=== PATIENT | male | born 1960 | race Caucasian/White ===

== ENCOUNTER 2019-01-19 10:06 | Observation (INO) ==
--- NOTE | 2019-01-19 10:46 | Emergency Department Note ---
Disposition Clinical Impression: Lactic acidosis Nausea and vomiting Qualifiers: Vomiting type: unspecified Vomiting Intractability: intractable Qualified Code(s): R11.2 - Nausea with vomiting, unspecified Follicular lymphoma Qualifiers: Follicular lymphoma grade: unspecified grade Lymphoma site: axillary Qualified Code(s): C82.94 - Follicular lymphoma, unspecified, lymph nodes of axilla and upper limb Disposition: Admitted As Inpatient Condition: Fair Referrals: Brianna Bojorquez MD [Primary Care Provider] - Forms: ED Satisfaction Letter, Work/School Release Abdominal Pain HPI - General Chief Complaint: ED Abdominal Pain Stated Complaint: abd pain,vomiting Time Seen by Provider: 01/19/19 10:13 Nursing Notes Reviewed: Yes Vital Signs Reviewed: Yes - History of Present Illness HPI Narrative: 58 year old male with history of follicular lymphoma stage III who presents the emergency department with complaint of nausea, vomiting, diarrhea and abdominal pain for the last 2 weeks, worse over the last three days. He started taking Idelalisisb in September 2018 and believes his medication is causing his symptoms. He is followed with Dr. Sosa on 01/16/19 but at that point was not having any significant nausea, vomiting. He states he has been unable to keep down any of his medications and feels very tired and rundown since that time. He states the abdominal pain is the worst it has ever been. He did have fever a few days ago. He otherwise states he has baseline shortness of breath due to COPD, not significantly changed, but denies any chest pain, dysuria, hematuria. Pain Scale: 9 - Related Data Home Medications Medication Instructions Recorded Confirmed Albuterol Sulfate [Proair HFA] 2 puff IH BID 04/16/15 01/16/19 Docusate Sodium [Col-Rite] 100 mg PO PRN PRN 04/16/15 01/16/19 Oxycodone HCl/Acetaminophen 1 tab PO TID PRN 04/16/15 01/16/19 [Percocet 10-325 mg Tablet] Sennosides [Natural Vegetable 8.6 mg PO PRN PRN 04/16/15 01/16/19 Laxative] clonazePAM [Klonopin] 1 mg PO HS 04/16/15 01/16/19 Acetaminophen [Tylenol] 325 mg PO Q6HR PRN 10/18/16 01/16/19 Sildenafil Citrate [Viagra] 100 mg PO DAILY PRN 10/18/16 01/16/19 Tiotropium [Spiriva] 1 cap IH DAILY 10/18/16 01/16/19 Ondansetron HCl 4 mg PO Q6H PRN 12/27/16 01/16/19 Morphine Sulfate [Morphine Sulfate 30 mg PO BID 01/16/19 01/16/19 ER] Previous Rx's Medication Instructions Recorded Prochlorperazine Maleate 10 mg PO Q6HR PRN #30 tablet 10/06/17 [Compazine] Cyanocobalamin (Vitamin B-12) 1,000 mcg PO DAILY #30 tab 08/17/18 [Vitamin B12] Folic Acid 1 mg PO DAILY #30 tablet 08/17/18 Lactulose 15 ml PO BID #900 mls 11/07/18 Sulfamethoxazole/Trimeth DS 1 each PO DAILY #30 tablet 12/11/18 [Bactrim DS] Idelalisib [Zydelig] 150 mg PO BID #60 tablet 01/16/19 Allergies Allergy/AdvReac Type Severity Reaction Status Date / Time Penicillins Allergy Severe Swelling Verified 01/19/19 13:25 of Lip/Tongue/Throat Review of Systems: ROS per history of present illness, all other systems reviewed and negative or normal. All systems ED: reviewed and negative except as stated. Review of Systems: As Per HPI Abdominal Pain PMH - Past Medical History Medical history: Reports: cancer, hyperlipidemia, other Male Surgical History: Reports: breast surgery, Tonsillectomy Psychiatric history: Reports: depression - Social History Smoking status: Current every day smoker Alcohol use: Reports: none Drug use: Reports: none Physical Exam General: Conversant. No apparent distress. Follow commands. Appears significantly older than stated age. Thin and cachectic. Neck: No JVD. Trachea midline. Neck supple. Eyes: PERRL. No scleral icterus. HENT: Normocephalic and atraumatic. Dry mucus membranes. Cardiovascular: Regular rate and rhythm. Normal S1 and S2. No murmurs appreciated. Normal capillary refill. Extremities well perfused with 2+ distal pulses bilaterally. No edema. Pulmonary: Normal and equal breath sounds bilaterally, anteriorly and posteriorly. No wheezes, rales, or rhonchi. Not in respiratory distress. Speaks in full sentences. Abdomen: Soft, nondistended. Guarding and tenderness throughout. Neuro: Alert and oriented x3. No slurred speech. No focal deficits noted. Skin: No rashes noted on visualized skin. He will Musculoskeletal: No bony abnormalities visualized. Moves all extremities. Psych: Normal mood. Pleasant. Makes appropriate eye contact. - General General appearance: alert Course Vital Signs Temperature 98.5 F 01/19/19 10:16 Pulse Rate 98 01/19/19 10:16 Respiratory Rate 20 01/19/19 10:16 Blood Pressure 134/82 01/19/19 10:16 O2 Sat by Pulse Oximetry 98 01/19/19 10:16 Temperature 98.5 F 01/19/19 10:16 Pulse Rate 98 01/19/19 10:16 Respiratory Rate 20 01/19/19 10:16 Blood Pressure 134/82 01/19/19 10:16 O2 Sat by Pulse Oximetry 98 01/19/19 10:16 Oxygen Delivery Oxygen Delivery Room Air Abdominal Pain - MDM Narrative Medical decision making narrative: 58 year old male who presents the emergency department due to in lead to tolerate oral medications or fluid. He has had significant weight loss over the last couple of months. He continues to have significant abdominal pain. He was seen by his oncologist approximately 4 days ago but at that point was not having significant nausea and vomiting. On arrival the patient is borderline tachycardic but has no fever but appears overall unwell. He appears dehydrated. He has diffuse abdominal tenderness and given his history of follicular lymphoma we did obtain CBC, BMP, lipase, lactate, urinalysis as well as CT ab domen and pelvis. The patient has no evidence of anemia, only mild hyponatremia of 135 without other significant electrolyte abnormalities. Blood cultures were drawn given recent fever and immunocompromised status. Urinalysis shows no evidence of urinary tract infection. Lactate elevated at 2.3. The patient was given 2 L fluid bolus as well as IV Zofran and Dilaudid. EKG shows normal sinus rhythm rate of [address] abdomen shows diffuse colitis, chest x-ray shows New left upper lobe scarring likely secondary to treatment. Given the patient's inability to tolerate anything oral at home and dehydrated appearance to believe warrants admission for continued management. He states he has been unable to care for himself due to significant weakness and vomiting. Discussed case with on-call hospitalist Dr. Smiley who agrees with plan for admission and accepts the patient to the inpatient service. Patient agrees with and understands course of treatment plan including plan for admission. All questions answered. - Medical Records Medical records reviewed: Yes I reviewed the patient's medical records. - Lab Data Lab results reviewed: Yes I reviewed the patient's lab results. Result diagrams: 01/19/19 11:04 01/19/19 11:04 Lab Results 01/19/19 01/19/19 01/19/19 Range/Units 11:04 11:04 11:04 WBC 7.7 (4.3-11.1) K/mcL RBC 4.27 (4.19-5.50) M/mcL Hgb 14.1 (12.9-16.9) g/dL Hct 41.8 (37.5-50.1) % MCV 97.9 (83.0-100.0) fL MCH 33.0 (28.0-33.3) pg MCHC 33.7 (31.6-35.5) g/dL RDW 12.9 (11.5-14.5) % Plt Count 326 (140-400) K/mcL MPV 8.8 L (9.4-12.4) fL Immature Gran % 0.4 (0-4) % Seg Neutrophils % 67.1 % Lymphocytes % 17.4 % Monocytes % 13.1 % Eosinophils % 1.7 % Basophils % 0.3 % Neutrophils # 5.2 (1.6-8.9) K/mcL Lymphocytes # 1.3 (0.6-4.6) K/mcL Monocytes # 1.0 (0.0-1.3) K/mcL Eosinophils # 0.1 (0.0-0.6) K/mcL Basophils # 0.0 (0.0-0.2) K/mcL Sodium 135 L (136-145) mEq/L Potassium 3.8 (3.5-5.1) mEq/L Chloride 98 (98-107) mEq/L Carbon Dioxide 28 (23-29) mEq/L BUN 8 (6-20) mg/dL Creatinine 0.70 (0.70-1.30) mg/dL Est GFR ( Amer) > 60 (> 60) Est GFR (Non-Af Amer) > 60 (> 60) BUN/Creatinine Ratio 11 (6-26) Glucose 124 H (70-105) mg/dL Calculated Osmolality 280 (280-300) Lactic Acid (0.5-2.2) mmol/L Calcium 9.1 (8.6-10.3) mg/dL Magnesium 1.8 (1.6-2.6) mg/dL Total Bilirubin 0.5 (0.3-1.0) mg/dL Direct Bilirubin 0.1 (0.0-0.2) mg/dL Indirect Bilirubin 0.4 (0.0-1.2) mg/dL AST 16 (13-39) Units/L ALT 18 (7-52) Units/L Alkaline Phosphatase 92 (34-104) Units/L Serum Total Protein 6.3 L (6.4-8.9) g/dL Albumin 3.7 (3.5-5.7) g/dL Globulin 2.6 (2.4-3.5) g/dL Albumin/Globulin Ratio 1.4 (1.1-2.2) Lipase 18 (11-82) Units/L Urine Color Dark Yellow (Yellow) Urine Clarity Clear (Clear) Urine pH 6.0 (5.0-8.0) pH Units Ur Specific [place] 1.016 (1.010-1.025) Urine Protein Trace (Neg-Trace) mg/dL Urine Glucose (UA) Normal (Normal) mg/dL Urine Ketones Negative (Negative) mg/dL Urine Blood Negative (Negative) Urine Nitrite Negative (Negative) Urine Bilirubin Negative (Negative) Urine Urobilinogen Normal (Normal) mg/dL Ur Leukocyte Esterase Negative (Negative) Ur Culture Indicated? NO (NO) 01/19/19 Range/Units 11:21 WBC (4.3-11.1) K/mcL RBC (4.19-5.50) M/mcL Hgb (12.9-16.9) g/dL Hct (37.5-50.1) % MCV (83.0-100.0) fL MCH (28.0-33.3) pg MCHC (31.6-35.5) g/dL RDW (11.5-14.5) % Plt Count (140-400) K/mcL MPV (9.4-12.4) fL Immature Gran % (0-4) % Seg Neutrophils % % Lymphocytes % % Monocytes % % Eosinophils % % Basophils % % Neutrophils # (1.6-8.9) K/mcL Lymphocytes # (0.6-4.6) K/mcL Monocytes # (0.0-1.3) K/mcL Eosinophils # (0.0-0.6) K/mcL Basophils # (0.0-0.2) K/mcL Sodium (136-145) mEq/L Potassium (3.5-5.1) mEq/L Chloride (98-107) mEq/L Carbon Dioxide (23-29) mEq/L BUN (6-20) mg/dL Creatinine (0.70-1.30) mg/dL Est GFR ( Amer) (> 60) Est GFR (Non-Af Amer) (> 60) BUN/Creatinine Ratio (6-26) Glucose (70-105) mg/dL Calculated Osmolality (280-300) Lactic Acid 2.3 H (0.5-2.2) mmol/L Calcium (8.6-10.3) mg/dL Magnesium (1.6-2.6) mg/dL Total Bilirubin (0.3-1.0) mg/dL Direct Bilirubin (0.0-0.2) mg/dL Indirect Bilirubin (0.0-1.2) mg/dL AST (13-39) Units/L ALT (7-52) Units/L Alkaline Phosphatase (34-104) Units/L Serum Total Protein (6.4-8.9) g/dL Albumin (3.5-5.7) g/dL Globulin (2.4-3.5) g/dL Albumin/Globulin Ratio (1.1-2.2) Lipase (11-82) Units/L Urine Color (Yellow) Urine Clarity (Clear) Urine pH (5.0-8.0) pH Units Ur Specific [place] (1.010-1.025) Urine Protein (Neg-Trace) mg/dL Urine Glucose (UA) (Normal) mg/dL Urine Ketones (Negative) mg/dL Urine Blood (Negative) Urine Nitrite (Negative) Urine Bilirubin (Negative) Urine Urobilinogen (Normal) mg/dL Ur Leukocyte Esterase (Negative) Ur Culture Indicated? (NO) - Radiology Data Radiology results reviewed: Yes I reviewed the patient's radiology results. Abdomen/Pelvis CT 01/19/19 11:03 IMPRESSION: 1. Stable diffuse circumferential wall thickening of the colon, most consistent with a diffuse infectious or inflammatory colitis. There is no evidence of pneumatosis, perforation, or free air. 2. Stable small left pleural effusion and left lower lobe airspace consolidation, representing either atelectasis or pneumonia. 3. Stable chronic nonspecific biliary ductal dilatation without definite demonstrable cause. 4. Patient status post partial left nephrectomy. D/ / 01/19/2019 12:30:28 Yohannes Leonard MD / cherry Interpreting Provider: Yohannes Leonard MD Chest X-Ray 01/19/19 11:04 IMPRESSION: 1. New left upper lobe scarring could be related to post treatment changes. 2. Unchanged small left pleural effusion. D/ / Nolan Kidd MD / Nolan Kidd MD Interpreting Provider: Nolan Kidd MD - EKG Data EKG attestation: Yes I reviewed and interpreted this EKG. EKG results narrative: Normal sinus rhythm rate of 90. Normal axis. No inversions in aVL and deep into, axis and V2 but otherwise no significant changes. No acute ischemic T- wave abnormalities. No change when compared with prior from 12/20/12.
--- NOTE | 2019-01-19 11:07 | Emergency Department Note ---
Disposition Clinical Impression: Lactic acidosis Nausea and vomiting Qualifiers: Vomiting type: unspecified Vomiting Intractability: intractable Qualified Code(s): R11.2 - Nausea with vomiting, unspecified Follicular lymphoma Qualifiers: Follicular lymphoma grade: grade II Lymphoma site: axillary Qualified Code(s): C82.14 - Follicular lymphoma grade II, lymph nodes of axilla and upper limb Disposition: Admitted As Inpatient Condition: Fair General Adult HPI - General Chief complaint: ED Abdominal Pain Stated complaint: abd pain,vomiting Time Seen by Provider: 01/19/19 10:13 Nursing Notes Reviewed: Yes Vital Signs Reviewed: Yes - History of Present Illness Pain Scale: 9 - Related Data Home Medications Medication Instructions Recorded Confirmed Albuterol Sulfate [Proair HFA] 2 puff IH BID 04/16/15 01/16/19 Docusate Sodium [Col-Rite] 100 mg PO PRN PRN 04/16/15 01/16/19 Oxycodone HCl/Acetaminophen 1 tab PO TID PRN 04/16/15 01/16/19 [Percocet 10-325 mg Tablet] Sennosides [Natural Vegetable 8.6 mg PO PRN PRN 04/16/15 01/16/19 Laxative] clonazePAM [Klonopin] 1 mg PO HS 04/16/15 01/16/19 Acetaminophen [Tylenol] 325 mg PO Q6HR PRN 10/18/16 01/16/19 Sildenafil Citrate [Viagra] 100 mg PO DAILY PRN 10/18/16 01/16/19 Tiotropium [Spiriva] 1 cap IH DAILY 10/18/16 01/16/19 Ondansetron HCl 4 mg PO Q6H PRN 12/27/16 01/16/19 Morphine Sulfate [Morphine Sulfate 30 mg PO BID 01/16/19 01/16/19 ER] Previous Rx's Medication Instructions Recorded Prochlorperazine Maleate 10 mg PO Q6HR PRN #30 tablet 10/06/17 [Compazine] Cyanocobalamin (Vitamin B-12) 1,000 mcg PO DAILY #30 tab 08/17/18 [Vitamin B12] Folic Acid 1 mg PO DAILY #30 tablet 08/17/18 Lactulose 15 ml PO BID #900 mls 11/07/18 Sulfamethoxazole/Trimeth DS 1 each PO DAILY #30 tablet 12/11/18 [Bactrim DS] Idelalisib [Zydelig] 150 mg PO BID #60 tablet 01/16/19 Allergies Allergy/AdvReac Type Severity Reaction Status Date / Time Penicillins Allergy Severe Swelling Verified 01/19/19 13:25 of Lip/Tongue/Throat Past Medical History - Past Medical History Medical history: Reports: cancer, hyperlipidemia, other Psychiatric history: Reports: depression - Social History Smoking Status: Current every day smoker Smokeless Tobacco Status: No Alcohol use: Reports: none Drug use: Reports: none Physical Exam - General General appearance: alert Course Vital Signs Temperature 98.5 F 01/19/19 10:16 Pulse Rate 98 01/19/19 10:16 Respiratory Rate 20 01/19/19 10:16 Blood Pressure 134/82 01/19/19 10:16 O2 Sat by Pulse Oximetry 98 01/19/19 10:16 Temperature 98.5 F 01/19/19 10:16 Pulse Rate 98 01/19/19 10:16 Respiratory Rate 20 01/19/19 10:16 Blood Pressure 134/82 01/19/19 10:16 O2 Sat by Pulse Oximetry 98 01/19/19 10:16 Oxygen Delivery Oxygen Delivery Room Air Medical Decision Making - [facility] Narrative Medical decision making narrative: Abdomen/Pelvis CT 01/19/19 11:03 IMPRESSION: 1. Stable diffuse circumferential wall thickening of the colon, most consistent with a diffuse infectious or inflammatory colitis. There is no evidence of pneumatosis, perforation, or free air. 2. Stable small left pleural effusion and left lower lobe airspace consolidation, representing either atelectasis or pneumonia. 3. Stable chronic nonspecific biliary ductal dilatation without definite demonstrable cause. 4. Patient status post partial left nephrectomy. D/ / Yohannes Leonard MD / Yohannes Leonard MD Interpreting Provider: Yohannes Leonard MD Chest X-Ray 01/19/19 11:04 IMPRESSION: 1. New left upper lobe scarring could be related to post treatment changes. 2. Unchanged small left pleural effusion. D/ / Nolan Kidd MD / Nolan Kidd MD Interpreting Provider: Nolan Kidd MD 12:24 hours: We will reassess patient. And then most likely admission. 1315 hrs.: Patient's labs all look that bad but with his not being a year drink and failing outpatient therapy a think he needs come in. Hospitalist as accepted patient for admission patient's in agreement. - Lab Data Result diagrams: 01/19/19 11:04 01/19/19 11:04 Lab Results 01/19/19 01/19/19 01/19/19 Range/Units 11:04 11:04 11:04 WBC 7.7 (4.3-11.1) K/mcL RBC 4.27 (4.19-5.50) M/mcL Hgb 14.1 (12.9-16.9) g/dL Hct 41.8 (37.5-50.1) % MCV 97.9 (83.0-100.0) fL MCH 33.0 (28.0-33.3) pg MCHC 33.7 (31.6-35.5) g/dL RDW 12.9 (11.5-14.5) % Plt Count 326 (140-400) K/mcL MPV 8.8 L (9.4-12.4) fL Immature Gran % 0.4 (0-4) % Seg Neutrophils % 67.1 % Lymphocytes % 17.4 % Monocytes % 13.1 % Eosinophils % 1.7 % Basophils % 0.3 % Neutrophils # 5.2 (1.6-8.9) K/mcL Lymphocytes # 1.3 (0.6-4.6) K/mcL Monocytes # 1.0 (0.0-1.3) K/mcL Eosinophils # 0.1 (0.0-0.6) K/mcL Basophils # 0.0 (0.0-0.2) K/mcL Sodium 135 L (136-145) mEq/L Potassium 3.8 (3.5-5.1) mEq/L Chloride 98 (98-107) mEq/L Carbon Dioxide 28 (23-29) mEq/L BUN 8 (6-20) mg/dL Creatinine 0.70 (0.70-1.30) mg/dL Est GFR ( Amer) > 60 (> 60) Est GFR (Non-Af Amer) > 60 (> 60) BUN/Creatinine Ratio 11 (6-26) Glucose 124 H (70-105) mg/dL Calculated Osmolality 280 (280-300) Lactic Acid (0.5-2.2) mmol/L Calcium 9.1 (8.6-10.3) mg/dL Magnesium 1.8 (1.6-2.6) mg/dL Total Bilirubin 0.5 (0.3-1.0) mg/dL Direct Bilirubin 0.1 (0.0-0.2) mg/dL Indirect Bilirubin 0.4 (0.0-1.2) mg/dL AST 16 (13-39) Units/L ALT 18 (7-52) Units/L Alkaline Phosphatase 92 (34-104) Units/L Serum Total Protein 6.3 L (6.4-8.9) g/dL Albumin 3.7 (3.5-5.7) g/dL Globulin 2.6 (2.4-3.5) g/dL Albumin/Globulin Ratio 1.4 (1.1-2.2) Lipase 18 (11-82) Units/L Urine Color Dark Yellow (Yellow) Urine Clarity Clear (Clear) Urine pH 6.0 (5.0-8.0) pH Units Ur Specific [place] 1.016 (1.010-1.025) Urine Protein Trace (Neg-Trace) mg/dL Urine Glucose (UA) Normal (Normal) mg/dL Urine Ketones Negative (Negative) mg/dL Urine Blood Negative (Negative) Urine Nitrite Negative (Negative) Urine Bilirubin Negative (Negative) Urine Urobilinogen Normal (Normal) mg/dL Ur Leukocyte Esterase Negative (Negative) Ur Culture Indicated? NO (NO) 01/19/19 Range/Units 11:21 WBC (4.3-11.1) K/mcL RBC (4.19-5.50) M/mcL Hgb (12.9-16.9) g/dL Hct (37.5-50.1) % MCV (83.0-100.0) fL MCH (28.0-33.3) pg MCHC (31.6-35.5) g/dL RDW (11.5-14.5) % Plt Count (140-400) K/mcL MPV (9.4-12.4) fL Immature Gran % (0-4) % Seg Neutrophils % % Lymphocytes % % Monocytes % % Eosinophils % % Basophils % % Neutrophils # (1.6-8.9) K/mcL Lymphocytes # (0.6-4.6) K/mcL Monocytes # (0.0-1.3) K/mcL Eosinophils # (0.0-0.6) K/mcL Basophils # (0.0-0.2) K/mcL Sodium (136-145) mEq/L Potassium (3.5-5.1) mEq/L Chloride (98-107) mEq/L Carbon Dioxide (23-29) mEq/L BUN (6-20) mg/dL Creatinine (0.70-1.30) mg/dL Est GFR ( Amer) (> 60) Est GFR (Non-Af Amer) (> 60) BUN/Creatinine Ratio (6-26) Glucose (70-105) mg/dL Calculated Osmolality (280-300) Lactic Acid 2.3 H (0.5-2.2) mmol/L Calcium (8.6-10.3) mg/dL Magnesium (1.6-2.6) mg/dL Total Bilirubin (0.3-1.0) mg/dL Direct Bilirubin (0.0-0.2) mg/dL Indirect Bilirubin (0.0-1.2) mg/dL AST (13-39) Units/L ALT (7-52) Units/L Alkaline Phosphatase (34-104) Units/L Serum Total Protein (6.4-8.9) g/dL Albumin (3.5-5.7) g/dL Globulin (2.4-3.5) g/dL Albumin/Globulin Ratio (1.1-2.2) Lipase (11-82) Units/L Urine Color (Yellow) Urine Clarity (Clear) Urine pH (5.0-8.0) pH Units Ur Specific [place] (1.010-1.025) Urine Protein (Neg-Trace) mg/dL Urine Glucose (UA) (Normal) mg/dL Urine Ketones (Negative) mg/dL Urine Blood (Negative) Urine Nitrite (Negative) Urine Bilirubin (Negative) Urine Urobilinogen (Normal) mg/dL Ur Leukocyte Esterase (Negative) Ur Culture Indicated? (NO) Attestation Statement - Attestation Attestation: This documentation is done with the assistance of Dragon dictation. Despite efforts made to ensure accuracy, there may be inaccuracies in ceiling insulation blower or spelling and typographical errors. I examined this patient and my medical decision-making was reviewed with the Resident Physician. I agree with the documented findings, disposition and treatment plan as described except to the extent set forth below. Patient seen and evaluated today by Dr. Israel and myself, I agree with her evaluation and management plan, I supervised the care the patient's stay. Patient presents today with abdominal pain and weight loss vomiting and constipation he has had a history of follicular carcinoma he has falls with the oncology center. He has had at least a 60 weight loss or last couple months. History of colitis recently also. It looks like anemia. Was seen and he says that a potassium infusion potassium infusion. Not feeling better. Were going to do a workup on him CT his abdomen and reassess most likely he will need admission.
[2019-01-19] MEDS ORDERED: *HR* HYDROmorphone (PF) 1 MG/ML SYRINGE IVP ONE (11:08)
[2019-01-19] MEDS ORDERED: 0.9 % Sodium Chloride 1,000 ML IVC ONE (11:08)
[2019-01-19] MEDS ORDERED: Ondansetron 4 MG/2 ML VIAL IVP ONE (11:08)
[2019-01-19 11:24] LABS: Bilirubin,Urine Negative (Negative); Blood,Urine Negative (Negative); Clarity,Urine Clear (Clear); Color,Urine Dark Yellow (Yellow); Glucose,Urine (UA) Normal (Normal); Ketones,Urine Negative (Negative); Leukocyte Esterase,Urine Negative (Negative); Nitrite,Urine Negative (Negative); Protein,Urine Trace mg/dL (Neg-Trace); Specific Gravity,Urine 1.016 (1.010-1.025); Urobilinogen,Urine Normal (Normal)
[2019-01-19 11:32] LABS: Basophils % 0.3 %; Eosinophils # 0.1 K/mcL (0.0-0.6); Eosinophils % 1.7 %; Hematocrit 41.8 % (37.5-50.1); Hemoglobin 14.1 g/dL (12.9-16.9); Immature Granulocytes % 0.4 % (0-4); Lymphocytes # 1.3 K/mcL (0.6-4.6); Lymphocytes % 17.4 %; Mean Corpuscular HGB Conc 33.7 g/dL (31.6-35.5); Mean Corpuscular Volume 97.9 fL (83.0-100.0); Mean Platelet Volume 8.8 fL (9.4-12.4); Monocytes % 13.1 %; Neutrophils # 5.2 K/mcL (1.6-8.9); Platelet Count 326 K/mcL (140-400); Red Blood Count 4.27 M/mcL (4.19-5.50); Red Cell Distribution Width 12.9 % (11.5-14.5); Segmented Neutrophils % 67.1 %
[2019-01-19 11:40] LABS: Alanine Aminotransferase 18 Units/L (7-52); Albumin 3.7 g/dL (3.5-5.7); Alkaline Phosphatase 92 Units/L (34-104); Aspartate Amino Transferase 16 Units/L (13-39); BUN/Creatinine Ratio 11 (6-26); Bilirubin,Direct 0.1 mg/dL (0.0-0.2); Bilirubin,Indirect 0.4 mg/dL (0.0-1.2); Bilirubin,Total 0.5 mg/dL (0.3-1.0); Blood Urea Nitrogen 8 mg/dL (6-20); Calcium 9.1 mg/dL (8.6-10.3); Carbon Dioxide 28 mEq/L (23-29); Chloride 98 mEq/L (98-107); Glucose 124 mg/dL (70-105); Magnesium 1.8 mg/dL (1.6-2.6); Osmolality,Calculated 280 (280-300); Potassium 3.8 mEq/L (3.5-5.1); Sodium 135 mEq/L (136-145); Total Protein 6.3 g/dL (6.4-8.9); eGFR For Non-African Americans > 60 (> 60)
[2019-01-19 11:41] LABS: Albumin/Globulin Ratio 1.4 (1.1-2.2); Globulin 2.6 g/dL (2.4-3.5); Lipase 18 Units/L (11-82)
[2019-01-19] MEDS ORDERED: Naloxone 0.4 MG/ML INJ IVP PRN (13:33)
[2019-01-19] MEDS ORDERED: 0.9 % Sodium Chloride 1,000 ML IVC STA (13:35)
--- NOTE | 2019-01-19 14:08 | Internal Med History&Physical ---
Date of Encounter: 01/19/19 Time of Encounter: 13:58 Internal Medicine - H&P: HPI Chief complaint: diarrhea Admitted From: Home Plans for Post Hospital Care: Home History of present illness: Mr. 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 as per patient his diarrhea started about one week ago and has been progressively worsening. he describes his diarrhea as water stools, without blood. he has had >7 BMs in olga past 12 hours which prompter him to come to the ED. in addition to diarrhea he also complains of diffuse, non-radiating abdominal cramping that accompanies the diarrhea. he denies tenesmus or incontinence. noone else in the family has had similar symptoms. new medication Idelalisisb was added to his medication regimen since september last dose taken was on 01/16. he discussed his diarrhea with his oncologist who ordered PO Abx and IV hydration however since he continued to have diarrhea he decided to come to the ED for further management. furthermore he now has developed nausea adn is unable to tolerate any of his medication nor food/liquids. he denies eating at restaurants, has had no skin color changes. denies taking over the counter medications. he denies fever, chills, chest pain, SOB, URTI, leg pain, leg swelling, calf tenderness, orthopnea or PND. Past Med Surg Social Fam HX - Past Medical History Medical history: cancer, hyperlipidemia, other Additional medical history: lymphoma, sarcoma, murmur Psychiatric history: depression - Past Surgical History Additional surgical history: partial left nephrectomy - Social History Smoking Status: Current every day smoker Smokeless Tobacco Status: No Alcohol use: none Drug use: none Internal Medicine - H&P: Meds Albuterol Sulfate [Proair HFA] 2 puff IH BID 04/16/15 [History] Docusate Sodium [Col-Rite] 100 mg PO PRN PRN 04/16/15 [History] Oxycodone HCl/Acetaminophen [Percocet 10-325 mg Tablet] 1 tab PO TID PRN 04/16/15 [History] Sennosides [Natural Vegetable Laxative] 8.6 mg PO PRN PRN 04/16/15 [History] clonazePAM [Klonopin] 1 mg PO HS 04/16/15 [History] Acetaminophen [Tylenol] 325 mg PO Q6HR PRN 10/18/16 [History] Sildenafil Citrate [Viagra] 100 mg PO DAILY PRN 10/18/16 [History] Tiotropium [Spiriva] 1 cap IH DAILY 10/18/16 [History] Ondansetron HCl 4 mg PO Q6H PRN 12/27/16 [History] Prochlorperazine Maleate [Compazine] 10 mg PO Q6HR PRN #30 tablet 10/06/17 [Rx] Cyanocobalamin (Vitamin B-12) [Vitamin B12] 1,000 mcg PO DAILY #30 tab 08/17/18 [Rx] Folic Acid 1 mg PO DAILY #30 tablet 08/17/18 [Rx] Lactulose 15 ml PO BID #900 mls 11/07/18 [Rx] Sulfamethoxazole/Trimeth DS [Bactrim DS] 1 each PO DAILY #30 tablet 12/11/18 [Rx] Idelalisib [Zydelig] 150 mg PO BID #60 tablet 01/16/19 [Rx] Morphine Sulfate [Morphine Sulfate ER] 30 mg PO BID 01/16/19 [History] Allergy/AdvReac Type Severity Reaction Status Date / Time Penicillins Allergy Severe Swelling Verified 01/19/19 13:25 of Lip/Tongue/Throat All Systems PM: A 10-system review of systems was performed and is negative for pertinent findings except as documented above in the HPI. - Constitutional Vitals: Temp Pulse Resp BP Pulse Ox 98.5 F 98 20 134/82 98 01/19/19 10:16 01/19/19 10:16 01/19/19 10:16 01/19/19 10:16 01/19/19 10:16 Exam: General: Patient is alert, oriented, no acute distress, looks much older than his age Head: atraumatic, normocephalic, Eye: normal appearance, PERRL, no scleral icterus, no conjunctival injection ENT: mucous membranes moist, normal external ear exam Neck: normal inspection, trachea midline, full ROM, no carotid bruits Chest: normal inspection, symmetric chest rise Respiratory: Good respiratory effort. Bilateral breath sounds are clear without wheezing, crackles, or rhonchi. Cardiovascular: Regular rate and rhythm. s1 and s2 No clicks, rubs, gallops, or murmors. Abdomen: Bowel sounds present normoactive x-4 quadrants. Abdomen is soft, nondistended. no Epigastric tenderness. No guarding or rebound. No organomegaly noted, has a eryhthematous maculopapular rash of the abdomen ( chronic) musculoskeletal: Spontaneously moving all extremities. no edema, no calf tenderness Skin: warm, dry, intact. Neuro: Alert and oriented x4. no focal deficit , Psych: Patient's affect is normal Internal Med - H&P Results - Labs CBC & Chem 7: 01/19/19 11:04 01/19/19 11:04 Labs: Short CBC 01/19/19 Range/Units 11:04 WBC 7.7 (4.3-11.1) K/mcL Hgb 14.1 (12.9-16.9) g/dL Hct 41.8 (37.5-50.1) % Plt Count 326 (140-400) K/mcL Neutrophils # 5.2 (1.6-8.9) K/mcL BMP 01/19/19 11:04 Sodium 135 L Potassium 3.8 Chloride 98 Carbon Dioxide 28 BUN 8 Creatinine 0.70 Glucose 124 H Calcium 9.1 Liver Function 01/19/19 Range/Units 11:04 Total Bilirubin 0.5 (0.3-1.0) mg/dL Direct Bilirubin 0.1 (0.0-0.2) mg/dL AST 16 (13-39) Units/L ALT 18 (7-52) Units/L Alkaline Phosphatase 92 (34-104) Units/L Albumin 3.7 (3.5-5.7) g/dL Urine 01/19/19 Range/Units 11:04 Urine Color Dark Yellow (Yellow) Urine Clarity Clear (Clear) Urine pH 6.0 (5.0-8.0) pH Units Ur Specific [place] 1.016 (1.010-1.025) Urine Protein Trace (Neg-Trace) mg/dL Urine Glucose (UA) Normal (Normal) mg/dL - EKG Data -: EKG Interpreted by Myself EKG shows normal: sinus rhythm - EKG Data Prior EKG available for review: no - Impressions ITS Impressions Abdomen/Pelvis CT 01/19/19 11:03 IMPRESSION: 1. Stable diffuse circumferential wall thickening of the colon, most consistent with a diffuse infectious or inflammatory colitis. There is no evidence of pneumatosis, perforation, or free air. 2. Stable small left pleural effusion and left lower lobe airspace consolidation, representing either atelectasis or pneumonia. 3. Stable chronic nonspecific biliary ductal dilatation without definite demonstrable cause. 4. Patient status post partial left nephrectomy. D/ / 01/19/2019 12:30:28 Yohannes Leonard MD / cherry Interpreting Provider: Yohannes Leonard MD Chest X-Ray 01/19/19 11:04 IMPRESSION: 1. New left upper lobe scarring could be related to post treatment changes. 2. Unchanged small left pleural effusion. D/ / Nolan Kidd MD / Nolan Kidd MD Interpreting Provider: Nolan Kidd MD - Assessment and Plan (1) Colitis presumed infectious Current Visit: Yes Status: Acute Assessment and plan: [facility] out other etiologies GI stool panel sent follow for C-Dif started on ciprofloxacin and metronidazole IV hydration watch for overload keep NPO for now zofran for nausea and vomiting hold Idelalisisb until diarrhea resolves (Dr. toledo had held it on 01/16 and postponed by 1 week) consider GI consult if symptoms do not improve follow electrolytes and replace PRN intake and output follow lactic acid Ct A/P Stable diffuse circumferential wall thickening of the colon, most consistent with a diffuse infectious or inflammatory colitis. There is no evidence of pneumatosis, perforation, or free air. (2) Follicular lymphoma Current Visit: Yes Status: Acute Assessment and plan: has history of multiple cancers including follicular lymphoma continue bactrim for PCP prophylaxis ( changed to IV) follows with Dr. Toledo consider oncology consult while in hospital. (3) COPD (chronic obstructive pulmonary disease) Current Visit: No Status: Acute Assessment and plan: bot in exacerbation continue home inhalers Qualifiers: COPD type: emphysema Emphysema type: unspecified Qualified Code(s): J43.9 - Emphysema, unspecified (4) DVT prophylaxis Current Visit: Yes Status: Acute Assessment and plan: lovenox sc - Time Spent With Patient Total time spent is greater than 50% in coordination of care (as documented) at patient's floor/unit and/or counseling patient:
[2019-01-19] MEDS: Sulfamethoxazole/Trimeth 10 ML in D5% in Water 500 ML IVPB SCH (16:07)
[2019-01-19] MEDS: Ringers Solution, Lactated 1,000 ML IVC SCH (16:08)
[2019-01-19] MEDS: MetroNIDAZOLE 500 MG/100 ML 500 MG/100 ML BAG IVPB SCH (16:08)
[2019-01-19] MEDS: OXYCODONE Oral CONC 10 MG/0.5 ML ORAL.SYG SL PRN ×2 (16:08→21:47)
[2019-01-19] MEDS: Ketorolac 15 MG/ML VIAL IVP PRN (20:08)
[2019-01-19] MEDS: clonazePAM 0.5 MG TABLET PO SCH (23:11)
[2019-01-20] MEDS: MetroNIDAZOLE 500 MG/100 ML 500 MG/100 ML BAG IVPB SCH ×3 (00:16→16:24)
[2019-01-20] MEDS: OXYCODONE Oral CONC 10 MG/0.5 ML ORAL.SYG SL PRN ×4 (02:05→19:57)
[2019-01-20 03:57] LABS: Hematocrit 37.2 % (37.5-50.1); Mean Corpuscular HGB Conc 33.6 g/dL (31.6-35.5); Mean Corpuscular Hemoglobin 33.4 pg (28.0-33.3); Mean Corpuscular Volume 99.5 fL (83.0-100.0); Mean Platelet Volume 8.9 fL (9.4-12.4); Platelet Count 287 K/mcL (140-400); Red Blood Count 3.74 M/mcL (4.19-5.50); Red Cell Distribution Width 12.8 % (11.5-14.5)
[2019-01-20 04:03] LABS: Hemoglobin 12.5 g/dL (12.9-16.9)
[2019-01-20 04:15] LABS: Alanine Aminotransferase 14 Units/L (7-52); Albumin/Globulin Ratio 1.6 (1.1-2.2); Alkaline Phosphatase 76 Units/L (34-104); Aspartate Amino Transferase 14 Units/L (13-39); BUN/Creatinine Ratio 10 (6-26); Bilirubin,Total 0.4 mg/dL (0.3-1.0); Blood Urea Nitrogen 7 mg/dL (6-20); Calcium 8.1 mg/dL (8.6-10.3); Carbon Dioxide 28 mEq/L (23-29); Chloride 99 mEq/L (98-107); Globulin 1.9 g/dL (2.4-3.5); Glucose 99 mg/dL (70-105); Magnesium 1.5 mg/dL (1.6-2.6); Osmolality,Calculated 278 (280-300); Phosphorous 3.3 mg/dL (2.7-4.5); Potassium 3.4 mEq/L (3.5-5.1); Sodium 135 mEq/L (136-145); Total Protein 4.9 g/dL (6.4-8.9); eGFR For Non-African Americans > 60 (> 60)
[2019-01-20] MEDS: Ketorolac 15 MG/ML VIAL IVP PRN ×3 (04:20→16:24)
[2019-01-20] MEDS ORDERED: Potassium Chloride Elixir 20 MEQ/15 ML UDC PO ONE (07:48)
[2019-01-20] MEDS: Ringers Solution, Lactated 1,000 ML IVC SCH ×2 (08:19→16:42)
[2019-01-20] MEDS: Tiotropium 18 MCG inhalation IH SCH (10:45)
[2019-01-20] MEDS: Nicotine 21 MG PATCH.TD24 TD SCH (11:05)
[2019-01-20] MEDS ORDERED: *HR* Promethazine 25 MG/ML VIAL IVP PRN (12:34)
--- NOTE | 2019-01-20 12:38 | Internal Med Progress Note ---
Hospitalist Progress Note - Encounter Date of Encounter: 01/20/19 Time of Encounter: 12:35 - Subjective Interval History: Pt states he feels slightly more comfortable than yesterday, although still having abd pain and loose stools and still some persistent nausea. However, currently no vomiting and states he is interested in trying PO hydration today with continued supportive care/meds. No headache fever chills SOB or swelling. - Exam Vitals: Temp Pulse Resp BP Pulse Ox 98.3 F 89 16 112/71 94 01/20/19 10:15 01/20/19 10:15 01/20/19 10:46 01/20/19 10:15 01/20/19 10:46 Exam: General: NAD, good eye contact, appears chronically ill and older than stated age Thoracic: Normal breath sounds b/l, no wheezing or crackles Cardio: Normal S1 and S2, regular rate and rhythm Abdomen: Soft, nontender, nondistended, no rebound Extremities: Warm, well perfused. DP pulses 2+ b/l. No edema. Skin: Intact. No rashes, bruises, or ulcers Neuro: Awake, fully oriented. Speech fluent - Summary of Assessment and Plan Summary of Assessment and Plan: Chris Angeles is a 58 M w hx COPD, sarcoma, renal cell carcinoma, and follicular lymphoma currently on chemo, who p/w abd pain, N/V/D, and inability to PO, with CT abd showing colitis, concerning for infectious or inflammatory colitis. Acute Colitis: presumed infectious due to immunocompromise 2/2 malignancy on chemo. C/b refractory N/V - stool panel and c diff as able - cipro/flagyl iv - nausea support - advance to clears - continue MIVF - holding chemo - oncology consult Hypokalemia: replace and monitor Hypomagnesemia: replace and monitor Follicular lymphoma: hx two other solid malignancies in past. F/w Dr Sosa, on bactrim ppx, holding chemo, onc consult as above COPD: home inhalers PPx: lovenox FEN: clears, MIVF LR@80 Lines: PIV Consults: Onc Code: DNRCC-A DNI Dispo: patient requires inpatient eval and management at this time. Anticipate 2-3 days. Will be homegoing Internal Medicine: Result - Labs CBC & Chem 7: 01/20/19 02:58 01/20/19 02:58 Labs: Short CBC 01/20/19 Range/Units 02:58 WBC 7.4 (4.3-11.1) K/mcL Hgb 12.5 L D (12.9-16.9) g/dL Hct 37.2 L (37.5-50.1) % Plt Count 287 (140-400) K/mcL BMP 01/20/19 02:58 Sodium 135 L Potassium 3.4 L Chloride 99 Carbon Dioxide 28 BUN 7 Creatinine 0.68 L Glucose 99 Calcium 8.1 L Liver Function 01/20/19 Range/Units 02:58 Total Bilirubin 0.4 (0.3-1.0) mg/dL AST 14 (13-39) Units/L ALT 14 (7-52) Units/L Alkaline Phosphatase 76 (34-104) Units/L Albumin 3.0 L (3.5-5.7) g/dL Consult Discharge Plan - Plan Referrals: Brianna Bojorquez MD [Primary Care Provider] -
[2019-01-20] MEDS: *HR* Enoxaparin 40 MG/0.4 ML SYRINGE SQ SCH (13:11)
[2019-01-20] MEDS: Ondansetron 4 MG/2 ML VIAL IVP PRN (13:11)
[2019-01-20 13:41] LABS: Adenovirus F 40/41 PCR Not detected (Not detect); Astrovirus PCR Not detected (Not detect); C.difficile Toxin A/B Gene PCR Not detected (Not detect); Campylobacter by PCR Not detected (Not detect); Cryptosporidium by PCR Not detected (Not detect); Cyclospora cayetanensis PCR Not detected (Not detect); E. coli O157 by PCR Not detected (Not detect); Entamoeba histolytica PCR Not detected (Not detect); Enteroaggregative E.coli(EAEC) Not detected (Not detect); Enteropathogenic E.coli(EPEC) Not detected (Not detect); Enterotoxigenic E.coli (ETEC) Not detected (Not detect); Giardia lamblia PCR Not detected (Not detect); Norovirus GI/GII PCR Not detected (Not detect); Plesiomonas shigelloides PCR Not detected (Not detect); Rotavirus A PCR Not detected (Not detect); Salmonella PCR Not detected (Not detect); Sapovirus PCR Not detected (Not detect); Shig/EnteroinvasiveE coli EIEC Not detected (Not detect); Shigalike tox-prod E coli STEC Not detected (Not detect); Vibrio PCR Not detected (Not detect); Vibrio cholerae PCR Not detected (Not detect); Yersinia enterocolitica PCR Not detected (Not detect)
[2019-01-20] MEDS: Sulfamethoxazole/Trimeth 10 ML in D5% in Water 500 ML IVPB SCH (16:23)
[2019-01-20] MEDS: clonazePAM 0.5 MG TABLET PO SCH (21:11)
[2019-01-21] MEDS: MetroNIDAZOLE 500 MG/100 ML 500 MG/100 ML BAG IVPB SCH (00:07)
[2019-01-21] MEDS: Ringers Solution, Lactated 1,000 ML IVC SCH ×2 (00:35→13:00)
[2019-01-21] MEDS: OXYCODONE Oral CONC 10 MG/0.5 ML ORAL.SYG SL PRN ×3 (01:29→12:59)
[2019-01-21] MEDS: Ketorolac 15 MG/ML VIAL IVP PRN ×2 (04:22→11:23)
[2019-01-21] MEDS: *HR* Enoxaparin 40 MG/0.4 ML SYRINGE SQ SCH (06:32)
[2019-01-21 08:36] LABS: Hematocrit 36.4 % (37.5-50.1); Hemoglobin 12.3 g/dL (12.9-16.9); Mean Corpuscular HGB Conc 33.8 g/dL (31.6-35.5); Mean Corpuscular Hemoglobin 33.7 pg (28.0-33.3); Mean Corpuscular Volume 99.7 fL (83.0-100.0); Mean Platelet Volume 8.6 fL (9.4-12.4); Platelet Count 261 K/mcL (140-400); Red Blood Count 3.65 M/mcL (4.19-5.50); Red Cell Distribution Width 12.7 % (11.5-14.5)
[2019-01-21] MEDS: Sulfamethoxazole/Trimeth DS 1 EACH TABLET PO SCH (08:59)
[2019-01-21] MEDS: metroNIDAZOLE 500 MG TABLET PO SCH ×3 (08:59→20:22)
[2019-01-21] MEDS: Nicotine 21 MG PATCH.TD24 TD SCH (08:59)
[2019-01-21 09:23] LABS: BUN/Creatinine Ratio 9 (6-26); Blood Urea Nitrogen 6 mg/dL (6-20); Carbon Dioxide 28 mEq/L (23-29); Chloride 101 mEq/L (98-107); Glucose 98 mg/dL (70-105); Magnesium 1.9 mg/dL (1.6-2.6); Osmolality,Calculated 278 (280-300); Potassium 4.2 mEq/L (3.5-5.1); Sodium 135 mEq/L (136-145); eGFR For Non-African Americans > 60 (> 60)
[2019-01-21] MEDS: Tiotropium 18 MCG inhalation IH SCH (10:27)
--- NOTE | 2019-01-21 10:53 | Electrocardiograph Report ---
[place] [id number] Test Date: 2019-01-19 Pat Name: Chris Angeles Department: EXAM1 Room: 3A48 Gender: M Prevention Specialist: : [id number] Requested By: Verona Israel Order Number: [id number] Reading MD: Ting Santos Measurements Intervals [place] Rate: 90 P: 82 OR: 146 QRS: 74 QRSD: 81 T: 75 QT: 352 QTc: 431 Interpretive Statements Sinus rhythm Consider left ventricular hypertrophy Electronically Signed On 01-21-2019 10:52:28 EDT by Ting Santos
--- NOTE | 2019-01-21 12:32 | Oncology Inp Consult Note ---
<Taylor Wright Bridgett - Last Filed: 01/21/19 14:40> Date of Encounter: 01/21/19 Time of Encounter: 11:00 Assessment and Plan (1) Colitis Status: Acute Assessment and plan: CT abdomen/pelvis on 01/19/2019 reveals Stable diffuse circumferential wall t hickening of the colon (first noted on CT scan on 01/10/2019), most consistent with a diffuse infectious or inflammatory colitis. There is no evidence of pneumatosis, perforation, or free air. Stool cx/c. diff negative Plan: Currently on cipro/flagyl Advancing to clears today Continue with supportive management Continue to hold Idelalisib (discussed below) (2) Follicular lymphoma Status: Acute Assessment and plan: Follicular lymphoma. Weekly Rituxan finished 2011 followed by Rituxan maintenance every two months since 05/01/2012. Gave five doses, last one was 03/2013. Second line treatment bendamustine 90 mg/m day one and 2 with Rituxan 3 75 mg/m day one every 4 weeks, completed six cycles on April 20, 2017 Further progression noted on PET scan 08/22/18 shows enlarging metabolically active bilateral inguinal and left external iliac lymph nodes Pathology on 09/10/2018 of the inguinal lymph node showed follicular lymphoma grade 1-2. Ki-67 high at 60%. CD10 BCL-2 and BCL 6 positive Current therapy includes Idelalisib 150 mg by mouth twice a day sice September 2018 Plan: He continues Bactrim double strength by mouth once a day for PCP prophylaxis. CT chest abdomen and pelvis with contrast 01/10/2019 showed mild interval decrease in the mediastinal lymphadenopathy. Hold Idelalisib, his colitis may be 2/2 Idelalisib, known to have GI side effects as single agent including colitis Given severity of symptoms, he may need dose reduction to 100 mg PO BID, this will be determined by Dr. Sosa as outpatient once acute issues resolve, continue with supportive management Qualifiers: Follicular lymphoma grade: grade II Lymphoma site: axillary Qualified Code(s): C82.14 - Follicular lymphoma grade II, lymph nodes of axilla and upper limb - Data of Consult Patient: new to practice Consult date: 01/21/19 Requesting Physician: Benedicto Louis Primary Care Provider: Brianna Bojorquez - Consult Narrative Reason for consult: Follicular Lymphoma History of present illness: Mr. Angeles is a 67 year old male with history of Follicular Lymphoma on Idelalisib since September 2018, Soft tissue sarcoma right forehead, Renal Cell carcinoma, COPD. He presented to [facility] for worsening diarrhea, abdominal pain/diffuse cramps and weakness that has been ongoing for almost 2 weeks. He had a CT scan of the abdomen and pelvis on 01/10/2019 which noted findings of diffuse colitis, otherwise stable and slight decrease in disease. He was seen by Dr. Sosa on 01/16/2019 and at that time was already on flagyl/cipro. He was planned for outpatient management with IVF/K and stool samples. Last dose of Idelalisib was on 01/15/19, he as awaiting shipment but instructed to delay taking for at least one week to allow improvement of colitis. He presented to [facility] on 01/19/2019. He reports continued abdominal pain/cramps, nausea, vomiting and diarrhea of gre ater than 10 liquid non-bloody stools per day. He reports subjective fevers/chills. No vomiting since admission, continues to have diarrhea. No other ill contacts in family. Past Med Surg Social Fam HX - Past Medical History Medical history: cancer, COPD, hyperlipidemia, other Additional medical history: Scarcoma (head and neck), skin cancer, Mass to right lower lobe, heart murmur Psychiatric history: depression - Past Surgical History Surgical History: tonsilectomy Additional surgical history: partial left nephrectomy (for cancer), 3 surgeries on head, 1 on neck, tumor removed from right breast, rods and pins to left leg, left groin biopsy, needle biopsy to right groin - Social History Smoking Status: Current every day smoker Packs per day: 0.75 Smokeless Tobacco Status: No Alcohol use: none Drug use: none Medications and Allergies Albuterol Sulfate [Proair HFA] 2 puff IH QID 04/16/15 [History] Oxycodone HCl/Acetaminophen [Percocet 10-325 mg Tablet] 1 tab PO TID PRN 04/16/15 [History] Sildenafil Citrate [Viagra] 100 mg PO DAILY PRN 10/18/16 [History] Ondansetron HCl 4 mg PO Q6H PRN 12/27/16 [History] Prochlorperazine Maleate [Compazine] 10 mg PO Q6HR PRN #30 tablet 10/06/17 [Rx] Cyanocobalamin (Vitamin B-12) [Vitamin B12] 1,000 mcg PO DAILY #30 tab 08/17/18 [Rx] Folic Acid 1 mg PO DAILY #30 tablet 08/17/18 [Rx] Sulfamethoxazole/Trimeth DS [Bactrim DS] 1 each PO DAILY #30 tablet 12/11/18 [Rx] Idelalisib [Zydelig] 150 mg PO BID #60 tablet 01/16/19 [Rx] Morphine Sulfate [Arymo ER] 30 mg PO BID 01/19/19 [History] clonazePAM [Clonazepam] 1 mg PO HS 01/19/19 [History] Allergy/AdvReac Type Severity Reaction Status Date / Time Penicillins Allergy Severe Swelling Verified 01/19/19 13:25 of Lip/Tongue/Throat Constitutional: Present: anorexia, chills, fatigue, fever(s), malaise, weakness, weight loss. Absent: headache(s) Eyes: Absent: blurry vision Nose, mouth and throat: Absent: dysphagia, odynophagia Cardiovascular: Absent: chest pain Respiratory: Present: dyspnea on exertion Gastrointestinal: Present: as per HPI, abdominal pain, change in bowel habits, change in stool character, cramping, diarrhea, nausea, vomiting. Absent: hematemesis, hematochezia, melena Genitourinary: Absent: dysuria, hematuria Musculoskeletal: Present: muscle weakness Integumentary: Absent: rash, wounds Neurological: Absent: dizziness, focal weakness Psychiatric: Present: as per HPI Hematologic/Lymphatic: Present: as per HPI Oncology - Exam - Constitutional General appearance: cooperative, no acute distress, thin, no febrile - Head Head exam: Present: atraumatic - ENT ENT exam: Present: mucous membranes moist, normal oropharynx - Respiratory Respiratory exam: Present: CTAB. Absent: respiratory distress - Cardiovascular Cardiovascular exam: Present: RRR - GI/Abdominal GI/Abdominal exam: Present: normal bowel sounds, soft, tenderness (diffuse tenderness). Absent: guarding, rebound - Extremities Exam Extremities exam: Present: normal inspection. Absent: calf tenderness - Neurological Exam Neurological exam: Present: alert, oriented X3, no focal deficits, strengths equal and symetr throughout - Psychiatric Psychiatric exam: Present: normal affect, normal mood - Skin Skin exam: Present: dry, intact, pallor, warm Consult Discharge Plan - Plan Referrals: Brianna Bojorquez MD [Primary Care Provider] - Inpatient Charges Provider: Dr. Marko Tillman <[email or web address] - Last Filed: 01/21/19 16:47> Date of Encounter: 01/21/19 - Data of Consult Requesting Physician: Benedicto Louis Primary Care Provider: Brianna Bojorquez - Attending Attestation PAtient with [facility] on idealisib (on hold), with episodes of diarrhea since . Reports green color to stool, several episodes daily and with cramps associated with BM only. ANC is nl. On cipro/flagyl, clears, will hold idealisib, add steroids if there is no clinical improvement. Culture data is pending. C Tabd findings stable diffuse colon thickening I examined this patient and my medical decision-making was reviewed with the Advanced Practice Nurse, Taylor Wright. I agree with the documented findings, disposition and treatment plan as described except to the extent set forth below. Inpatient Charges Provider: Dr. Marko Tillman Consult - Inpatient: [id number]
--- NOTE | 2019-01-21 16:37 | Internal Med Progress Note ---
Hospitalist Progress Note - Encounter Date of Encounter: 01/21/19 Time of Encounter: 16:34 - Subjective Interval History: Pt states his N/V is improved and that he was able to take clears yesterday. Abd pain is controlled on pain meds. However, he is still having diarrhea. Wants to increase his diet today and agrees that his goal is to maintain PO hydration and he plans to so he can leave soon. Denies CP, SOB, leg swelling. - Exam Vitals: Temp Pulse Resp BP Pulse Ox 98.5 F 89 16 106/69 93 01/21/19 11:51 01/21/19 11:51 01/21/19 11:51 01/21/19 11:51 01/21/19 11:51 Exam: General: NAD, good eye contact, appears chronically ill and older than stated age Thoracic: Normal breath sounds b/l, no wheezing or crackles Cardio: Normal S1 and S2, regular rate and rhythm Abdomen: Soft, nontender, nondistended, no rebound Extremities: Warm, well perfused. DP pulses 2+ b/l. No edema. Skin: Intact. No rashes, bruises, or ulcers Neuro: Awake, fully oriented. Speech fluent - Summary of Assessment and Plan Summary of Assessment and Plan: Chris Angeles is a 58 M w hx COPD, sarcoma, renal cell carcinoma, and follicular lymphoma currently on chemo, who p/w abd pain, N/V/D, and inability to PO, with CT abd showing colitis, concerning for infectious or inflammatory colitis. Acute Colitis: presumed infectious due to immunocompromise 2/2 malignancy on chemo, however could be caused by chemo itself. N/V improving. C diff negative. - convert to cipro/flagyl po - advance to full liquid diet - d/c MIVF - holding chemo - oncology consult, appreciate rec's Follicular lymphoma: hx two other solid malignancies in past. F/w Dr Sosa, on bactrim ppx, holding chemo, onc consult as above COPD: home inhalers PPx: lovenox FEN: full liquids, no MIVF Lines: PIV Consults: Onc Code: DNRCC-A DNI Dispo: patient requires inpatient eval and management at this time. Anticipate 1-2 days. Will be homegoing Internal Medicine: Result - Labs CBC & Chem 7: 01/21/19 08:23 01/21/19 08:23 Labs: Short CBC 01/21/19 Range/Units 08:23 WBC 7.2 (4.3-11.1) K/mcL Hgb 12.3 L (12.9-16.9) g/dL Hct 36.4 L (37.5-50.1) % Plt Count 261 (140-400) K/mcL BMP 01/21/19 08:23 Sodium 135 L Potassium 4.2 Chloride 101 Carbon Dioxide 28 BUN 6 Creatinine 0.64 L Glucose 98 Calcium 8.0 L Consult Discharge Plan - Plan Referrals: Brianna Bojorquez MD [Primary Care Provider] -
[2019-01-21] MEDS: *HR* Morphine Sulfate SR (12 HR) 15 MG TABLET.ER PO SCH (17:27)
[2019-01-21] MEDS: *HR* OxyCODONE/APAP 10/325 TABLET PO PRN (20:20)
[2019-01-21] MEDS: Ondansetron 4 MG/2 ML VIAL IVP PRN (20:23)
[2019-01-21] MEDS: clonazePAM 0.5 MG TABLET PO SCH (22:28)
[2019-01-22] MEDS: Ringers Solution, Lactated 1,000 ML IVC SCH (02:16)
[2019-01-22] MEDS: *HR* Morphine Sulfate SR (12 HR) 15 MG TABLET.ER PO SCH (06:20)
[2019-01-22] MEDS: *HR* Enoxaparin 40 MG/0.4 ML SYRINGE SQ SCH (06:21)
[2019-01-22 06:25] VITALS: BP 110/68
[2019-01-22] MEDS: *HR* OxyCODONE/APAP 10/325 TABLET PO PRN (06:25)
[2019-01-22] MEDS: Ondansetron 4 MG/2 ML VIAL IVP PRN (06:25)
[2019-01-22 06:49] LABS: Hematocrit 35.6 % (37.5-50.1); Hemoglobin 11.9 g/dL (12.9-16.9); Mean Corpuscular HGB Conc 33.4 g/dL (31.6-35.5); Mean Corpuscular Volume 98.6 fL (83.0-100.0); Mean Platelet Volume 8.9 fL (9.4-12.4); Platelet Count 259 K/mcL (140-400); Red Blood Count 3.61 M/mcL (4.19-5.50); Red Cell Distribution Width 12.5 % (11.5-14.5)
[2019-01-22 07:34] LABS: BUN/Creatinine Ratio 12 (6-26); Blood Urea Nitrogen 7 mg/dL (6-20); Calcium 7.8 mg/dL (8.6-10.3); Carbon Dioxide 26 mEq/L (23-29); Chloride 100 mEq/L (98-107); Glucose 107 mg/dL (70-105); Magnesium 1.6 mg/dL (1.6-2.6); Osmolality,Calculated 276 (280-300); Potassium 4.2 mEq/L (3.5-5.1); Sodium 134 mEq/L (136-145); eGFR For Non-African Americans > 60 (> 60)
[2019-01-22] MEDS: Tiotropium 18 MCG inhalation IH SCH (08:07)
[2019-01-22] MEDS: metroNIDAZOLE 500 MG TABLET PO SCH (08:08)
[2019-01-22] MEDS: Sulfamethoxazole/Trimeth DS 1 EACH TABLET PO SCH (08:08)
[2019-01-22] MEDS: Nicotine 21 MG PATCH.TD24 TD SCH (08:08)
--- NOTE | 2019-01-22 08:47 | Discharge Summary ---
- NOTES TO OUTPATIENT PROVIDER Notes to Outpatient Provider: Colitis from either chemo or infectious, discharged on cipro/flagyl to outpt follow up Date of Encounter: 01/22/19 Time of Encounter: 08:46 Hospital course: Dear Doctors, I recently had the opportunity to care for this patient during their recent hospital stay at [facility]. Chris Angeles is a 58 M w hx COPD, sarcoma, renal cell carcinoma, and follicular lymphoma currently on chemo, who presented at time of admission with abdominal pain, N/V/D, and inability to PO. In the ED, CT abd showing colitis, concerning for infectious or inflammatory colitis. In the hospital, pt hydrated w IV fluids and started on IV cipro/flagyl. Oral chemo Idelalisib was held. Infectious stool studies negative. Pt's symptoms improved and by day of discharge he was tolerated full liquid diet. Still having some diarrhea but no more N/V or abd pain. Will hold chemo until outpatient Onc follow up. Dx: acute colitis (presumed infectious but could be 2/2 chemo) Pertinent tests/consults: Oncology consult Follow up: Onc 1 week, PCP as needed Tests pending: none Med changes: - new cipro 500 bid, last dose 01/28 - new flagyl 500 tid, last dose 01/28 - hold home idelalisib 150 bid until outpt Onc f/u Mental status: awake, fully oriented Code status: DNRCC-A DNI Time spent on discharge: 25 minutes It has been my pleasure participating in this patient's care. Please contact me with any questions or concerns regarding their hospital stay. Sincerely, Benedicto Louis MD - Discharge Medications Prescriptions: New Ciprofloxacin [Cipro] 500 mg PO BID #12 tablet metroNIDAZOLE [Flagyl] 500 mg PO TID #18 tablet Continued Oxycodone HCl/Acetaminophen [Percocet 10-325 mg Tablet] 1 tab PO TID PRN PRN Reason: Pain Albuterol Sulfate [Albuterol Inhaler] 2 puff IH QID Sildenafil Citrate [Viagra] 100 mg PO DAILY PRN PRN Reason: Erectile Dysfunction Ondansetron HCl 4 mg PO Q6H PRN PRN Reason: Nausea Prochlorperazine Maleate [Compazine] 10 mg PO Q6HR PRN #30 tablet PRN Reason: Nausea Cyanocobalamin (Vitamin B-12) [Vitamin B12] 1,000 mcg PO DAILY #30 tab Folic Acid 1 mg PO DAILY #30 tablet Sulfamethoxazole/Trimeth DS [Bactrim Ds] 1 each PO DAILY #30 tablet Idelalisib [Zydelig] 150 mg PO BID #60 tablet clonazePAM [Clonazepam] 1 mg PO HS Morphine Sulfate [Arymo ER] 30 mg PO BID Home Medications: Albuterol Sulfate [Albuterol Inhaler] 2 puff IH QID 04/16/15 [History] Oxycodone HCl/Acetaminophen [Percocet 10-325 mg Tablet] 1 tab PO TID PRN 04/16/15 [History] Sildenafil Citrate [Viagra] 100 mg PO DAILY PRN 10/18/16 [History] Ondansetron HCl 4 mg PO Q6H PRN 12/27/16 [History] Prochlorperazine Maleate [Compazine] 10 mg PO Q6HR PRN #30 tablet 10/06/17 [Rx] Cyanocobalamin (Vitamin B-12) [Vitamin B12] 1,000 mcg PO DAILY #30 tab 08/17/18 [Rx] Folic Acid 1 mg PO DAILY #30 tablet 08/17/18 [Rx] Sulfamethoxazole/Trimeth DS [Bactrim Ds] 1 each PO DAILY #30 tablet 12/11/18 [Rx] Idelalisib [Zydelig] 150 mg PO BID #60 tablet 01/16/19 [Rx] Morphine Sulfate [Arymo ER] 30 mg PO BID 01/19/19 [History] clonazePAM [Clonazepam] 1 mg PO HS 01/19/19 [History] Ciprofloxacin [Cipro] 500 mg PO BID #12 tablet 01/22/19 [Rx] metroNIDAZOLE [Flagyl] 500 mg PO TID #18 tablet 01/22/19 [Rx] Allergies/Adverse Reactions: Allergy/AdvReac Type Severity Reaction Status Date / Time Penicillins Allergy Severe Swelling Verified 01/19/19 13:25 of Lip/Tongue/Throat Date of admission: 01/19/19 14:27 Primary care physician: Brianna Bojorquez Consults: 01/20/19 12:33 Consult to Oncology [CONS] Routine Consulting Provider: On[facility] Reason for Consult: N/V/D in chemo patient Call Completed: No - Constitutional Vitals: Temp Pulse Resp BP Pulse Ox 98.5 F 109 16 110/68 93 01/22/19 06:20 01/22/19 06:20 01/22/19 08:13 01/22/19 06:20 01/22/19 08:13 Exam: General: NAD, good eye contact, appears chronically ill and older than stated age Thoracic: Normal breath sounds b/l, no wheezing or crackles Cardio: Normal S1 and S2, regular rate and rhythm Abdomen: Soft, nontender, nondistended Extremities: Warm, well perfused. DP pulses 2+ b/l. No edema. Skin: Intact. No rashes, bruises, or ulcers Neuro: Awake, fully oriented. Speech fluent - Patient Status Disposition: Home, Self-Care Condition: Fair Functional capacity at discharge: independent ambulation Overall status at discharge: patient is progressing back to baseline - Discharge Instructions Follow Up With: Brianna Bojorquez MD [Primary Care Provider] - Berenice Sosa MD [Partnered Physician] - (1 week) Additional Instructions: Hold oral chemo (idelalisib) until outpatient follow up with Oncologist Follow-up appointments: If there is not an appointment listed below, please call your physician and schedule a follow-up appointment. If you have congestive heart failure and your symptoms return, make an appointment with your physician. Medication List: Carry an up to date list of medications you are taking at all time. We have given you an updated medication list including any new medications that you have been prescribed. Please provide that list to your primary provider Symptoms: If your condition changes or you experience any of the following symptoms, notify your physician immediately: Unusual or worsening pain, fever, persistent nausea and vomiting, bleeding, increase in swelling (especially in your legs), sudden weight gain, extreme dizziness, chest pain, increased drainage or redness from a wound or incision. Go to the emergency department if you experience a problem with breathing. Weights: If you have a history of swelling or shortness of breath, weigh yourself daily and notify your physician if you have a weight gain of two or more pounds in one day or 5 or more pounds in a week. If you experience any of the warning signs for stroke: Sudden numbness or weakness of the face, arm or leg; especially on one side of the body, sudden confusion, trouble speaking or understanding, sudden trouble seeing in one or both eyes, sudden trouble walking, dizziness, loss of balance or coordination, sudden sever headache with no cause; Call 911 or go to the emergency room. Stroke is a medical emergency. Some risk factors for stroke: Age, cigarette smoking, diabetes, excessive alcohol consumption, family history, high blood pressure, overweight, physical inactivity, prior stroke, heart attack, diagnosis of carotid artery stenosis or other artery disease. If you smoke, STOP: Smoking or tobacco use significantly increases your risk of heart and lung disease. Your chance of disease greatly increases if you continue to smoke. For more information, call the [place] tobacco quit line for smoking cessation 2-301-KWCZ-NOW ( ) - Diet and Activity Activity: resume usual activities as tolerated Diet: advance to your usual diet
== END 2019-01-22 10:07 | disposition home or self-care (01) ==
LOC: 3ANU 10:06 → EMEROOARM 10:06 → SUATTDRO 14:27 → 3ANU 15:16
PROVIDERS: ADMIT Internal Medicine; ATTEND Internal Medicine

== ENCOUNTER 2019-02-04 15:32 | Inpatient (IN) ==
--- NOTE | 2019-02-04 15:39 | Emergency Department Note ---
Disposition Clinical Impression: Multifocal pneumonia Disposition: Admitted As Inpatient Condition: Fair Time of Disposition: 22:38 General Adult HPI - General Stated complaint: Low O2 Sats Time Seen by Provider: 02/04/19 15:34 - Related Data Home Medications Medication Instructions Recorded Confirmed Albuterol Sulfate [Albuterol 2 puff IH QID 04/16/15 01/30/19 Inhaler] Oxycodone HCl/Acetaminophen 1 tab PO TID PRN 04/16/15 01/30/19 [Percocet 10-325 mg Tablet] Sildenafil Citrate [Viagra] 100 mg PO DAILY PRN 10/18/16 01/30/19 Ondansetron HCl 4 mg PO Q6H PRN 12/27/16 01/30/19 clonazePAM [Clonazepam] 1 mg PO HS 01/19/19 01/30/19 Previous Rx's Medication Instructions Recorded Prochlorperazine Maleate 10 mg PO Q6HR PRN #30 tablet 10/06/17 [Compazine] Cyanocobalamin (Vitamin B-12) 1,000 mcg PO DAILY #30 tab 08/17/18 [Vitamin B12] Folic Acid 1 mg PO DAILY #30 tablet 08/17/18 Ciprofloxacin [Cipro] 500 mg PO BID #12 tablet 01/22/19 metroNIDAZOLE [Flagyl] 500 mg PO TID #18 tablet 01/22/19 Ondansetron ODT [Zofran ODT] 4 mg SL Q6HR #20 tab.rapdis 01/23/19 Promethazine [Phenergan] 1 tab PO Q6HR PRN #30 tablet 01/23/19 predniSONE [PredniSONE] 20 mg PO AD #35 tablet 01/23/19 Allergies Allergy/AdvReac Type Severity Reaction Status Date / Time Penicillins Allergy Severe Swelling Verified 01/30/19 14:44 of Lip/Tongue/Throat morphine Allergy Rash Verified 01/30/19 14:44 Past Medical History - Past Medical History Medical history: Reports: cancer, COPD, hyperlipidemia, other Surgical history: Reports: tonsillectomy Psychiatric history: Reports: depression - Social History Smoking Status: Current every day smoker Smokeless Tobacco Status: No Alcohol use: Reports: none Drug use: Reports: none Course Vital Signs Respiratory Rate 12 02/04/19 15:50 O2 Sat by Pulse Oximetry 92 02/04/19 15:50 Temperature 99.4 F 02/04/19 15:51 Pulse Rate 101 02/04/19 19:00 Respiratory Rate 18 02/04/19 19:00 Blood Pressure 108/63 02/04/19 19:00 O2 Sat by Pulse Oximetry 93 02/04/19 19:00 Oxygen Delivery Oxygen Delivery Nasal Cannula Medical Decision Making - Lab Data Result diagrams: 02/04/19 15:44 02/04/19 15:44 Lab Results 02/04/19 02/04/19 02/04/19 Range/Units 15:44 15:44 15:44 WBC 23.5 H (4.3-11.1) K/mcL RBC 3.24 L (4.19-5.50) M/mcL Hgb 10.8 L (12.9-16.9) g/dL Hct 33.3 L (37.5-50.1) % MCV 102.8 H (83.0-100.0) fL MCH 33.3 (28.0-33.3) pg MCHC 32.4 (31.6-35.5) g/dL RDW 13.5 (11.5-14.5) % Plt Count 210 (140-400) K/mcL MPV 8.9 L (9.4-12.4) fL Immature Gran % 1.5 (0-4) % Seg Neutrophils % 89.9 % Lymphocytes % 7.0 % Monocytes % 1.3 % Eosinophils % 0.2 % Basophils % 0.1 % Neutrophils # 21.1 H (1.6-8.9) K/mcL Lymphocytes # 1.7 (0.6-4.6) K/mcL Monocytes # 0.3 (0.0-1.3) K/mcL Eosinophils # 0.1 (0.0-0.6) K/mcL Basophils # 0.0 (0.0-0.2) K/mcL Platelet Estimate Normal (Normal) PT 17.6 H (9.4-12.1) Seconds INR 1.6 ABG pH (7.32-7.45) pH Units ABG pCO2 (35-45) mmHg ABG pO2 (85-104) mmHg ABG HCO3 (21-27) mEq/L ABG Total CO2 (20-26) mEq/L ABG O2 Saturation (95-98) % ABG Base Excess (-2 to 3) mEq/L O2 Delivery Device Inspired O2 (1-15=lpm [id number]=%) Sodium 139 (136-145) mEq/L Potassium 3.9 (3.5-5.1) mEq/L Chloride 97 L (98-107) mEq/L Carbon Dioxide 33 H (23-29) mEq/L BUN 19 (6-20) mg/dL Creatinine 0.86 (0.70-1.30) mg/dL Est GFR ( Amer) > 60 (> 60) Est GFR (Non-Af Amer) > 60 (> 60) BUN/Creatinine Ratio 22 (6-26) Glucose 140 H (70-105) mg/dL Calculated Osmolality 293 (280-300) Lactic Acid (0.5-2.2) mmol/L Calcium 8.1 L (8.6-10.3) mg/dL Magnesium 2.0 (1.6-2.6) mg/dL Total Bilirubin 0.4 (0.3-1.0) mg/dL AST 11 L (13-39) Units/L ALT 12 (7-52) Units/L Alkaline Phosphatase 57 (34-104) Units/L Troponin I (< 0.04) ng/mL B-Natriuretic Peptide (Less than 100) pg/mL Serum Total Protein 5.4 L (6.4-8.9) g/dL Albumin 2.8 L (3.5-5.7) g/dL Globulin 2.6 (2.4-3.5) g/dL Albumin/Globulin Ratio 1.1 (1.1-2.2) Procalcitonin (0.00-0.15) ng/mL Urine Color (Yellow) Urine Clarity (Clear) Urine pH (5.0-8.0) pH Units Ur Specific [place] (1.010-1.025) Urine Protein (Neg-Trace) mg/dL Urine Glucose (UA) (Normal) mg/dL Urine Ketones (Negative) mg/dL Urine Blood (Negative) Urine Nitrite (Negative) Urine Bilirubin (Negative) Urine Urobilinogen (Normal) mg/dL Ur Leukocyte Esterase (Negative) Urine Microscopic RBC (0-3) per hpf Urine Microscopic WBC (0-3) per hpf Ur Squamous Epith Cells (None-Few) per lpf Urine Bacteria (None-Few) per hpf Hyaline Casts (None-Few) per lpf Ur Culture Indicated? (NO) 02/04/19 02/04/19 02/04/19 Range/Units 15:44 15:44 15:49 WBC (4.3-11.1) K/mcL RBC (4.19-5.50) M/mcL Hgb (12.9-16.9) g/dL Hct (37.5-50.1) % MCV (83.0-100.0) fL MCH (28.0-33.3) pg MCHC (31.6-35.5) g/dL RDW (11.5-14.5) % Plt Count (140-400) K/mcL MPV (9.4-12.4) fL Immature Gran % (0-4) % Seg Neutrophils % % Lymphocytes % % Monocytes % % Eosinophils % % Basophils % % Neutrophils # (1.6-8.9) K/mcL Lymphocytes # (0.6-4.6) K/mcL Monocytes # (0.0-1.3) K/mcL Eosinophils # (0.0-0.6) K/mcL Basophils # (0.0-0.2) K/mcL Platelet Estimate (Normal) PT (9.4-12.1) Seconds INR ABG pH 7.42 (7.32-7.45) pH Units ABG pCO2 53 H (35-45) mmHg ABG pO2 61 L (85-104) mmHg ABG HCO3 34 H (21-27) mEq/L ABG Total CO2 36 H (20-26) mEq/L ABG O2 Saturation 91 L (95-98) % ABG Base Excess 8 H (-2 to 3) mEq/L O2 Delivery Device BiPAP Inspired O2 35.0 (1-15=lpm [id number]=%) Sodium (136-145) mEq/L Potassium (3.5-5.1) mEq/L Chloride (98-107) mEq/L Carbon Dioxide (23-29) mEq/L BUN (6-20) mg/dL Creatinine (0.70-1.30) mg/dL Est GFR ( Amer) (> 60) Est GFR (Non-Af Amer) (> 60) BUN/Creatinine Ratio (6-26) Glucose (70-105) mg/dL Calculated Osmolality (280-300) Lactic Acid (0.5-2.2) mmol/L Calcium (8.6-10.3) mg/dL Magnesium (1.6-2.6) mg/dL Total Bilirubin (0.3-1.0) mg/dL AST (13-39) Units/L ALT (7-52) Units/L Alkaline Phosphatase (34-104) Units/L Troponin I (< 0.04) ng/mL B-Natriuretic Peptide 899 H (Less than 100) pg/mL Serum Total Protein (6.4-8.9) g/dL Albumin (3.5-5.7) g/dL Globulin (2.4-3.5) g/dL Albumin/Globulin Ratio (1.1-2.2) Procalcitonin 9.23 H (0.00-0.15) ng/mL Urine Color (Yellow) Urine Clarity (Clear) Urine pH (5.0-8.0) pH Units Ur Specific [place] (1.010-1.025) Urine Protein (Neg-Trace) mg/dL Urine Glucose (UA) (Normal) mg/dL Urine Ketones (Negative) mg/dL Urine Blood (Negative) Urine Nitrite (Negative) Urine Bilirubin (Negative) Urine Urobilinogen (Normal) mg/dL Ur Leukocyte Esterase (Negative) Urine Microscopic RBC (0-3) per hpf Urine Microscopic WBC (0-3) per hpf Ur Squamous Epith Cells (None-Few) per lpf Urine Bacteria (None-Few) per hpf Hyaline Casts (None-Few) per lpf Ur Culture Indicated? (NO) 02/04/19 02/04/19 02/04/19 Range/Units 15:57 19:13 20:59 WBC (4.3-11.1) K/mcL RBC (4.19-5.50) M/mcL Hgb (12.9-16.9) g/dL Hct (37.5-50.1) % MCV (83.0-100.0) fL MCH (28.0-33.3) pg MCHC (31.6-35.5) g/dL RDW (11.5-14.5) % Plt Count (140-400) K/mcL MPV (9.4-12.4) fL Immature Gran % (0-4) % Seg Neutrophils % % Lymphocytes % % Monocytes % % Eosinophils % % Basophils % % Neutrophils # (1.6-8.9) K/mcL Lymphocytes # (0.6-4.6) K/mcL Monocytes # (0.0-1.3) K/mcL Eosinophils # (0.0-0.6) K/mcL Basophils # (0.0-0.2) K/mcL Platelet Estimate (Normal) PT (9.4-12.1) Seconds INR ABG pH (7.32-7.45) pH Units ABG pCO2 (35-45) mmHg ABG pO2 (85-104) mmHg ABG HCO3 (21-27) mEq/L ABG Total CO2 (20-26) mEq/L ABG O2 Saturation (95-98) % ABG Base Excess (-2 to 3) mEq/L O2 Delivery Device Inspired O2 (1-15=lpm [id number]=%) Sodium (136-145) mEq/L Potassium (3.5-5.1) mEq/L Chloride (98-107) mEq/L Carbon Dioxide (23-29) mEq/L BUN (6-20) mg/dL Creatinine (0.70-1.30) mg/dL Est GFR ( Amer) (> 60) Est GFR (Non-Af Amer) (> 60) BUN/Creatinine Ratio (6-26) Glucose (70-105) mg/dL Calculated Osmolality (280-300) Lactic Acid 1.8 (0.5-2.2) mmol/L Calcium (8.6-10.3) mg/dL Magnesium (1.6-2.6) mg/dL Total Bilirubin (0.3-1.0) mg/dL AST (13-39) Units/L ALT (7-52) Units/L Alkaline Phosphatase (34-104) Units/L Troponin I 0.06 H* (< 0.04) ng/mL B-Natriuretic Peptide (Less than 100) pg/mL Serum Total Protein (6.4-8.9) g/dL Albumin (3.5-5.7) g/dL Globulin (2.4-3.5) g/dL Albumin/Globulin Ratio (1.1-2.2) Procalcitonin (0.00-0.15) ng/mL Urine Color Dark Yellow (Yellow) Urine Clarity Clear (Clear) Urine pH 6.0 (5.0-8.0) pH Units Ur Specific [place] > 1.030 H (1.010-1.025) Urine Protein 30 H (Neg-Trace) mg/dL Urine Glucose (UA) 250 H (Normal) mg/dL Urine Ketones Trace H (Negative) mg/dL Urine Blood Negative (Negative) Urine Nitrite Positive A (Negative) Urine Bilirubin Small H (Negative) Urine Urobilinogen Normal (Normal) mg/dL Ur Leukocyte Esterase Trace H (Negative) Urine Microscopic RBC 3-5 H (0-3) per hpf Urine Microscopic WBC 0-3 (0-3) per hpf Ur Squamous Epith Cells Many H (None-Few) per lpf Urine Bacteria None Seen (None-Few) per hpf Hyaline Casts Few (None-Few) per lpf Ur Culture Indicated? YES A (NO) Critical Care Time Critical Care Time: Yes Total Critical Care Time: 30 Attestation: The high probability of a clinically significant, sudden or life threatening deterioration of the [] system(s) required my full and direct attention, intervention and personal management. The aggregate critical care time was [] minutes. This time is in addition to time spent performing reported procedures but includes the following: [] Data Review and interpretation [] Patient assessment and monitoring of vital signs [] Documentation [] Medication orders and management Patient was hypoxic requiring BiPAP therapy Attestation Statement - Attestation Attestation: I reviewed the residents documentation and agree with the residents assessment and plan of care. I have personally had face to face time with the patient. (Brief History, Brief Exam, and MDM) I personally supervised and was present for the delatorre/critical portions of the following procedures completed by the resident: (add procedures performed here). [id number] time provided Patient was in the hospital visiting his mother when he became progressively more dyspneic. He has a history of non-oxygen dependent COPD. He is a smoker. He is alert with increased work of breathing upon arrival. Pulse ox was in the 70s prior to ER presentation. He required BiPAP therapy.
[2019-02-04] MEDS ORDERED: Ipratropium/Albuterol Neb 3 ML ONE (15:40)
[2019-02-04] MEDS ORDERED: methylPREDNISolone 125 MG/2 ML VIAL IVP ONE (15:40)
[2019-02-04 15:53] LABS: ABG Base Excess 8 mEq/L (-2 to 3); ABG HCO3 34 mEq/L (21-27); ABG Oxygen Saturation 91 % (95-98); ABG PCO2 53 mmHg (35-45); ABG PH 7.42 pH Units (7.32-7.45); ABG PO2 61 mmHg (85-104); ABG TCO2 36 mEq/L (20-26)
[2019-02-04] MEDS: Ipratropium/Albuterol Neb 3 ML IH ONE ×2 (15:53)
[2019-02-04 16:05] LABS: Basophils % 0.1 %; Eosinophils % 0.2 %; Hematocrit 33.3 % (37.5-50.1); Hemoglobin 10.8 g/dL (12.9-16.9); Immature Granulocytes % 1.5 % (0-4); Lymphocytes # 1.7 K/mcL (0.6-4.6); Mean Corpuscular HGB Conc 32.4 g/dL (31.6-35.5); Mean Corpuscular Hemoglobin 33.3 pg (28.0-33.3); Mean Corpuscular Volume 102.8 fL (83.0-100.0); Mean Platelet Volume 8.9 fL (9.4-12.4); Monocytes # 0.3 K/mcL (0.0-1.3); Monocytes % 1.3 %; Neutrophils # 21.1 K/mcL (1.6-8.9); Platelet Count 210 K/mcL (140-400); Red Blood Count 3.24 M/mcL (4.19-5.50); Red Cell Distribution Width 13.5 % (11.5-14.5); Segmented Neutrophils % 89.9 %
--- NOTE | 2019-02-04 16:05 | Emergency Department Note ---
Disposition Clinical Impression: Multifocal pneumonia Disposition: Admitted As Inpatient Condition: Fair Time of Disposition: 17:46 General Adult HPI - General Stated complaint: Low O2 Sats Time Seen by Provider: 02/04/19 15:34 Source: patient, family Mode of arrival: wheelchair Limitations: altered mental status Nursing Notes Reviewed: Yes Vital Signs Reviewed: Yes - History of Present Illness HPI Narrative: 58-year-old male with a past medical history of emphysema, COPD, active cancer being treated at the cancer center as well as the [facility] [place] [facility]. Patient was visiting his mother up on one of the inpatient floors, and one of the floor nurses took his oxygen saturation and it was noted to be in the 70s. By the time the patient reached triage in the ED his oxygen saturation was in the 50s. Patient was complaining of some subjective fevers and chills, increased sputum production that he complains of being thick, brown. He was placed on BiPAP in order to improve oxygen saturation. Blood pressure was initially 90s over 50s, after he was placed on BiPAP his blood pressure decreased to high 80s over 50s. However after some time on the BiPAP his blood pressure improved back into the 90s over 50s. Patient was started on antibiotics while in the department. - Related Data Home Medications Medication Instructions Recorded Confirmed Albuterol Sulfate [Albuterol 2 puff IH QID 04/16/15 01/30/19 Inhaler] Oxycodone HCl/Acetaminophen 1 tab PO TID PRN 04/16/15 01/30/19 [Percocet 10-325 mg Tablet] Sildenafil Citrate [Viagra] 100 mg PO DAILY PRN 10/18/16 01/30/19 Ondansetron HCl 4 mg PO Q6H PRN 12/27/16 01/30/19 clonazePAM [Clonazepam] 1 mg PO HS 01/19/19 01/30/19 Previous Rx's Medication Instructions Recorded Prochlorperazine Maleate 10 mg PO Q6HR PRN #30 tablet 10/06/17 [Compazine] Cyanocobalamin (Vitamin B-12) 1,000 mcg PO DAILY #30 tab 08/17/18 [Vitamin B12] Folic Acid 1 mg PO DAILY #30 tablet 08/17/18 Ciprofloxacin [Cipro] 500 mg PO BID #12 tablet 01/22/19 metroNIDAZOLE [Flagyl] 500 mg PO TID #18 tablet 01/22/19 Ondansetron ODT [Zofran ODT] 4 mg SL Q6HR #20 tab.rapdis 01/23/19 Promethazine [Phenergan] 1 tab PO Q6HR PRN #30 tablet 01/23/19 predniSONE [PredniSONE] 20 mg PO AD #35 tablet 01/23/19 Allergies Allergy/AdvReac Type Severity Reaction Status Date / Time Penicillins Allergy Severe Swelling Verified 01/30/19 14:44 of Lip/Tongue/Throat morphine Allergy Rash Verified 01/30/19 14:44 Limitations: ROS unobtainable due to patients medical condition Past Medical History - Past Medical History Attestation: Yes The following information was validated with the patient. Medical history: Reports: cancer, COPD, hyperlipidemia, other Surgical history: Reports: tonsillectomy Psychiatric history: Reports: depression - Social History Smoking Status: Current every day smoker Smokeless Tobacco Status: No Alcohol use: Reports: none Drug use: Reports: none Physical Exam General: Thin male that appears older than stated age, appears somnolent but arousable. Head: atraumatic, normocephalic. ENT: No conjunctival injection, no scleral icterus. PERRLA. EOMI. Oropharynx non- erythematous. mucous membranes moist. Neuro: No gross focal deficits noted. Pulm: All lung gay have ronchi/rales. Cardio: Tachycardia. Abd: Soft, non-distended. Normoactive bowel sounds. Non-tender to palpation. No guarding. Non rigid. Extremities: Radial pulses 2+ gail, 3+ gail LE pitting edema to level of mid-calf. Posterior tibialis pulses 1+ bilaterally. Skin: warm, dry, intact. No rashes. Psych: Appropriate mood and affect. Answers questions appropriately. Cooperative with exam. Course Vital Signs Respiratory Rate 12 02/04/19 15:50 O2 Sat by Pulse Oximetry 92 02/04/19 15:50 Temperature 99.4 F 02/04/19 15:51 Pulse Rate 99 02/04/19 17:40 Respiratory Rate 22 02/04/19 17:40 Blood Pressure 96/55 02/04/19 17:40 O2 Sat by Pulse Oximetry 95 02/04/19 17:40 Oxygen Delivery Oxygen Delivery Bipap Medical Decision Making - [facility] Narrative Medical decision making narrative: Patient's x-ray is concerning for multifocal pneumonia, additionally patient is saturating in the 92-95% range on BiPAP, he was started on antibiotic therapy while in the department. He was given 3 duo nebs and 1 dose of steroids on the department. It was thought that he would benefit from further inpatient workup and treatment. Patient will be admitted to the hospitalist. Patient was given an opportunity to ask questions at bedside and all of their concerns were addressed. Patient verbalized understanding and agreement with plan of care. Patient's vitals improved during the course of treatment in the ED. - Medical Records Medical records reviewed: Yes I reviewed the patient's medical records. - Lab Data Lab results reviewed: Yes I reviewed the patient's lab results. Result diagrams: 02/04/19 15:44 02/04/19 15:44 Lab Results 02/04/19 02/04/19 02/04/19 Range/Units 15:44 15:44 15:44 WBC 23.5 H (4.3-11.1) K/mcL RBC 3.24 L (4.19-5.50) M/mcL Hgb 10.8 L (12.9-16.9) g/dL Hct 33.3 L (37.5-50.1) % MCV 102.8 H (83.0-100.0) fL MCH 33.3 (28.0-33.3) pg MCHC 32.4 (31.6-35.5) g/dL RDW 13.5 (11.5-14.5) % Plt Count 210 (140-400) K/mcL MPV 8.9 L (9.4-12.4) fL Immature Gran % 1.5 (0-4) % Seg Neutrophils % 89.9 % Lymphocytes % 7.0 % Monocytes % 1.3 % Eosinophils % 0.2 % Basophils % 0.1 % Neutrophils # 21.1 H (1.6-8.9) K/mcL Lymphocytes # 1.7 (0.6-4.6) K/mcL Monocytes # 0.3 (0.0-1.3) K/mcL Eosinophils # 0.1 (0.0-0.6) K/mcL Basophils # 0.0 (0.0-0.2) K/mcL Platelet Estimate Normal (Normal) PT 17.6 H (9.4-12.1) Seconds INR 1.6 ABG pH (7.32-7.45) pH Units ABG pCO2 (35-45) mmHg ABG pO2 (85-104) mmHg ABG HCO3 (21-27) mEq/L ABG Total CO2 (20-26) mEq/L ABG O2 Saturation (95-98) % ABG Base Excess (-2 to 3) mEq/L O2 Delivery Device Inspired O2 (1-15=lpm [id number]=%) Sodium 139 (136-145) mEq/L Potassium 3.9 (3.5-5.1) mEq/L Chloride 97 L (98-107) mEq/L Carbon Dioxide 33 H (23-29) mEq/L BUN 19 (6-20) mg/dL Creatinine 0.86 (0.70-1.30) mg/dL Est GFR ( Amer) > 60 (> 60) Est GFR (Non-Af Amer) > 60 (> 60) BUN/Creatinine Ratio 22 (6-26) Glucose 140 H (70-105) mg/dL Calculated Osmolality 293 (280-300) Lactic Acid (0.5-2.2) mmol/L Calcium 8.1 L (8.6-10.3) mg/dL Magnesium 2.0 (1.6-2.6) mg/dL Total Bilirubin 0.4 (0.3-1.0) mg/dL AST 11 L (13-39) Units/L ALT 12 (7-52) Units/L Alkaline Phosphatase 57 (34-104) Units/L B-Natriuretic Peptide (Less than 100) pg/mL Serum Total Protein 5.4 L (6.4-8.9) g/dL Albumin 2.8 L (3.5-5.7) g/dL Globulin 2.6 (2.4-3.5) g/dL Albumin/Globulin Ratio 1.1 (1.1-2.2) 02/04/19 02/04/19 02/04/19 Range/Units 15:44 15:49 15:57 WBC (4.3-11.1) K/mcL RBC (4.19-5.50) M/mcL Hgb (12.9-16.9) g/dL Hct (37.5-50.1) % MCV (83.0-100.0) fL MCH (28.0-33.3) pg MCHC (31.6-35.5) g/dL RDW (11.5-14.5) % Plt Count (140-400) K/mcL MPV (9.4-12.4) fL Immature Gran % (0-4) % Seg Neutrophils % % Lymphocytes % % Monocytes % % Eosinophils % % Basophils % % Neutrophils # (1.6-8.9) K/mcL Lymphocytes # (0.6-4.6) K/mcL Monocytes # (0.0-1.3) K/mcL Eosinophils # (0.0-0.6) K/mcL Basophils # (0.0-0.2) K/mcL Platelet Estimate (Normal) PT (9.4-12.1) Seconds INR ABG pH 7.42 (7.32-7.45) pH Units ABG pCO2 53 H (35-45) mmHg ABG pO2 61 L (85-104) mmHg ABG HCO3 34 H (21-27) mEq/L ABG Total CO2 36 H (20-26) mEq/L ABG O2 Saturation 91 L (95-98) % ABG Base Excess 8 H (-2 to 3) mEq/L O2 Delivery Device BiPAP Inspired O2 35.0 (1-15=lpm cs14-328=%) Sodium (136-145) mEq/L Potassium (3.5-5.1) mEq/L Chloride (98-107) mEq/L Carbon Dioxide (23-29) mEq/L BUN (6-20) mg/dL Creatinine (0.70-1.30) mg/dL Est GFR ( Amer) (> 60) Est GFR (Non-Af Amer) (> 60) BUN/Creatinine Ratio (6-26) Glucose (70-105) mg/dL Calculated Osmolality (280-300) Lactic Acid 1.8 (0.5-2.2) mmol/L Calcium (8.6-10.3) mg/dL Magnesium (1.6-2.6) mg/dL Total Bilirubin (0.3-1.0) mg/dL AST (13-39) Units/L ALT (7-52) Units/L Alkaline Phosphatase (34-104) Units/L B-Natriuretic Peptide 899 H (Less than 100) pg/mL Serum Total Protein (6.4-8.9) g/dL Albumin (3.5-5.7) g/dL Globulin (2.4-3.5) g/dL Albumin/Globulin Ratio (1.1-2.2) - Radiology Data Radiology results reviewed: Yes I reviewed the patient's radiology results. Chest X-Ray 02/04/19 15:37 IMPRESSION: Multifocal bilateral consolidation has developed. Correlate for signs or symptoms of pneumonia. Left pleural effusion or pleural thickening again noted. D/ / Serge Hoyos MD / Serge Hoyos MD Interpreting Provider: Serge Hoyos MD - EKG Data EKG #1 EKG attestation: Yes I reviewed and interpreted this EKG. EKG results narrative: Heart rate 110, rhythm sinus tachycardia, axis normal. OK 114, QRS 88, QTC 431. Criteria met for LVH. No ST elevation or depression.
[2019-02-04 16:11] LABS: Eosinophils # 0.1 K/mcL (0.0-0.6)
[2019-02-04 16:15] LABS: INR 1.6; Prothrombin Time 17.6 Seconds (9.4-12.1)
[2019-02-04 16:27] LABS: Alanine Aminotransferase 12 Units/L (7-52); Albumin 2.8 g/dL (3.5-5.7); Albumin/Globulin Ratio 1.1 (1.1-2.2); Alkaline Phosphatase 57 Units/L (34-104); Aspartate Amino Transferase 11 Units/L (13-39); BUN/Creatinine Ratio 22 (6-26); Bilirubin,Total 0.4 mg/dL (0.3-1.0); Blood Urea Nitrogen 19 mg/dL (6-20); Calcium 8.1 mg/dL (8.6-10.3); Carbon Dioxide 33 mEq/L (23-29); Chloride 97 mEq/L (98-107); Globulin 2.6 g/dL (2.4-3.5); Glucose 140 mg/dL (70-105); Osmolality,Calculated 293 (280-300); Potassium 3.9 mEq/L (3.5-5.1); Sodium 139 mEq/L (136-145); Total Protein 5.4 g/dL (6.4-8.9); eGFR For Non-African Americans > 60 (> 60)
[2019-02-04] MEDS ORDERED: 0.9 % Sodium Chloride 1,000 ML IVC ONE (16:28)
[2019-02-04] MEDS ORDERED: Levofloxacin 500 MG/100 ML 500 MG/100 ML BAG IVPB ONE (16:33)
[2019-02-04] MEDS ORDERED: Cefepime HCl 1,000 MG in 0.9 % Sodium Chloride Mini Bag 100 ML IVPB ONE ×2 (16:34→17:15)
[2019-02-04 16:49] LABS: Platelet Estimate Normal (Normal)
[2019-02-04] MEDS ORDERED: 0.9 % Sodium Chloride 250 ML ONE (17:18)
--- NOTE | 2019-02-04 17:27 | Internal Med History&Physical ---
Date of Encounter: 02/04/19 Time of Encounter: 17:26 Internal Medicine - H&P: HPI Chief complaint: SOB Admitted From: Emergency Dept History of present illness: Mr. Angeles is a 58 year old male past medical history of non-Hodgkin lymphoma follicular type, sarcoma no active chemoradiation as he had recent abdominal infection and oncologists at [facility] decided to hold treatment but will follow at the end of this month to reevaluate patient, renal cell carcinoma status post unilateral nephrectomy, emphysema, COPD presented to ER with sh ortness of breath, cough increased swelling in lower extremity. Patient was visiting his up on one of the inpatient floors and he felt short of breath . one of the floor nurses took his oxygen saturation and it was noted to be in the 70s therefore patient was directed to come to emergency room. By the time the patient reached triage for the ED his oxygen saturation was in the 50s. In ER patient was found to be tachypneic tachycardic hypoxic with raised white count chest x-ray to focal pneumonia raised BNP with normal lactic acid. Initial treatment with fluid bolus and IV antibiotic is started in the ER while keeping patient on BiPAP. ER physician called on-call hospitalists for the admission with diagnosis of pneumonia, sepsis, shock. I talked to patient and his daughter about aggressive management but they confirmed DNR CCA DNI status. Okay to use vasodepressor if needed. Review of system-fever chills productive yellowish greenish sputum, shortness of breath. Has vomiting diarrhea but slowing down now. Denies headache dizziness loss of consciousness seizure Patient recently got admitted for acute colitis and discharged home 01/22/2019 on Cipro and Flagyl Past Med Surg Social Fam HX - Past Medical History Medical history: cancer, COPD, hyperlipidemia, other Additional medical history: Scarcoma (head and neck), skin cancer, Mass to right lower lobe, heart murmur Psychiatric history: depression - Past Surgical History Surgical History: tonsillectomy Additional surgical history: partial left nephrectomy (for cancer), 3 surgeries on head, 1 on neck, tumor removed from right breast, rods and pins to left leg, left groin biopsy, needle biopsy to right groin - Social History Smoking Status: Current every day smoker Smokeless Tobacco Status: No Alcohol use: none Drug use: none Internal Medicine - H&P: Meds Albuterol Sulfate [Albuterol Inhaler] 2 puff IH QID 04/16/15 [History] Oxycodone HCl/Acetaminophen [Percocet 10-325 mg Tablet] 1 tab PO TID PRN 04/16/15 [History] Sildenafil Citrate [Viagra] 100 mg PO DAILY PRN 10/18/16 [History] Ondansetron HCl 4 mg PO Q6H PRN 12/27/16 [History] Prochlorperazine Maleate [Compazine] 10 mg PO Q6HR PRN #30 tablet 10/06/17 [Rx] Cyanocobalamin (Vitamin B-12) [Vitamin B12] 1,000 mcg PO DAILY #30 tab 08/17/18 [Rx] Folic Acid 1 mg PO DAILY #30 tablet 08/17/18 [Rx] clonazePAM [Clonazepam] 1 mg PO HS 01/19/19 [History] Ciprofloxacin [Cipro] 500 mg PO BID #12 tablet 01/22/19 [Rx] metroNIDAZOLE [Flagyl] 500 mg PO TID #18 tablet 01/22/19 [Rx] Ondansetron ODT [Zofran ODT] 4 mg SL Q6HR #20 tab.rapdis 01/23/19 [Rx] Promethazine [Phenergan] 1 tab PO Q6HR PRN #30 tablet 01/23/19 [Rx] predniSONE [PredniSONE] 20 mg PO AD #35 tablet 01/23/19 [Rx] Allergy/AdvReac Type Severity Reaction Status Date / Time Penicillins Allergy Severe Swelling Verified 01/30/19 14:44 of Lip/Tongue/Throat morphine Allergy Rash Verified 01/30/19 14:44 All Systems PM: A 10-system review of systems was performed and is negative for pertinent findings except as documented above in the HPI. - Constitutional Vitals: Temp Pulse Resp BP Pulse Ox 99.4 F 110 12 87/45 92 02/04/19 15:51 02/04/19 16:23 02/04/19 16:23 02/04/19 16:23 02/04/19 16:23 Exam: General appearance: On BiPAP. Moderate respiratory distress. Daughter at bedside. Cachectic male. Getting out of breath when trying to speak Head exam: Atraumatic Eye exam: EOMI, PERRLA ENT exam: Moist oral mucosa Neck nontender, supple Respiratory exam: Bilateral expiratory wheezing with questionable fine crackles on left side with decreased breath sound. Cardiovascular exam: Tachycardia with regular rhythm, no systolic murmur Abdominal exam: Soft, nontender, nondistended, positive bowel sounds Extremities exam: No calf tenderness, +2 pedal edema Present: Skin-no rash, warm, dry, intact Neurological exam: Alert, awake, oriented 3, CN II-XII intact, no focal def icits. No facial droop. Internal Med - H&P Results - Labs CBC & Chem 7: 02/04/19 15:44 02/04/19 15:44 Labs: Short CBC 02/04/19 Range/Units 15:44 WBC 23.5 H (4.3-11.1) K/mcL Hgb 10.8 L (12.9-16.9) g/dL Hct 33.3 L (37.5-50.1) % Plt Count 210 (140-400) K/mcL Neutrophils # 21.1 H (1.6-8.9) K/mcL BMP 02/04/19 15:44 Sodium 139 Potassium 3.9 Chloride 97 L Carbon Dioxide 33 H BUN 19 Creatinine 0.86 Glucose 140 H Calcium 8.1 L Liver Function 02/04/19 Range/Units 15:44 Total Bilirubin 0.4 (0.3-1.0) mg/dL AST 11 L (13-39) Units/L ALT 12 (7-52) Units/L Alkaline Phosphatase 57 (34-104) Units/L Albumin 2.8 L (3.5-5.7) g/dL - ABG Interpretation ABG results: 02/04/19 15:49 ABG pH 7.42 ABG pCO2 53 H ABG pO2 61 L ABG HCO3 34 H ABG Total CO2 36 H ABG O2 Saturation 91 L ABG Base Excess 8 H - Impressions ITS Impressions Chest X-Ray 02/04/19 15:37 IMPRESSION: Multifocal bilateral consolidation has developed. Correlate for signs or symptoms of pneumonia. Left pleural effusion or pleural thickening again noted. D/ / Serge Hoyos MD / Serge Hoyos MD Interpreting Provider: Serge Hoyos MD - Assessment and Plan (1) Acute respiratory failure with hypoxia Current Visit: Yes Status: Acute Assessment and plan: Multifactorial -Most likely due to underlying pneumonia, COPD exacerbation and possible CHF exacerbation. Treat underlying cause. BiPAP. Oxygen supplementation. ABG. Will consult steward/stewardess banquet if needed. Will keep patient in ICU (2) Sepsis Current Visit: Yes Status: Acute Assessment and plan: Patient was found to be tachypnea, tachycardia, hypoxic with increased leukocytosis but normal lactic acid. Most likely underlying pneumonia contributing. Broader spectrum antibiotic started vancomycin cefepime in the ER. Blood culture, urine culture. IV fluid bolus given in the ER. Sepsis p rotocol Qualifiers: Sepsis type: sepsis due to unspecified organism Qualified Code(s): A41.9 - Sepsis, unspecified organism (3) Multifocal pneumonia Current Visit: Yes Status: Acute Assessment and plan: Possible hospital acquired at patient had recent hospitalization. Clinical symptom cough fever shortness of breath hypoxia crackles in lungs and chest x- ray finding. Continue broader spectrum antibiotic, DuoNeb BiPAP oxygen supplementation. Will consult steward/stewardess banquet if needed Respiratory panel ordered Urine antigen for Legionella and Streptococcus ordered Sputum culture ordered. (4) COPD exacerbation Current Visit: Yes Status: Acute Assessment and plan: Contributing above most likely. Wheezing bilaterally. Solu-Medrol loading dose given in the ER. Will continue Solu-Medrol 40 mg IV every 6 hours along with DuoNeb, BiPAP, oxygen supplementation. Spirometry (5) Leukocytosis Current Visit: Yes Status: Acute Assessment and plan: Raised white count. Patient is in sepsis most likely due to underlying pneumonia. Blood culture urine culture. Continue broader spectrum antibiotic. Monitor CBC Qualifiers: Leukocytosis type: unspecified Qualified Code(s): D72.829 - Elevated white blood cell count, unspecified (6) Follicular lymphoma Current Visit: No Status: Acute Assessment and plan: Grade 3. Following with [facility] onc[facility] center [facility]. Had recent visit with oncologists last to make further plan about chemotherapy treatment-it was advised to patient to get recover from acute infection and will reevaluate patient at the end of this month whether he is appropriate candidate to tolerate chemotherapy. Patient has intolerance to chemotherapy ended up having colitis infection. 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 Continue as above. Fluid boluses in progress as ordered by ER physician. If no response then will consider vasodepressor. (9) CHF exacerbation Current Visit: Yes Status: Acute Assessment and plan: Possible. Patient has some crackles with raised BNP and pedal edema. Will order troponin and echocardiogram. He may need diuresis but also getting IV fluid bolus in the ER as per sepsis protocol that can make him worse. Close monitoring of fluid boluses diuresis. 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 Willing to talk palliative care eventually. Will consult palliative care possibly tomorrow. (12) DVT prophylaxis Current Visit: No Status: Acute Assessment and plan: SCDs, heparin - Time Spent With Patient Total time spent is greater than 50% in coordination of care (as documented) at patient's floor/unit and/or counseling patient:
[2019-02-04] MEDS ORDERED: Naloxone 0.4 MG/ML INJ IVP PRN (17:59)
[2019-02-04] MEDS ORDERED: Vancomycin (wt based) 1,000 MG VIAL IVPB SCH (18:00)
[2019-02-04] MEDS ORDERED: Ketorolac 15 MG/ML VIAL IVP ONE (18:24)
[2019-02-04 21:11] LABS: Bilirubin,Urine Small (Negative); Blood,Urine Negative (Negative); Clarity,Urine Clear (Clear); Color,Urine Dark Yellow (Yellow); Glucose,Urine (UA) 250 mg/dL (Normal); Ketones,Urine Trace mg/dL (Negative); Leukocyte Esterase,Urine Trace (Negative); Nitrite,Urine Positive (Negative); Protein,Urine 30 mg/dL (Neg-Trace); Specific Gravity,Urine > 1.030 (1.010-1.025); Urobilinogen,Urine Normal (Normal)
[2019-02-04 21:12] LABS: Bacteria,Urine None Seen per hpf (None-Few); Hyaline Casts,Urine Few per lpf (None-Few); Squamous Epithelial Cell,Urine Many per lpf (None-Few); WBC,Urine 0-3 per hpf (0-3)
[2019-02-04] MEDS: Ipratropium/Albuterol Neb 3 ML IH SCH (23:58)
[2019-02-05] MEDS ORDERED: clonazePAM 0.5 MG TABLET PO SCH (00:45)
[2019-02-05] MEDS: *HR* OxyCODONE Immed Rel 15 MG TABLET PO PRN ×5 (01:17→22:02)
[2019-02-05] MEDS: 0.9 % Sodium Chloride 1,000 ML IVC SCH ×2 (01:18→18:03)
[2019-02-05] MEDS: MethylPREDNISolone 40 MG/ML VIAL IVP SCH ×4 (01:25→18:03)
[2019-02-05] MEDS: Cefepime HCl 2,000 MG in Water for inj. (sterile) 20 ML 20 ML IVP SCH ×3 (01:25→18:02)
[2019-02-05] MEDS: Nicotine 21 MG PATCH.TD24 TD SCH ×2 (01:33→11:56)
[2019-02-05 02:35] LABS: Basophils % 0.1 %; Hematocrit 30.9 % (37.5-50.1); Hemoglobin 9.9 g/dL (12.9-16.9); Immature Granulocytes % 0.8 % (0-4); Lymphocytes # 0.4 K/mcL (0.6-4.6); Lymphocytes % 2.2 %; Mean Corpuscular Hemoglobin 33.1 pg (28.0-33.3); Mean Corpuscular Volume 103.3 fL (83.0-100.0); Mean Platelet Volume 9.1 fL (9.4-12.4); Monocytes # 0.1 K/mcL (0.0-1.3); Monocytes % 0.6 %; Neutrophils # 18.7 K/mcL (1.6-8.9); Platelet Count 191 K/mcL (140-400); Red Blood Count 2.99 M/mcL (4.19-5.50); Red Cell Distribution Width 13.7 % (11.5-14.5); Segmented Neutrophils % 96.3 %
[2019-02-05 02:54] LABS: BUN/Creatinine Ratio 29 (6-26); Blood Urea Nitrogen 22 mg/dL (6-20); Carbon Dioxide 27 mEq/L (23-29); Chloride 99 mEq/L (98-107); Glucose 220 mg/dL (70-105); Osmolality,Calculated 296 (280-300); Potassium 4.4 mEq/L (3.5-5.1); Sodium 138 mEq/L (136-145); eGFR For Non-African Americans > 60 (> 60)
[2019-02-05] MEDS: Ipratropium/Albuterol Neb 3 ML IH SCH ×4 (03:44→22:17)
[2019-02-05] MEDS ORDERED: *HR* OxyCODONE/APAP 10/325 TABLET PO ONE (05:09)
[2019-02-05] MEDS: *HR* Heparin 5,000 UNIT/ML VIAL SQ SCH ×2 (05:26→18:01)
[2019-02-05] MEDS ORDERED: Aminoglycoside Consult 1 EACH MC ONE (08:40)
--- NOTE | 2019-02-05 09:45 | Electrocardiograph Report ---
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
--- NOTE | 2019-02-05 10:22 | Internal Med Progress Note ---
Hospitalist Progress Note - Encounter Date of Encounter: 02/05/19 Time of Encounter: 10:22 - Subjective Interval History: Slight improvement in shortness of breath. Was on BiPAP in the night then weaning down to high flow oxygen. Daughter at bedside. Review the lab and vitals Denies fever chills vomiting headache dizziness chest pain. Patient has chronic abdominal pain-stable, chronic diarrhea slowing down. - Exam Vitals: Temp Pulse Resp BP Pulse Ox 97.7 F 85 20 107/62 94 02/05/19 07:22 02/05/19 07:55 02/05/19 07:55 02/05/19 07:22 02/05/19 07:55 Exam: General appearance: On a flow oxygen. Is still mild respiratory distress especially at the end of completing the sentence. Daughter at bedside. Cachectic male. Head exam: Atraumatic Eye exam: EOMI, PERRLA ENT exam: Moist oral mucosa Neck nontender, supple Respiratory exam: Decreased breath sound with Bilateral expiratory wheezing Cardiovascular exam: Regular rate with regular rhythm, no systolic murmur Abdominal exam: Soft, mild diffuse tenderness-since last collitis, nondistended, positive bowel sounds Extremities exam: No calf tenderness, +1/2 pedal edema Present: Skin-no rash, warm, dry, intact Neurological exam: Alert, awake, oriented 3, CN II-XII intact, no focal def icits. No facial droop. - Assessment and Plan (1) Acute respiratory failure with hypoxia Current Visit: Yes Status: Acute Assessment and Plan: Multifactorial -Most likely due to underlying pneumonia, COPD exacerbation . Treat underlying cause. BiPAP when necessary. Oxygen supplementation. Improving but is still need close monitoring. Will consult boat joiner if needed (2) Sepsis Current Visit: Yes Status: Acute Assessment and Plan: Patient was found to be tachypnea, tachycardia, hypoxic with increased leukocytosis but normal lactic acid. Most likely underlying pneumonia contri buting. Broader spectrum antibiotic started vancomycin cefepime in the ER. Blood culture, urine culture. IV fluid bolus given in the ER. Sepsis protocol MRSA screen negative therefore stopped vancomycin (3) Multifocal pneumonia Current Visit: Yes Status: Acute Assessment and Plan: Possible hospital acquired at patient had recent hospitalization. Clinical symptom cough fever shortness of breath hypoxia and chest x-ray finding. Continue broader spectrum antibiotic, DuoNeb BiPAP oxygen supplementation. Respiratory panel Urine antigen for Legionella and Streptococcus negative. Sputum culture ordered. (4) COPD exacerbation Current Visit: Yes Status: Acute Assessment and Plan: Contributing above most likely. Wheezing bilaterally-better. Solu-Medrol loading dose given in the ER. Will decrease Solu-Medrol 40 mg IV every 8 hours along with DuoNeb, BiPAP, oxygen supplementation. BiPAP when necessary. Spirometry (5) Leukocytosis Current Visit: Yes Status: Acute Assessment and Plan: Raised white count-now trending down. Patient is in sepsis most likely due to underlying pneumonia. Blood culture urine culture-no growth yet. Continue broader spectrum antibiotic. Monitor CBC (6) Follicular lymphoma Current Visit: No Status: Acute Assessment and Plan: Grade 3. Following with [facility] oncology center at [place]. Had recent visit with oncologists last to make further plan about chemotherapy treatment-it was advised to patient to get recover from acute infection and will reevaluate patient at the end of this month whether he is appropriate candidate to tolerate chemotherapy. Patient has intolerance to chemotherapy ended up having colitis infection. 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 as above. Fluid boluses given by ER physician. Improving blood pressure (9) CHF exacerbation Current Visit: Yes Status: Acute Assessment and Plan: Possible. raised BNP and pedal edema. Raised troponin but trending down possible demand ischemia due to sepsis. Echocardiogram ordered and waiting for the reports . Needs clinical judgment for IV fluid versus diuresis . 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 Willing to talk palliative care therefore consulted palliative care team-I talked to them. As per their talk daughter inclined to of for comfort care but patient wants some time to think. Spent more than 35 minute inpatient care and communication (12) DVT prophylaxis Current Visit: No Status: Acute Assessment and Plan: SCDs, heparin - Time Spent with Patient Total time spent is greater than 50% in coordination of care (as documented) at patient's floor/unit and/or counseling patient: Greater than 35 minutes Internal Medicine: Result - Labs CBC & Chem 7: 02/05/19 01:53 02/05/19 01:53 Labs: Short CBC 02/04/19 02/05/19 Range/Units 15:44 01:53 WBC 23.5 H 19.4 H (4.3-11.1) K/mcL Hgb 10.8 L 9.9 L (12.9-16.9) g/dL Hct 33.3 L 30.9 L (37.5-50.1) % Plt Count 210 191 (140-400) K/mcL Neutrophils # 21.1 H 18.7 H (1.6-8.9) K/mcL BMP 02/04/19 02/05/19 15:44 01:53 Sodium 139 138 Potassium 3.9 4.4 Chloride 97 L 99 Carbon Dioxide 33 H 27 BUN 19 22 H Creatinine 0.86 0.75 Glucose 140 H 220 H Calcium 8.1 L 8.0 L Cardiac Enzymes 02/04/19 02/05/19 Range/Units 19:13 01:53 Troponin I 0.06 H* 0.04 H* (< 0.04) ng/mL Liver Function 02/04/19 Range/Units 15:44 Total Bilirubin 0.4 (0.3-1.0) mg/dL AST 11 L (13-39) Units/L ALT 12 (7-52) Units/L Alkaline Phosphatase 57 (34-104) Units/L Albumin 2.8 L (3.5-5.7) g/dL Urine 02/04/19 Range/Units 20:59 Urine Color Dark Yellow (Yellow) Urine Clarity Clear (Clear) Urine pH 6.0 (5.0-8.0) pH Units Ur Specific [place] > 1.030 H (1.010-1.025) Urine Protein 30 H (Neg-Trace) mg/dL Urine Glucose (UA) 250 H (Normal) mg/dL - ABG Interpretation ABG results: ABG ABG pH 7.42 pH Units (7.32-7.45) 02/04/19 15:49 ABG pCO2 53 mmHg (35-45) H 02/04/19 15:49 ABG pO2 61 mmHg (85-104) L 02/04/19 15:49 ABG O2 Saturation 91 % (95-98) L 02/04/19 15:49 PT/INR, D-dimer PT 17.6 Seconds (9.4-12.1) H 02/04/19 15:44 - Impressions Impressions Chest X-Ray 02/04/19 15:37 IMPRESSION: Multifocal bilateral consolidation has developed. Correlate for signs or symptoms of pneumonia. Left pleural effusion or pleural thickening again noted. D/ / Serge Hoyos MD / Serge Hoyos MD Interpreting Provider: Serge Hoyos MD Consult Discharge Plan - Plan Referrals: Brianna Bojorquez MD [Partnered Physician] - 02/15/19 10:45 am (2) Sepsis Qualifiers: Sepsis type: sepsis due to unspecified organism Qualified Code(s): A41.9 - Sepsis, unspecified organism (5) Leukocytosis Qualifiers: Leukocytosis type: unspecified Qualified Code(s): D72.829 - Elevated white blood cell count, unspecified (6) Follicular lymphoma Qualifiers: Follicular lymphoma grade: grade II Lymphoma site: axillary Qualified Code(s): C82.14 - Follicular lymphoma grade II, lymph nodes of axilla and upper limb (9) CHF exacerbation Qualifiers: Heart failure type: unspecified Qualified Code(s): I50.9 - Heart failure, unspecified
[2019-02-05] MEDS: clonazePAM 0.5 MG TABLET PO PRN ×2 (12:01→19:42)
[2019-02-05] MEDS ORDERED: *HR* FentaNYL PATCH 75 MCG PATCH TD SCH (12:30)
--- NOTE | 2019-02-05 16:38 | Palliative - Consult Note ---
Date of Encounter: 02/05/19 Time of Encounter: 11:30 - Assessment and Plan (1) Cancer associated pain Current Visit: Yes Status: Acute Assessment and plan: Patient and daughter Tamiko at bedside with concerns regarding his pain m anagement over the past 2-3 months. State pain has worsened and not managed well. States that he was originally started on MS Contin,, however, had hives/rash and this was discontinued. Stated that they started Fentanyl patch at lowest dose, and would not increased this, so this was discontinued, and they tried to order Oxycontin, which insurance initially would not approve, and no one filed appropriate documentation to get insurance approval. He has been using Oxycodone 30mg every 4 hours around the clock, and using Percocet 10/325 every 6 hours for breakthrough pain. Utilizing 220 mg Oxycodone/24 hours, equivalent to 330mg Oral morphine equivalents. Discussed at length, patient would like to try Fentanyl patch for extended release. Allowing for cross tolerance, will reduce dose by 50% and begin patch at 75mcg. He is somewhat cachexic, absorption may be issue. Will monitor and titrate as needed. D/W Dr. Gomes. (2) Anxiety Current Visit: Yes Status: Acute Assessment and plan: Continue Clonazepam as he takes at home. Has not had since admission, however, pt was not aware that this was on his medication record and he had to ask for it. Educated him to ask for this if needed. (3) Goals of care, counseling/discussion Current Visit: Yes Status: Acute Assessment and plan: Patient's mother is his primary power of criminal defense attorney, however, she is currently an inpt here, and is currently iin dialysis. Alternate POA is daughter Tamiko, who is present in room. Patient is alert and oriented. Discussion regarding goals of care, patient is unsure at this point if he wants to continue cancer treatment. Appears disease continue to progress. He is feeling the burden of constant trips, increased pain, not feeling well. Discussed and gave information, that if he does not want further cancer treatment, he would qualify for hospice care. D/S pt/daughter at length. Patient wants to thinks about this for a while, daughter would like him to consider transition to comfort care, as he has endured a lot of treatment. Code status remains DNR/DNI for now and will see again in am to continue conversation. (4) Follicular lymphoma Current Visit: No Status: Acute Qualifiers: Follicular lymphoma grade: grade II Lymphoma site: axillary Qualified Code(s): C82.14 - Follicular lymphoma grade II, lymph nodes of axilla and upper limb (5) Palliative care encounter Current Visit: Yes Status: Acute (6) Acute respiratory failure with hypoxia Current Visit: Yes Status: Acute (7) Multifocal pneumonia Current Visit: Yes Status: Acute Assessment and plan: Continue tx with IV atb. (8) COPD (chronic obstructive pulmonary disease) Current Visit: No Status: Acute Assessment and plan: Receiving supportive oxygen, nebs, IV steroids. Qualifiers: COPD type: emphysema Emphysema type: unspecified Qualified Code(s): J43.9 - Emphysema, unspecified Palliative-CN HPI - Data of Consult Requesting Physician: Gail Noble Primary Care Provider: PCP NONE - Consult Narrative History of present illness: Mr. Angeles is a 58 year old male who presented to ER with shortness of breath and cough. Patient was hypoxic at home, and was here visiting his mother who is an inpatient. Saturation were checked by floor nurse, found hypoxic, and he was directed to ER. . He has history of Follicular lymphoma, renal cell carcinoma s/p nephrectomy, sarcoma, and has had treatments at the [facility] as well as here at [place]. Also has history of COPD/emphysema. Imaging on admission demonstrated pneumonia, and he was tachypneic, and tachycardic. Fluid bolus/IV atb were started in ED. Upon my visit, pt is up in chair with daughter and brother at bedside. He denies pain at present. Dyspnea on any exertion. He has had fever chills at home, productive cough, shortness of breath. Code status is currently DNR/DNI. CC: Gail Noble - Time Spent with Patient Time: Total time spent is greater than 50% in coordination of care (as documented) at patient's floor/unit and/or counseling patient: Past Med Surg Social Fam HX - Past Medical History Medical history: cancer, COPD, hyperlipidemia, other Additional medical history: Scarcoma (head and neck), skin cancer, Mass to right lower lobe, heart murmur Psychiatric history: depression - Past Surgical History Surgical History: tonsillectomy Additional surgical history: partial left nephrectomy (for cancer), 3 surgeries on head, 1 on neck, tumor removed from right breast, rods and pins to left leg, left groin biopsy, needle biopsy to right groin - Social History Smoking Status: Current every day smoker Packs per day: 1 Smokeless Tobacco Status: No Alcohol use: none Drug use: none Medications and Allergies Albuterol Sulfate [Albuterol Inhaler] 2 puff IH QID 04/16/15 [History] Oxycodone HCl/Acetaminophen [Percocet 10-325 mg Tablet] 1 tab PO TID PRN 04/16/15 [History] Prochlorperazine Maleate [Compazine] 10 mg PO Q6HR PRN #30 tablet 10/06/17 [Rx] clonazePAM [Clonazepam] 1 mg PO HS 01/19/19 [History] Promethazine [Phenergan] 1 tab PO Q6HR PRN #30 tablet 01/23/19 [Rx] Ondansetron HCl [Zofran] 4 mg PO Q6HR PRN 02/05/19 [History] Allergy/AdvReac Type Severity Reaction Status Date / Time Penicillins Allergy Severe Swelling Verified 01/30/19 14:44 of Lip/Tongue/Throat morphine Allergy Rash Verified 01/30/19 14:44 All systems: reviewed and no additional remarkable complaints except as stated (back pain, pain "all over", shortness of breath with exertion, poor appetite, weight loss, difficulty urinating at times.) Palliative Care-Exam - Constitutional Vitals: Temp Pulse Resp BP Pulse Ox 97.7 F 85 18 107/62 90 02/05/19 07:22 02/05/19 07:55 02/05/19 15:21 02/05/19 07:22 02/05/19 15:21 General appearance: Present: no acute distress, thin - Respiratory Additional comments: Breath sounds diminished with coarse exp wheezes throughout - Cardiovascular Cardiovascular exam: Present: +S1, +S2 - GI/Abdominal Exam GI/Abdominal exam: Present: normal bowel sounds, soft - Extremities Exam Extremities exam: Present: normal capillary refill, normal inspection - Neurological Exam Neurological exam: Present: alert, oriented X3, strengths equal and symetr throughout - Skin Skin exam: Present: dry, pallor, warm Internal Medicine - CN: Reslt - Labs CBC & Chem 7: 02/05/19 01:53 02/05/19 01:53 Labs: Short CBC 02/04/19 02/05/19 Range/Units 15:44 01:53 WBC 19.4 H (4.3-11.1) K/mcL Hgb 9.9 L (12.9-16.9) g/dL Hct 30.9 L (37.5-50.1) % Plt Count 191 (140-400) K/mcL Neutrophils # 21.1 H 18.7 H (1.6-8.9) K/mcL BMP 02/05/19 01:53 Sodium 138 Potassium 4.4 Chloride 99 Carbon Dioxide 27 BUN 22 H Creatinine 0.75 Glucose 220 H Calcium 8.0 L Cardiac Enzymes 02/04/19 02/05/19 Range/Units 19:13 01:53 Troponin I 0.06 H* 0.04 H* (< 0.04) ng/mL Urine 02/04/19 Range/Units 20:59 Urine Color Dark Yellow (Yellow) Urine Clarity Clear (Clear) Urine pH 6.0 (5.0-8.0) pH Units Ur Specific [place] > 1.030 H (1.010-1.025) Urine Protein 30 H (Neg-Trace) mg/dL Urine Glucose (UA) 250 H (Normal) mg/dL - ABG Interpretation ABG results: ABG ABG pH 7.42 pH Units (7.32-7.45) 02/04/19 15:49 ABG pCO2 53 mmHg (35-45) H 02/04/19 15:49 ABG pO2 61 mmHg (85-104) L 02/04/19 15:49 ABG O2 Saturation 91 % (95-98) L 02/04/19 15:49 PT/INR, D-dimer PT 17.6 Seconds (9.4-12.1) H 02/04/19 15:44 - Impressions Impressions Echocardiogram 02/05/19 14:00 Impressions: LVEF 65%. Normal LV chamber size, wall thickness and function. Normal left ventricular diastolic function. Normal right ventricular structure and function. Mild tricuspid regurgitation.Mild pulmonic regurgitation. Mild pulmonary hypertension.Estimated RVSP is 42 mmHg. Left Ventricular Wall Motion: Rest Echo Findings All wall segments showed normal motion. Findings: Study Quality * Technically adequate exam. ECG Findings * Normal sinus rhythm. Left Ventricle * LVEF 65%. * Normal LV chamber size, wall thickness and function. * Normal left ventricular diastolic function. Right Ventricle * Normal right ventricular structure and function. Left Atrium * Normal left atrial size. Right Atrium * Normal right atrial size. Aortic Valve * Trileaflet aortic valve. * Normal aortic valve structure. * No aortic regurgitation. * No aortic stenosis. Mitral Valve * Normal mitral valve structure. * No mitral regurgitation. * No mitral stenosis. Tricuspid Valve * Normal tricuspid valve structure. * No tricuspid stenosis. * Mild tricuspid regurgitation.Mild pulmonic regurgitation. * Mild pulmonary hypertension.Estimated RVSP is 42 mmHg. * Estimated RA pressure is 5 mmHg. * Pulmonic Valve * Aorta * Normally sized aortic root. Pericardium * The pericardium appears normal. IVC * Normal IVC dimensions and inspiratory collapse. Pulmonary Artery * Normal visualized portions of the main pulmonary artery. Consult Discharge Plan - Plan Referrals: Brianna Bojorquez MD [Partnered Physician] - 02/15/19 10:45 am Palliative Quality Palliative Quality: Screen for Code Status: Yes, Screen for Goals of Care: Yes, Screen for Pain: Yes, If Pain Regimen Started, Initiate Bowel Regimen: Yes, Screen for Nausea/Vomitting: Yes Code Status: 02/04/19 17:59 Resuscitation Status: Active [RES] Routine Comment: Resuscitation Status: [id number] Palliative Scale - Palliative Performance Scale How ambulatory is this patient?: Reduced What is patient's level of activity and evidence of disease?: Unable normal job/work, Significant disease How much self-care assistance does patient require?: Occasional assistance necessary How much oral intake does the patient have?: Normal or reduced What is this patient's level of consciousness?: Full Palliative Performance Score: 70 %
[2019-02-05] MEDS: Levofloxacin 750 MG/150 ML 750 MG/150 ML BAG IVPB SCH (18:09)
[2019-02-06] MEDS: MethylPREDNISolone 40 MG/ML VIAL IVP SCH ×4 (00:35→23:37)
[2019-02-06] MEDS: Cefepime HCl 2,000 MG in Water for inj. (sterile) 20 ML 20 ML IVP SCH ×4 (00:35→23:37)
[2019-02-06] MEDS ORDERED: *HR* OxyCODONE/APAP 10/325 TABLET PO ONE ×2 (00:42→10:23)
[2019-02-06] MEDS: *HR* OxyCODONE Immed Rel 15 MG TABLET PO PRN ×5 (03:23→20:17)
[2019-02-06] MEDS: Ipratropium/Albuterol Neb 3 ML IH SCH ×4 (04:06→21:50)
[2019-02-06 06:23] LABS: Adenovirus Not Detected (Not Detect); Coronavirus 229E Not Detected (Not Detect); Coronavirus HKU1 Not Detected (Not Detect); Coronavirus NL63 Not Detected (Not Detect); Coronavirus OC43 Not Detected (Not Detect); Human Metapneumovirus Not Detected (Not Detect); Human Rhinovirus/Enterovirus Not Detected (Not Detect)
[2019-02-06 06:24] LABS: Bordetella Pertussis Not Detected (Not Detect); Chlamydophila pneumoniae Not Detected (Not Detect); Influenza A Subtype 2009 H1 Not Detected (Not Detect); Influenza A Untypeable Not Detected (Not Detect); Influenza B Not Detected (Not Detect); Mycoplasma pneumoniae Not Detected (Not Detect); Parainfluenza Virus 1 Not Detected (Not Detect); Parainfluenza Virus 2 Not Detected (Not Detect); Parainfluenza Virus 3 Not Detected (Not Detect); Parainfluenza Virus 4 Not Detected (Not Detect); Respiratory Syncytial Virus Not Detected (Not Detect)
[2019-02-06] MEDS: *HR* Heparin 5,000 UNIT/ML VIAL SQ SCH ×2 (06:48→18:27)
[2019-02-06] MEDS: clonazePAM 0.5 MG TABLET PO PRN ×2 (06:52→20:16)
--- NOTE | 2019-02-06 07:47 | Internal Med Progress Note ---
Hospitalist Progress Note - Encounter Date of Encounter: 02/06/19 Time of Encounter: 08:00 - Subjective Interval History: No acute events overnight. WBC trending down - Exam Vitals: Temp Pulse Resp BP Pulse Ox 97.6 F 95 18 117/75 95 02/06/19 07:15 02/06/19 07:34 02/06/19 07:15 02/06/19 07:15 02/06/19 07:15 Exam: General appearance: On a flow oxygen. Is still mild respiratory distress especially at the end of completing the sentence. Daughter at bedside. Ca chectic male. Head exam: Atraumatic Eye exam: EOMI, PERRLA ENT exam: Moist oral mucosa Neck nontender, supple Respiratory exam: Decreased breath sound with Bilateral expiratory wheezing Cardiovascular exam: Regular rate with regular rhythm, no systolic murmur Abdominal exam: Soft, mild diffuse tenderness-since last collitis, nondistended, positive bowel sounds Extremities exam: No calf tenderness, +1/2 pedal edema Present: Skin-no rash, warm, dry, intact Neurological exam: Alert, awake, oriented 3, CN II-XII intact, no focal deficits. No facial droop. - Assessment and Plan (1) Acute respiratory failure with hypoxia Current Visit: Yes Status: Acute Assessment and Plan: Multifactorial -Most likely due to underlying pneumonia, COPD exacerbation . Treat underlying cause. BiPAP when necessary. Oxygen supplementation. Continue antibiotics with cefepime and levaquin (2) Multifocal pneumonia Current Visit: Yes Status: Acute Assessment and Plan: Possible hospital acquired at patient had recent hospitalization. Clinical symptom cough fever shortness of breath hypoxia and chest x-ray finding. Continue broad spectrum antibiotic, DuoNeb BiPAP oxygen supplementation. Urine antigen for Legionella and Streptococcus negative. Sputum culture ordered. (3) COPD exacerbation Current Visit: Yes Status: Acute Assessment and Plan: Contributing above most likely. Wheezing bilaterally-better. Solu-Medrol loading dose given in the ER. Continue on nebs,steroids and antibiotics (4) Sarcoma of head and neck Current Visit: Yes Status: Acute Assessment and Plan: Following oncologists (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 Current Visit: Yes Status: Acute Assessment and Plan: Status post nephrectomy (6) Follicular lymphoma Current Visit: Yes Status: Acute Assessment and Plan: Grade 3. Following with [facility] at [place]. Had recent visit with oncologists last to make further plan about chemotherapy treatment-it was advised to patient to get recover from acute infection and will reevaluate patient at the end of this month whether he is appropriate candidate to tolerate chemotherapy. Patient has intolerance to chemotherapy ended up having colitis infection. Will consult oncology if needed to make long-term care plan especially after stabilizing the patient (7) Leukocytosis Current Visit: Yes Status: Acute Assessment and Plan: Raised white count-now trending down. Patient is in sepsis most likely due to underlying pneumonia. Blood culture urine culture-no growth yet. Continue broad spectrum antibiotic. Monitor CBC (8) Sepsis Current Visit: Yes Status: Acute Assessment and Plan: Patient was found to be tachypnea, tachycardia, hypoxic with increased leukocytosis but normal lactic acid. Most likely underlying pneumonia contributing. Broader spectrum antibiotic started vancomycin cefepime in the ER. Blood culture, urine culture. IV fluid bolus given in the ER. Sepsis protocol MRSA screen negative therefore stopped vancomycin (9) Goals of care, counseling/discussion Current Visit: Yes Status: Acute Assessment and Plan: CODE STATUS DNR CCA DNI-confirmed by patient and daughter. Willing to talk palliative care therefore consulted palliative care team-I talked to them. As per their talk daughter inclined to of for comfort care but patient wants some time to think. Spent more than 35 minute inpatient care and communication (10) DVT prophylaxis Current Visit: No Status: Acute Assessment and Plan: SCDs, heparin - Time Spent with Patient Total time spent is greater than 50% in coordination of care (as documented) at patient's floor/unit and/or counseling patient: Internal Medicine: Result - Labs CBC & Chem 7: 02/06/19 07:13 02/06/19 07:13 - ABG Interpretation ABG results: ABG ABG pH 7.42 pH Units (7.32-7.45) 02/04/19 15:49 ABG pCO2 53 mmHg (35-45) H 02/04/19 15:49 ABG pO2 61 mmHg (85-104) L 02/04/19 15:49 ABG O2 Saturation 91 % (95-98) L 02/04/19 15:49 PT/INR, D-dimer PT 17.6 Seconds (9.4-12.1) H 02/04/19 15:44 - Impressions Impressions Echocardiogram 02/05/19 14:00 Impressions: LVEF 65%. Normal LV chamber size, wall thickness and function. Normal left ventricular diastolic function. Normal right ventricular structure and function. Mild tricuspid regurgitation.Mild pulmonic regurgitation. Mild pulmonary hypertension.Estimated RVSP is 42 mmHg. Left Ventricular Wall Motion: Rest Echo Findings All wall segments showed normal motion. Findings: Study Quality * Technically adequate exam. ECG Findings * Normal sinus rhythm. Left Ventricle * LVEF 65%. * Normal LV chamber size, wall thickness and function. * Normal left ventricular diastolic function. Right Ventricle * Normal right ventricular structure and function. Left Atrium * Normal left atrial size. Right Atrium * Normal right atrial size. Aortic Valve * Trileaflet aortic valve. * Normal aortic valve structure. * No aortic regurgitation. * No aortic stenosis. Mitral Valve * Normal mitral valve structure. * No mitral regurgitation. * No mitral stenosis. Tricuspid Valve * Normal tricuspid valve structure. * No tricuspid stenosis. * Mild tricuspid regurgitation.Mild pulmonic regurgitation. * Mild pulmonary hypertension.Estimated RVSP is 42 mmHg. * Estimated RA pressure is 5 mmHg. * Pulmonic Valve * Aorta * Normally sized aortic root. Pericardium * The pericardium appears normal. IVC * Normal IVC dimensions and inspiratory collapse. Pulmonary Artery * Normal visualized portions of the main pulmonary artery. Consult Discharge Plan - Plan Referrals: Brianna Bojorquez MD [Partnered Physician] - 02/15/19 10:45 am (6) Follicular lymphoma Qualifiers: Follicular lymphoma grade: grade II Lymphoma site: axillary Qualified Code(s): C82.14 - Follicular lymphoma grade II, lymph nodes of axilla and upper limb (7) Leukocytosis Qualifiers: Leukocytosis type: unspecified Qualified Code(s): D72.829 - Elevated white blood cell count, unspecified (8) Sepsis Qualifiers: Sepsis type: sepsis due to unspecified organism Qualified Code(s): A41.9 - Sepsis, unspecified organism
[2019-02-06 07:50] LABS: Basophils % 0.1 %; Hematocrit 30.3 % (37.5-50.1); Hemoglobin 9.8 g/dL (12.9-16.9); Immature Granulocytes % 0.6 % (0-4); Lymphocytes # 0.5 K/mcL (0.6-4.6); Mean Corpuscular HGB Conc 32.3 g/dL (31.6-35.5); Mean Corpuscular Hemoglobin 33.3 pg (28.0-33.3); Mean Corpuscular Volume 103.1 fL (83.0-100.0); Mean Platelet Volume 9.1 fL (9.4-12.4); Monocytes # 0.2 K/mcL (0.0-1.3); Monocytes % 0.9 %; Neutrophils # 16.4 K/mcL (1.6-8.9); Nucleated Red Blood Cells 0.1 /100 WBC (0); Platelet Count 184 K/mcL (140-400); Red Blood Count 2.94 M/mcL (4.19-5.50); Red Cell Distribution Width 13.5 % (11.5-14.5); Segmented Neutrophils % 95.4 %
[2019-02-06 08:05] LABS: BUN/Creatinine Ratio 29 (6-26); Blood Urea Nitrogen 17 mg/dL (6-20); Calcium 8.7 mg/dL (8.6-10.3); Carbon Dioxide 29 mEq/L (23-29); Chloride 98 mEq/L (98-107); Glucose 230 mg/dL (70-105); Osmolality,Calculated 289 (280-300); Potassium 4.5 mEq/L (3.5-5.1); Sodium 135 mEq/L (136-145); eGFR For Non-African Americans > 60 (> 60)
[2019-02-06] MEDS: Nicotine 21 MG PATCH.TD24 TD SCH (08:14)
--- NOTE | 2019-02-06 13:36 | Palliative Progress Note ---
Date of Encounter: 02/06/19 Time of Encounter: 13:35 - Assessment and plan (1) Cancer associated pain Current Visit: Yes Status: Acute Assessment and plan: Fentanyl patch was just applied yesterday afternoon. Has received Oxycodone 30mg approx every 3 hours. Will re-eval in am and increase patch at that time if warranted. He does appear quiet drowsy during our conversation. (2) Anxiety Current Visit: Yes Status: Acute Assessment and plan: Continues with Clonazepam PRN. Utilized x2 last 24 hours. (3) Goals of care, counseling/discussion Current Visit: Yes Status: Acute Assessment and plan: Patient still unsure if he desires to continue to cancer treatments, and desires to d/w oncology and his daughter Tamiko. Will f/u in am on this discussion. (4) Follicular lymphoma Current Visit: No Status: Acute Qualifiers: Follicular lymphoma grade: grade II Lymphoma site: axillary Qualified Code(s): C82.14 - Follicular lymphoma grade II, lymph nodes of axilla and upper limb (5) Palliative care encounter Current Visit: Yes Status: Acute (6) Acute respiratory failure with hypoxia Current Visit: Yes Status: Acute (7) Multifocal pneumonia Current Visit: Yes Status: Acute (8) COPD (chronic obstructive pulmonary disease) Current Visit: No Status: Acute Qualifiers: COPD type: emphysema Emphysema type: unspecified Qualified Code(s): J43.9 - Emphysema, unspecified - Time Spent With Patient Total time spent is greater than 50% in coordination of care (as documented) at patient's floor/unit and/or counseling patient: - Subjective Interval history: Patient up in chair. States feeling better today. Primary nurse took him to see his mother that is hospitalized. Still hypoxic with exertion. Leukocytosis improving. Still with significant discomfort, pain level at 5 currently. Did require extra dose Percocet this am. No family present - Constitutional Vitals: Abnormal lab results WBC 17.2 K/mcL (4.3-11.1) H 02/06/19 07:13 RBC 2.94 M/mcL (4.19-5.50) L 02/06/19 07:13 Hgb 9.8 g/dL (12.9-16.9) L 02/06/19 07:13 Hct 30.3 % (37.5-50.1) L 02/06/19 07:13 MCV 103.1 fL (83.0-100.0) H 02/06/19 07:13 MPV 9.1 fL (9.4-12.4) L 02/06/19 07:13 16.4 K/mcL (1.6-8.9) H 02/06/19 07:13 0.5 K/mcL (0.6-4.6) L 02/06/19 07:13 Nucleated RBCs/100 WBC 0.1 /100 WBC (0) H 02/06/19 07:13 PT 17.6 Seconds (9.4-12.1) H 02/04/19 15:44 ABG pCO2 53 mmHg (35-45) H 02/04/19 15:49 ABG pO2 61 mmHg (85-104) L 02/04/19 15:49 ABG HCO3 34 mEq/L (21-27) H 02/04/19 15:49 ABG Total CO2 36 mEq/L (20-26) H 02/04/19 15:49 ABG O2 Saturation 91 % (95-98) L 02/04/19 15:49 ABG Base Excess 8 mEq/L (-2 to 3) H 02/04/19 15:49 Sodium 135 mEq/L (136-145) L 02/06/19 07:13 Chloride 97 mEq/L (98-107) L 02/04/19 15:44 Carbon Dioxide 33 mEq/L (23-29) H 02/04/19 15:44 BUN 22 mg/dL (6-20) H 02/05/19 01:53 0.58 mg/dL (0.70-1.30) L 02/06/19 07:13 29 (6-26) H 02/06/19 07:13 Glucose 230 mg/dL (70-105) H 02/06/19 07:13 Calcium 8.0 mg/dL (8.6-10.3) L 02/05/19 01:53 AST 11 Units/L (13-39) L 02/04/19 15:44 0.04 ng/mL (< 0.04) H* 02/05/19 01:53 B-Natriuretic Peptide 899 pg/mL (Less than 100) H 02/04/19 15:44 5.4 g/dL (6.4-8.9) L 02/04/19 15:44 2.8 g/dL (3.5-5.7) L 02/04/19 15:44 9.23 ng/mL (0.00-0.15) H 02/04/19 15:44 Ur Specific Strandquist > 1.030 (1.010-1.025) H 02/04/19 20:59 30 mg/dL (Neg-Trace) H 02/04/19 20:59 250 mg/dL (Normal) H 02/04/19 20:59 Trace mg/dL (Negative) H 02/04/19 20:59 Positive (Negative) A 02/04/19 20:59 Small (Negative) H 02/04/19 20:59 Ur Leukocyte Esterase Trace (Negative) H 02/04/19 20:59 3-5 per hpf (0-3) H 02/04/19 20:59 Ur Squamous Epith Cells Many per lpf (None-Few) H 02/04/19 20:59 Ur Culture Indicated? YES (NO) A 02/04/19 20:59 General appearance: Present: no acute distress - Cardiovascular Cardiovascular exam: Present: +S1, +S2 - GI/Abdominal GI/Abdominal exam: Present: normal bowel sounds, soft - Extremities Exam Additional comments: 1-2 + bilateral lower extremity edema - Neurological Exam Neurological exam: Present: alert, oriented X3, strengths equal and symetr throughout - Skin Skin exam: Present: dry, pallor, warm Palliative Quality Palliative Quality: Screen for Code Status: Yes, Screen for Goals of Care: Yes, Screen for Pain: Yes, If Pain Regimen Started, Initiate Bowel Regimen: Yes, Screen for Nausea/Vomitting: Yes Code Status: 02/04/19 17:59 Resuscitation Status: Active [RES] Routine Comment: Resuscitation Status: [id number] - Labs CBC & Chem 7: 02/06/19 07:13 02/06/19 07:13 Labs: Laboratory Results - last 24 hr 02/06/19 02/06/19 02/06/19 03:25 07:13 07:13 WBC 17.2 H RBC 2.94 L Hgb 9.8 L Hct 30.3 L MCV 103.1 H MCH 33.3 MCHC 32.3 RDW 13.5 Plt Count 184 MPV 9.1 L Immature Gran % 0.6 Seg Neutrophils % 95.4 Lymphocytes % 3.0 Monocytes % 0.9 Eosinophils % 0.0 Basophils % 0.1 Neutrophils # 16.4 H Lymphocytes # 0.5 L Monocytes # 0.2 Eosinophils # 0.0 Basophils # 0.0 Nucleated RBCs/100 WBC 0.1 H Sodium 135 L Potassium 4.5 Chloride 98 Carbon Dioxide 29 BUN 17 Creatinine 0.58 L Est GFR ( Amer) > 60 Est GFR (Non-Af Amer) > 60 BUN/Creatinine Ratio 29 H Glucose 230 H Calculated Osmolality 289 Calcium 8.7 Chlamy pneumoniae PCR Not Detected Adenovirus (PCR) Not Detected B. pertussis DNA (PCR) Not Detected B.parapertussis DNA PCR Not Detected Coronavirus OC43 (PCR) Not Detected Coronavirus HKU1 (PCR) Not Detected Coronavirus 229E (PCR) Not Detected Coronavirus NL63 (PCR) Not Detected Human Metapneumovir PCR Not Detected Influenza A (H1) PCR Not Detected Influ A (H1N1/09) PCR Not Detected Influenza A (H3) PCR Not Detected Influenza A Untype (PCR) Not Detected Influenza Type B (PCR) Not Detected M.pneumoniae DNA (PCR) Not Detected Parainfluenza 1 (PCR) Not Detected Parainfluenza 2 (PCR) Not Detected Parainfluenza 3 (PCR) Not Detected Parainfluenza 4 (PCR) Not Detected RSV (PCR) Not Detected Entero/Rhino (PCR) Not Detected - Impressions Impressions Echocardiogram 02/05/19 14:00 Impressions: LVEF 65%. Normal LV chamber size, wall thickness and function. Normal left ventricular diastolic function. Normal right ventricular structure and function. Mild tricuspid regurgitation.Mild pulmonic regurgitation. Mild pulmonary hypertension.Estimated RVSP is 42 mmHg. Left Ventricular Wall Motion: Rest Echo Findings All wall segments showed normal motion. Findings: Study Quality * Technically adequate exam. ECG Findings * Normal sinus rhythm. Left Ventricle * LVEF 65%. * Normal LV chamber size, wall thickness and function. * Normal left ventricular diastolic function. Right Ventricle * Normal right ventricular structure and function. Left Atrium * Normal left atrial size. Right Atrium * Normal right atrial size. Aortic Valve * Trileaflet aortic valve. * Normal aortic valve structure. * No aortic regurgitation. * No aortic stenosis. Mitral Valve * Normal mitral valve structure. * No mitral regurgitation. * No mitral stenosis. Tricuspid Valve * Normal tricuspid valve structure. * No tricuspid stenosis. * Mild tricuspid regurgitation.Mild pulmonic regurgitation. * Mild pulmonary hypertension.Estimated RVSP is 42 mmHg. * Estimated RA pressure is 5 mmHg. * Pulmonic Valve * Aorta * Normally sized aortic root. Pericardium * The pericardium appears normal. IVC * Normal IVC dimensions and inspiratory collapse. Pulmonary Artery * Normal visualized portions of the main pulmonary artery. - ABG Interpretation ABG results: ABG ABG pH 7.42 pH Units (7.32-7.45) 02/04/19 15:49 ABG pCO2 53 mmHg (35-45) H 02/04/19 15:49 ABG pO2 61 mmHg (85-104) L 02/04/19 15:49 ABG O2 Saturation 91 % (95-98) L 02/04/19 15:49 PT/INR, D-dimer PT 17.6 Seconds (9.4-12.1) H 02/04/19 15:44 Palliative Scale - Palliative Performance Scale How ambulatory is this patient?: Reduced What is patient's level of activity and evidence of disease?: Unable normal job/work, Significant disease How much self-care assistance does patient require?: Occasional assistance necessary How much oral intake does the patient have?: Normal or reduced What is this patient's level of consciousness?: Full Palliative Performance Score: 70 % Consult Discharge Plan - Plan Referrals: Brianna Bojorquez MD [Partnered Physician] - 02/15/19 10:45 am
--- NOTE | 2019-02-06 15:31 | Oncology Inp Consult Note ---
<Taylor Wright L - Last Filed: 02/06/19 17:14> Date of Encounter: 02/06/19 Time of Encounter: 16:30 Assessment and Plan (1) Colitis Status: Acute Assessment and plan: Secondary to Idelalisib Treated with cipro/flagyl and course of steroids [facility] recommended budesonide Currently treating with solumedrol for COPD exacerbation Symptoms are gradually improving, reports 3-4 loose stools/day currently (2) Follicular lymphoma Status: Acute Assessment and plan: Relapsed follicular lymphoma. He was diagnosed in 2011 and treated with rituximab and received 5 doses of maintenance rituximab. He then relapsed in 2015 and treated with bendamustine and rituximab and went into remission. He then developed B symptoms since June 2018, he was started on Idelaisib in 09/2018. Developed severe colitis for which he was hospitalized locally for 4 days and treated with antibiotics and a course of steroids but he is still symptomatic with diarrhea and abdominal pain. Idelalisib has been on hold since this time. He completed round of steroids. [facility] recommended to start budesonide. Plan: In regards to other treatment options, [facility] recommended to continue to allow recovery time from colitis before reevaluating for the need of therapy for his follicular lymphoma. His options include a clinical trial vs RR. Overall, his colitis symptoms are improving, however, given the prolonged period and severity of symptoms he will likely not be candidate for re-trial of idelalisib This was discussed with patient today, he appears to be interested in pursuing other treatment options which is reasonable once his acute issues resolve If his performance status continues to decline, we would need to re-evaluate goals of care Qualifiers: Follicular lymphoma grade: grade II Lymphoma site: axillary Qualified Code(s): C82.14 - Follicular lymphoma grade II, lymph nodes of axilla and upper limb - Data of Consult Patient: known to practice within the last 3 years Consult date: 02/06/19 Requesting Physician: Gail Noble Primary Care Provider: PCP NONE - Consult Narrative Reason for consult: Follicular Lymphoma History of present illness: Mr. Angeles is a 58 year old male with relapsed follicular lymphoma. He was diagnosed in 2011 and treated with rituximab and received 5 doses of maintenance rituximab. He then relapsed in 2015 and treated with bendamustine and rituximab and went into remission. He then developed B symptoms since June 2018, 30lb weight loss with fatigue and night sweats and found to have progressive lymphadenopathy.Due to B symptoms and night sweats, he was started on Idelaisib in 09/2018. CT abdomen on 01/10/19 showed mild interval decrease in the mediastinal lymphadenopathy. He also developed severe colitis for which he was hospitalized locally for 4 days and treated with antibiotics and a course of steroids but he is still symptomatic with diarrhea and abdominal pain. He was seen at [facility] for second opinion on 01/31/2019 and recommended to start budesonide. If his symptoms persist, he may need to have a colonoscopy to rule out CMV reactivation. CMV PCR was evaluated at [facility] appointment which resulted at normal <50. For his lymphoma, [facility] recommended to continue to allow recovery time from colitis before reevaluating for the need of therapy for his follicular lymphoma. His options include a clinical trial vs RR. Past Med Surg Social Fam HX - Past Medical History Medical history: cancer, COPD, hyperlipidemia, other Additional medical history: Scarcoma (head and neck), skin cancer, Mass to right lower lobe, heart murmur Psychiatric history: depression - Past Surgical History Surgical History: tonsillectomy Additional surgical history: partial left nephrectomy (for cancer), 3 surgeries on head, 1 on neck, tumor removed from right breast, rods and pins to left leg, left groin biopsy, needle biopsy to right groin - Social History Smoking Status: Current every day smoker Packs per day: 1 Smokeless Tobacco Status: No Alcohol use: none Drug use: none Medications and Allergies Albuterol Sulfate [Albuterol Inhaler] 2 puff IH QID 04/16/15 [History] Oxycodone HCl/Acetaminophen [Percocet 10-325 mg Tablet] 1 tab PO TID PRN 04/16/15 [History] Prochlorperazine Maleate [Compazine] 10 mg PO Q6HR PRN #30 tablet 10/06/17 [Rx] clonazePAM [Clonazepam] 1 mg PO HS 01/19/19 [History] Promethazine [Phenergan] 1 tab PO Q6HR PRN #30 tablet 01/23/19 [Rx] Ondansetron HCl [Zofran] 4 mg PO Q6HR PRN 02/05/19 [History] Allergy/AdvReac Type Severity Reaction Status Date / Time Penicillins Allergy Severe Swelling Verified 01/30/19 14:44 of Lip/Tongue/Throat morphine Allergy Rash Verified 01/30/19 14:44 Constitutional: Present: anorexia, fatigue, weight loss. Absent: chills, fever(s) Eyes: Absent: change in vision Nose, mouth and throat: Absent: dysphagia, odynophagia Cardiovascular: Absent: chest pain Respiratory: Present: cough, dyspnea, wheezing Gastrointestinal: Present: diarrhea, loose stools. Absent: abdominal pain, nausea, vomiting Genitourinary: Absent: dysuria Musculoskeletal: Present: muscle weakness Integumentary: Absent: rash, wounds Neurological: Absent: focal weakness Psychiatric: Present: as per HPI Hematologic/Lymphatic: Present: as per HPI Oncology - Exam - Constitutional General appearance: cooperative, no acute distress, no febrile Exam: chronically ill appearing - Head Head exam: Present: atraumatic - ENT ENT exam: Present: mucous membranes moist, normal oropharynx - Respiratory Respiratory exam: Present: decreased breath sounds, wheezes. Absent: respiratory distress - Cardiovascular Cardiovascular exam: Present: RRR - GI/Abdominal GI/Abdominal exam: Present: normal bowel sounds, soft. Absent: tenderness - Extremities Exam Extremities exam: Present: normal inspection. Absent: calf tenderness - Neurological Exam Neurological exam: Present: alert, oriented X3, no focal deficits, strengths equal and symetr throughout - Psychiatric Psychiatric exam: Present: normal affect, normal mood - Skin Skin exam: Present: dry, normal color, warm Consult Discharge Plan - Plan Referrals: Brianna Bojorquez MD [Partnered Physician] - 02/15/19 10:45 am Inpatient Charges [facility] Last Filed: 02/06/19 17:44> Date of Encounter: 02/06/19 - Data of Consult Requesting Physician: Gail Noble Primary Care Provider: PCP NONE Inpatient Charges Provider: Dr. Jg Bolanos Consult - Inpatient: [id number] - Attending Attestation I examined this patient and my medical decision-making was reviewed with the Advanced Practice Nurse. I agree with the documented findings, disposition and treatment plan as described except to the extent set forth below. -Patient with relapsed follicular lymphoma s/p rituxan and BR, and recently started on idelalisib -He has had diarrhea 2/2 colitis from his idelalisib which is slowly resolving now. He states he is having 4-5 BMs per day at this time and previously was having 10+. -He is also being treated for a COPD exacerbation on this admission. -Currently on Solumedrol 40 mg IV q8h. He is on Cefepime/ Levaquin for antibiotic coverage. Would recommend d/c'ing one of the antibiotics. -We discussed treatment options and based on his significant colitis, it may be more prudent so switch him to Lenalidomide/ Rituxan for therapy once he follows up outpatient with us. -Will perform an anemia w/u
[2019-02-06] MEDS: Levofloxacin 750 MG/150 ML 750 MG/150 ML BAG IVPB SCH (18:26)
[2019-02-07] MEDS: *HR* OxyCODONE Immed Rel 15 MG TABLET PO PRN ×2 (02:46→08:04)
[2019-02-07] MEDS: Ipratropium/Albuterol Neb 3 ML IH SCH (03:15)
[2019-02-07] MEDS: *HR* Heparin 5,000 UNIT/ML VIAL SQ SCH (05:06)
[2019-02-07] MEDS: clonazePAM 0.5 MG TABLET PO PRN (05:07)
[2019-02-07 05:48] LABS: Basophils % 0.1 %; Hematocrit 30.4 % (37.5-50.1); Hemoglobin 9.8 g/dL (12.9-16.9); Immature Granulocytes % 0.9 % (0-4); Lymphocytes # 0.5 K/mcL (0.6-4.6); Lymphocytes % 4.2 %; Mean Corpuscular HGB Conc 32.2 g/dL (31.6-35.5); Mean Corpuscular Volume 102.4 fL (83.0-100.0); Mean Platelet Volume 9.1 fL (9.4-12.4); Monocytes # 0.2 K/mcL (0.0-1.3); Monocytes % 1.9 %; Neutrophils # 10.8 K/mcL (1.6-8.9); Nucleated Red Blood Cells 0.3 /100 WBC (0); Platelet Count 153 K/mcL (140-400); Red Blood Count 2.97 M/mcL (4.19-5.50); Red Cell Distribution Width 13.4 % (11.5-14.5); Segmented Neutrophils % 92.9 %
[2019-02-07 06:08] LABS: % Iron Saturation 60 % (20-55); BUN/Creatinine Ratio 41 (6-26); Blood Urea Nitrogen 19 mg/dL (6-20); Calcium 8.1 mg/dL (8.6-10.3); Carbon Dioxide 31 mEq/L (23-29); Chloride 99 mEq/L (98-107); Glucose 199 mg/dL (70-105); Iron 118 mcg/dL (65-175); Lactate Dehydrogenase 228 Units/L (140-271); Osmolality,Calculated 292 (280-300); Potassium 4.4 mEq/L (3.5-5.1); Sodium 137 mEq/L (136-145); Transferrin 141 mg/dL (203-362); eGFR For Non-African Americans > 60 (> 60)
[2019-02-07 06:26] LABS: Ferritin 439 ng/mL (20-250)
[2019-02-07 06:31] LABS: Folate 1.9 ng/mL (3.0-16.0)
[2019-02-07] MEDS: Cefepime HCl 2,000 MG in Water for inj. (sterile) 20 ML 20 ML IVP SCH (08:04)
[2019-02-07] MEDS: MethylPREDNISolone 40 MG/ML VIAL IVP SCH (08:04)
[2019-02-07] MEDS: Nicotine 21 MG PATCH.TD24 TD SCH (08:05)
[2019-02-07 08:21] VITALS: BP 115/75
--- NOTE | 2019-02-07 19:12 | Discharge Summary ---
Orders not resulted at time of discharge: Pending orders 02/04/19 16:02 Culture,Blood [BC] Stat Date of Encounter: 02/07/19 Time of Encounter: 19:00 - Discharge Diagnosis (1) Acute respiratory failure with hypoxia Priority: Primary Status: Acute Assessment and Plan: 58 year old male past medical history of non-Hodgkin lymphoma follicular type, sarcoma no active chemoradiation as he had recent abdominal infection and oncologists at [facility] decided to hold treatment but will follow at the end of this month to reevaluate patient, renal cell carcinoma status post unilateral nephrectomy, emphysema, COPD presented to ER with shortness of breath, cough increased swelling in lower extremity. Patient was visiting his up on one of the inpatient floors and he felt short of breath . one of the floor nurses took his oxygen saturation and it was noted to be in the 70s therefore patient was directed to come to emergency room. By the time the patient reached triage for the ED his oxygen saturation was in the 50s. In ER patient was found to be tachypneic tachycardic hypoxic with raised white count chest x-ray to focal pneumonia raised BNP with normal lactic acid. Initial treatment with fluid bolus and IV antibiotic is started in the ER while keeping patient on BiPAP. ER physician called on-call hospitalists for the admission with diagnosis of pneumonia, sepsis, shock. He was assessed with hypoxic respiratory failure likely Multifactorial -Most likely due to underlying pneumonia and COPD exacerbation . He was treated with BIPAP, antibiotics with levaquin and cefepime and nebs and steroids. He improved on this regimen and signed himself out AMA early this am once he began to feel better today. 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 Priority: Primary Status: Acute (6) Follicular lymphoma Priority: Primary Status: Acute Qualifiers: Follicular lymphoma grade: grade II Lymphoma site: axillary Qualified Code(s): C82.14 - Follicular lymphoma grade II, lymph nodes of axilla and upper limb (7) Leukocytosis Priority: Primary Status: Acute Qualifiers: Leukocytosis type: unspecified Qualified Code(s): D72.829 - Elevated white blood cell count, unspecified (8) Sepsis Priority: Primary Status: Acute Qualifiers: Sepsis type: sepsis due to unspecified organism Qualified Code(s): A41.9 - Sepsis, unspecified organism (9) Goals of care, counseling/discussion Priority: Primary Status: Acute (10) DVT prophylaxis Priority: Primary Status: Acute Hospital course: Mr. Angeles is a 58 year old male - Time Spent with Patient Total time spent providing and/or coordinating discharge services: - Discharge Medications Prescriptions: No Action Oxycodone HCl/Acetaminophen [Percocet 10-325 mg Tablet] 1 tab PO TID PRN PRN Reason: Pain Albuterol Sulfate [Albuterol Inhaler] 2 puff IH QID Prochlorperazine Maleate [Compazine] 10 mg PO Q6HR PRN #30 tablet PRN Reason: Nausea clonazePAM [Clonazepam] 1 mg PO HS Promethazine [Phenergan] 1 tab PO Q6HR PRN #30 tablet PRN Reason: Nausea Ondansetron HCl [Zofran] 4 mg PO Q6HR PRN PRN Reason: Nausea Home Medications: Albuterol Sulfate [Albuterol Inhaler] 2 puff IH QID 04/16/15 [History] Oxycodone HCl/Acetaminophen [Percocet 10-325 mg Tablet] 1 tab PO TID PRN 04/16/15 [History] Prochlorperazine Maleate [Compazine] 10 mg PO Q6HR PRN #30 tablet 10/06/17 [Rx] clonazePAM [Clonazepam] 1 mg PO HS 01/19/19 [History] Promethazine [Phenergan] 1 tab PO Q6HR PRN #30 tablet 01/23/19 [Rx] Ondansetron HCl [Zofran] 4 mg PO Q6HR PRN 02/05/19 [History] Allergies/Adverse Reactions: Allergy/AdvReac Type Severity Reaction Status Date / Time Penicillins Allergy Severe Swelling Verified 01/30/19 14:44 of Lip/Tongue/Throat morphine Allergy Rash Verified 01/30/19 14:44 Date of admission: 02/04/19 23:12 Primary care physician: PCP NONE Consults: 02/04/19 18:06 Consult to Rn Documentation [CONS] Routine Reason for SW Consult: Discharge plan 02/05/19 00:19 Consult to Nutrition [CONS] Routine Comment: Consulting Provider: NUTRITION Reason for Dietary Consult: MST Score 02/05/19 10:22 Consult to Palliative Care [CONS] Routine Comment: Consulting Provider: Palliative Care Kerry Reason for Consult: code discussion Call Completed: Yes 02/06/19 09:13 Consult to Oncology [CONS] Routine Consulting Provider: On[facility] [employer] Reason for Consult: Patient requesting, has lung cx Call Completed: No - Constitutional Vitals: Temp Pulse Resp BP Pulse Ox 98.1 F 87 14 115/75 94 02/07/19 08:14 02/07/19 08:14 02/07/19 08:14 02/07/19 08:14 02/07/19 08:14 Exam: NAD per nurse I was unable to perform a comprehensive physical exam - Patient Status Disposition: Left Against Medical Advice Condition: Fair - Discharge Instructions Follow Up With: Brianna Bojorquez MD [Partnered Physician] - 02/15/19 10:45 am Forms: ED Satisfaction Letter
== END 2019-02-07 08:41 | disposition left against medical advice (07) | DRG 720 ==
LOC: EMEROOARM 15:32 → 2NNU 23:12 → 3ANU 02-06 18:14
PROVIDERS: ADMIT Internal Medicine Nephrology; ATTEND Internal Medicine Nephrology

== ENCOUNTER 2019-02-08 10:40 | Inpatient (IN) ==
[2019-02-08] MEDS ORDERED: Ipratropium/Albuterol Neb 3 ML IH ONE (11:21)
[2019-02-08] MEDS ORDERED: methylPREDNISolone 125 MG/2 ML VIAL IVP ONE (11:21)
[2019-02-08] MEDS ORDERED: Levofloxacin 750 MG/150 ML 750 MG/150 ML BAG IVPB ONE (11:27)
[2019-02-08] MEDS ORDERED: Cefepime HCl 2,000 MG in Water for inj. (sterile) 20 ML 20 ML IVP STA (11:27)
[2019-02-08 11:39] LABS: Basophils % 0.3 %; Eosinophils # 0.1 K/mcL (0.0-0.6); Eosinophils % 0.4 %; Hematocrit 33.1 % (37.5-50.1); Hemoglobin 10.7 g/dL (12.9-16.9); Immature Granulocytes % 1.7 % (0-4); Lymphocytes % 8.7 %; Mean Corpuscular HGB Conc 32.3 g/dL (31.6-35.5); Mean Corpuscular Hemoglobin 32.9 pg (28.0-33.3); Mean Corpuscular Volume 101.8 fL (83.0-100.0); Monocytes # 0.3 K/mcL (0.0-1.3); Monocytes % 2.1 %; Platelet Count 133 K/mcL (140-400); Red Blood Count 3.25 M/mcL (4.19-5.50); Red Cell Distribution Width 13.3 % (11.5-14.5); Segmented Neutrophils % 86.8 %; White Blood Count 11.7 K/mcL (4.3-11.1)
[2019-02-08 11:45] LABS: Prothrombin Time 10.9 Seconds (9.4-12.1)
[2019-02-08 11:48] LABS: Activated Partial Thrombo Time 18.3 Seconds (26.0-36.0)
[2019-02-08] MEDS ORDERED: Isovue-370 500 ML BOTTLE IVP ONE (11:51)
[2019-02-08] MEDS ORDERED: Furosemide 40 MG/4 ML VIAL IVP ONE (11:51)
[2019-02-08 11:55] LABS: Neutrophils # 10.2 K/mcL (1.6-8.9)
[2019-02-08 11:57] LABS: BUN/Creatinine Ratio 39 (6-26); Blood Urea Nitrogen 20 mg/dL (6-20); Calcium 8.4 mg/dL (8.6-10.3); Carbon Dioxide 34 mEq/L (23-29); Chloride 99 mEq/L (98-107); Glucose 119 mg/dL (70-105); Osmolality,Calculated 294 (280-300); Potassium 3.9 mEq/L (3.5-5.1); Sodium 140 mEq/L (136-145); eGFR For African Americans > 60 (> 60); eGFR For Non-African Americans > 60 (> 60)
[2019-02-08 11:58] LABS: Troponin I 0.03 ng/mL (< 0.04)
--- NOTE | 2019-02-08 12:01 | Emergency Department Note ---
Disposition Clinical Impression: Acute exacerbation of chronic obstructive airways disease Disposition: Admitted As Inpatient Condition: Fair Time of Disposition: 12:39 General Adult HPI - General Chief complaint: ED Shortness of Breath/Dyspnea Stated complaint: PAUL MANDEL Patient Time Seen by Provider: 02/08/19 10:47 Source: patient Nursing Notes Reviewed: Yes Vital Signs Reviewed: Yes - History of Present Illness HPI Narrative: 58 yo male presents emergency Department with concerns of difficulty in breathing. Patient states he was recently admitted to the hospital for similar symptoms, he is started on transferred broad-spectrum antibiotics for possible pneumonia as well as being treated as COPD exacerbation. Patient signed out AMA yesterday, return home and has progressively worsened since that time. Patient denies fever however he has had chronic steroids and chemotherapy. Patient was evaluated by palliative care during his most recent stay however he did not commit to hospice or palliative care at that time. Patient has previously followed oncologist at the [facility]. Cancer treatments have been withheld while he was being treated for colitis. Patient presents back today because he feels increasingly fatigued, weak, short of breath. Has not syncopized. Denies hematochezia, melena. He has mild tenderness to palpation of the left lower quadrant during reevaluation. Pain Scale: 9 - Related Data Home Medications Medication Instructions Recorded Confirmed Albuterol Sulfate [Albuterol 2 puff IH QID 04/16/15 02/05/19 Inhaler] Oxycodone HCl/Acetaminophen 1 tab PO TID PRN 04/16/15 02/05/19 [Percocet 10-325 mg Tablet] clonazePAM [Clonazepam] 1 mg PO HS 01/19/19 02/05/19 Ondansetron HCl [Zofran] 4 mg PO Q6HR PRN 02/05/19 02/05/19 Previous Rx's Medication Instructions Recorded Prochlorperazine Maleate 10 mg PO Q6HR PRN #30 tablet 10/06/17 [Compazine] Promethazine [Phenergan] 1 tab PO Q6HR PRN #30 tablet 01/23/19 Allergies Allergy/AdvReac Type Severity Reaction Status Date / Time Penicillins Allergy Severe Swelling Verified 02/08/19 10:44 of Lip/Tongue/Throat morphine Allergy Rash Verified 02/08/19 10:44 All systems ED: reviewed and negative except as stated. Review of Systems: As Per HPI Past Medical History - Past Medical History Attestation: Yes The following information was validated with the patient. Source: patient Medical history: Reports: cancer, COPD, hyperlipidemia, other Surgical history: Reports: tonsillectomy Psychiatric history: Reports: depression - Social History Smoking Status: Current every day smoker Smokeless Tobacco Status: No Alcohol use: Reports: none Drug use: Reports: none Physical Exam General: Alert, in moderate discomfort, cachectic appearing Skin: Warm, dry, intact Head: Normocephalic and atraumatic Neck: Supple, trachea midline and no tenderness Cardiovascular: Tachycardia, normal perfusion, pulses equal in bilateral upper and lower extremities. Respiratory: Severe wheezing the bilateral posterior lung gay with crackles in bilateral bases. Musculoskeletal: Normal strength, no tenderness, swelling or deformity GI: Soft, nontender, nondistended. Bowel sounds present Neuro: Patient awake alert and answering questions and following instructions. Daughter states patient's answers are not entirely correct in that he has been confused. Patient moving all extremities. No focal neurologic deficits noted on exam. - General General appearance: alert Course Vital Signs Temperature 98.3 F 02/08/19 10:44 Pulse Rate 102 02/08/19 10:44 Respiratory Rate 18 02/08/19 10:44 Blood Pressure 125/74 02/08/19 10:44 O2 Sat by Pulse Oximetry 91 02/08/19 10:44 Temperature 98.3 F 02/08/19 17:45 Pulse Rate 110 02/08/19 17:45 Respiratory Rate 20 02/08/19 17:45 Blood Pressure 122/72 02/08/19 17:45 O2 Sat by Pulse Oximetry 92 02/08/19 18:17 Oxygen Delivery Oxygen Delivery Nasal Cannula Medical Decision Making - [facility] Narrative Medical decision making narrative: CTA of the chest did not show evidence of acute PE. Patient will be treated as possible pneumonia versus COPD exacerbation. Patient will be admitted for [facility] care and evaluation. - Medical Records Medical records reviewed: Yes I reviewed the patient's medical records. - Lab Data Lab results reviewed: Yes I reviewed the patient's lab results. Result diagrams: 02/08/19 11:12 02/08/19 11:12 Lab Results 02/08/19 02/08/19 02/08/19 Range/Units 11:12 11:12 11:12 WBC 11.7 H (4.3-11.1) K/mcL RBC 3.25 L (4.19-5.50) M/mcL Hgb 10.7 L (12.9-16.9) g/dL Hct 33.1 L (37.5-50.1) % MCV 101.8 H (83.0-100.0) fL MCH 32.9 (28.0-33.3) pg MCHC 32.3 (31.6-35.5) g/dL RDW 13.3 (11.5-14.5) % Plt Count 133 L (140-400) K/mcL MPV 11.0 (9.4-12.4) fL Immature Gran % 1.7 (0-4) % Seg Neutrophils % 86.8 % Lymphocytes % 8.7 % Monocytes % 2.1 % Eosinophils % 0.4 % Basophils % 0.3 % Neutrophils # 10.2 H (1.6-8.9) K/mcL Lymphocytes # 1.0 (0.6-4.6) K/mcL Monocytes # 0.3 (0.0-1.3) K/mcL Eosinophils # 0.1 (0.0-0.6) K/mcL Basophils # 0.0 (0.0-0.2) K/mcL PT 10.9 (9.4-12.1) Seconds INR 1.0 APTT 18.3 L (26.0-36.0) Seconds D-Dimer 3329 H (0-500) ng/mLFEU Sodium 140 (136-145) mEq/L Potassium 3.9 (3.5-5.1) mEq/L Chloride 99 (98-107) mEq/L Carbon Dioxide 34 H (23-29) mEq/L BUN 20 (6-20) mg/dL Creatinine 0.51 L (0.70-1.30) mg/dL Est GFR ( Amer) > 60 (> 60) Est GFR (Non-Af Amer) > 60 (> 60) BUN/Creatinine Ratio 39 H (6-26) Glucose 119 H (70-105) mg/dL Calculated Osmolality 294 (280-300) Lactic Acid (0.5-2.2) mmol/L Calcium 8.4 L (8.6-10.3) mg/dL Troponin I 0.03 (< 0.04) ng/mL B-Natriuretic Peptide (Less than 100) pg/mL Specimen Rejected 02/08/19 02/08/19 02/08/19 Range/Units 11:12 11:12 12:16 WBC (4.3-11.1) K/mcL RBC (4.19-5.50) M/mcL Hgb (12.9-16.9) g/dL Hct (37.5-50.1) % MCV (83.0-100.0) fL MCH (28.0-33.3) pg MCHC (31.6-35.5) g/dL RDW (11.5-14.5) % Plt Count (140-400) K/mcL MPV (9.4-12.4) fL Immature Gran % (0-4) % Seg Neutrophils % % Lymphocytes % % Monocytes % % Eosinophils % % Basophils % % Neutrophils # (1.6-8.9) K/mcL Lymphocytes # (0.6-4.6) K/mcL Monocytes # (0.0-1.3) K/mcL Eosinophils # (0.0-0.6) K/mcL Basophils # (0.0-0.2) K/mcL PT (9.4-12.1) Seconds INR APTT (26.0-36.0) Seconds D-Dimer (0-500) ng/mLFEU Sodium (136-145) mEq/L Potassium (3.5-5.1) mEq/L Chloride (98-107) mEq/L Carbon Dioxide (23-29) mEq/L BUN (6-20) mg/dL Creatinine (0.70-1.30) mg/dL Est GFR ( Amer) (> 60) Est GFR (Non-Af Amer) (> 60) BUN/Creatinine Ratio (6-26) Glucose (70-105) mg/dL Calculated Osmolality (280-300) Lactic Acid 1.7 (0.5-2.2) mmol/L Calcium (8.6-10.3) mg/dL Troponin I (< 0.04) ng/mL B-Natriuretic Peptide 380 H (Less than 100) pg/mL Specimen Rejected Hemolyzed - Radiology Data Radiology results reviewed: Yes I reviewed the patient's radiology results. - EKG Data EKG #1 EKG attestation: Yes I reviewed and interpreted this EKG. EKG results narrative: Normal sinus rhythm with a rate of 95 without evidence of STEMI or other dysrhythmia.
[2019-02-08] MEDS ORDERED: *HR* OxyCODONE Immed Rel 5 MG TABLET PO ONE (12:41)
--- NOTE | 2019-02-08 18:20 | Internal Med History&Physical ---
Date of Encounter: 02/08/19 Time of Encounter: 17:00 Internal Medicine - H&P: HPI Chief complaint: Pain Admitted From: Home History of present illness: Patient is a 58-year-old male with past medical history significant for non- Hodgkin lymphoma follicular type, sarcoma, renal cell carcinoma status post unilateral nephrectomy, emphysema/COPD, 30 pack year smoker and CHF who presents due to acute on chronic generalized pain with shortness of breath. Patient is a poor historian but states that he came to the ER because I am tired and have too much pain all over. In the ER, patient found to have leukocytosis with white blood cell count 11.7 which has improved from 19.6 on 01/30/19. She also found to have a BNP of 380 which has improved from 899 on 02/04/19. CTA of the chest showed no PE but she was noted to have emphysema with acute bilateral patchy new pulmonary opacities suspicious for pulmonary edema versus atypical pneumonia; no lobar consolidation identified. She also noted to have new mild right pleural effusion. Patient will be admitted to the medical surgical floor for further evaluation/management. Past Med Surg Social Fam HX - Past Medical History Medical history: cancer, COPD, hyperlipidemia, other Additional medical history: Scarcoma (head and neck), skin cancer, Mass to right lower lobe, heart murmur Psychiatric history: depression - Past Surgical History Surgical History: tonsillectomy Additional surgical history: partial left nephrectomy (for cancer), 3 surgeries on head, 1 on neck, tumor removed from right breast, rods and pins to left leg, left groin biopsy, needle biopsy to right groin - Social History Smoking Status: Current every day smoker Packs per day: 1 Smokeless Tobacco Status: No Alcohol use: none Drug use: none - Family History Father Living Status: Age at : 67 Hx Family Cancer: Yes (T-Cell Lyphoma) Internal Medicine - H&P: Meds Albuterol Sulfate [Albuterol Inhaler] 2 puff IH QID 04/16/15 [History] Oxycodone HCl/Acetaminophen [Percocet 10-325 mg Tablet] 1 tab PO TID PRN 04/16/15 [History] Prochlorperazine Maleate [Compazine] 10 mg PO Q6HR PRN #30 tablet 10/06/17 [Rx] clonazePAM [Clonazepam] 1 mg PO HS 01/19/19 [History] Promethazine [Phenergan] 1 tab PO Q6HR PRN #30 tablet 01/23/19 [Rx] Ondansetron HCl [Zofran] 4 mg PO Q6HR PRN 02/05/19 [History] Allergy/AdvReac Type Severity Reaction Status Date / Time Penicillins Allergy Severe Swelling Verified 02/08/19 10:44 of Lip/Tongue/Throat morphine Allergy Rash Verified 02/08/19 10:44 All Systems PM: A 10-system review of systems was performed and is negative for pertinent findings except as documented above in the HPI. - Constitutional Vitals: Temp Pulse Resp BP Pulse Ox 98.3 F 110 20 122/72 92 02/08/19 17:45 02/08/19 17:45 02/08/19 17:45 02/08/19 17:45 02/08/19 18:17 Exam: General appearance: Present: A&O X 3, no acute distress - Head Head exam: Present: normocephalic - Eye Eye exam: Present: normal appearance - ENT ENT exam: Present: mucous membranes moist - Respiratory Respiratory exam: Present: CTAB. Absent: accessory muscle use, rales, rhonchi, wheezes - Cardiovascular Cardiovascular exam: Present: RRR, +S1, +S2. Absent: diastolic murmur, gallop, rubs, systolic murmur - GI/Abdominal GI/Abdominal exam: Present: normal bowel sounds, soft, no peritoneal signs. Absent: distended, tenderness - Extremities Exam Extremities exam: Absent: pedal edema - Neurological Exam Neurological exam: Present: alert, oriented X3, no focal deficits. Absent: altered - Psychiatric Psychiatric exam: -normal mood Skin exam: -normal color Internal Med - H&P Results - Labs CBC & Chem 7: 02/08/19 11:12 02/08/19 11:12 Labs: Short CBC 02/08/19 Range/Units 11:12 WBC 11.7 H (4.3-11.1) K/mcL Hgb 10.7 L (12.9-16.9) g/dL Hct 33.1 L (37.5-50.1) % Plt Count 133 L (140-400) K/mcL Neutrophils # 10.2 H (1.6-8.9) K/mcL BMP 02/08/19 11:12 Sodium 140 Potassium 3.9 Chloride 99 Carbon Dioxide 34 H BUN 20 Creatinine 0.51 L Glucose 119 H Calcium 8.4 L Cardiac Enzymes 02/08/19 Range/Units 11:12 Troponin I 0.03 (< 0.04) ng/mL - Impressions ITS Impressions Chest X-Ray 02/08/19 10:53 IMPRESSION: Stable appearance of the chest. Hyperinflation of lung gay. Left apical changes that are stable. Patchy bilateral airspace changes which could be in part chronic. No definite superimposed acute process. CT could better evaluate lung parenchyma if indicated. D/ / 02/08/2019 11:38:51 Ginny Cueva MD / [email or web address] Interpreting Provider: Ginny Cueva MD Chest CTA 02/08/19 11:51 IMPRESSION: 1. No acute pulmonary emboli. 2. Emphysema with stable left hemithorax volume loss and post treatment changes with chronic esophagitis. 3. Acute bilateral patchy new pulmonary opacities which may represent developing pulmonary edema versus atypical pneumonia. No lobar consolidation. 4. New mild right pleural effusion. D/ / 02/08/2019 13:56:47 Rory Lira MD / [email or web address] Interpreting Provider: Rory Lira MD - Assessment and Plan (1) Acute exacerbation of chronic obstructive airways disease Current Visit: Yes Status: Acute Assessment and plan: Patient satting in the low 90s on room air CTA of the chest showed no PE but she was noted to have emphysema with acute bilateral patchy new pulmonary opacities suspicious for pulmonary edema versus atypical pneumonia; no lobar consolidation identified. He was also noted to have new mild right pleural effusion. Will continue scheduled DuoNeb's and IV Solu-Medrol started in the ER in addition to IV azithromycin cover for COPD exacerbation and for any possibility of atypical pneumonia; patient's leukocytosis has improved since 02/04/19 from 19.6 on 01/30/19 to 11.7 today; patient's afebrile (2) CHF exacerbation Current Visit: No Status: Acute Assessment and plan: Patient also found to have elevated BNP of 380 which has improved from 899 on 02/04/19. Echocardiogram on 02/05/19 showed LVEF 65% with normal left ventricular diastolic function patient was noted to have mild pulmonary hypertension with RVSP of 40 to mmHG CTA findings concerning for pulmonary edema as above Continue IV diuresis started in the ER Qualifiers: Heart failure type: unspecified Qualified Code(s): I50.9 - Heart failure, unspecified (3) Cancer associated pain Current Visit: No Status: Acute Assessment and plan: Patient was seen last visit by palliative care with recommendation for fentanyl patch and OxyContin Will start patient on oxycodone 10 mg every 6 hours as needed (4) Follicular lymphoma Current Visit: No Status: Acute Assessment and plan: Hematology oncology following as an outpatient Qualifiers: Follicular lymphoma grade: grade II Lymphoma site: axillary Qualified Code(s): C82.14 - Follicular lymphoma grade II, lymph nodes of 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
[2019-02-08] MEDS ORDERED: Naloxone 0.4 MG/ML INJ IVP PRN (18:39)
[2019-02-08] MEDS ORDERED: Azithromycin 500 MG in D5% in Water 250 ML IVPB SCH (19:00)
[2019-02-08] MEDS: *HR* OxyCODONE Immed Rel 5 MG TABLET PO PRN (19:58)
[2019-02-08] MEDS: Furosemide 40 MG/4 ML VIAL IVP SCH (19:58)
[2019-02-08] MEDS: Ipratropium/Albuterol Neb 3 ML IH SCH ×2 (20:35→23:14)
[2019-02-08] MEDS ORDERED: clonazePAM 0.5 MG TABLET PO SCH (23:00)
[2019-02-08 23:07] LABS: Adenovirus Not Detected (Not Detect); Bordetella Pertussis Not Detected (Not Detect); Chlamydophila pneumoniae Not Detected (Not Detect); Coronavirus 229E Not Detected (Not Detect); Coronavirus HKU1 Not Detected (Not Detect); Coronavirus NL63 Not Detected (Not Detect); Coronavirus OC43 Not Detected (Not Detect); Human Metapneumovirus Not Detected (Not Detect); Human Rhinovirus/Enterovirus Not Detected (Not Detect); Influenza A Subtype 2009 H1 Not Detected (Not Detect); Influenza A Untypeable Not Detected (Not Detect); Influenza B Not Detected (Not Detect); Mycoplasma pneumoniae Not Detected (Not Detect); Parainfluenza Virus 1 Not Detected (Not Detect); Parainfluenza Virus 2 Not Detected (Not Detect); Parainfluenza Virus 3 Not Detected (Not Detect); Parainfluenza Virus 4 Not Detected (Not Detect); Respiratory Syncytial Virus Not Detected (Not Detect)
[2019-02-09] MEDS: methylPREDNISolone 125 MG/2 ML VIAL IVP SCH ×2 (00:18→08:29)
[2019-02-09] MEDS: *HR* OxyCODONE/APAP 10/325 TABLET PO PRN ×2 (00:21→08:29)
[2019-02-09] MEDS: Ipratropium/Albuterol Neb 3 ML IH SCH ×4 (04:02→15:25)
[2019-02-09] MEDS: *HR* OxyCODONE Immed Rel 5 MG TABLET PO PRN ×2 (05:34→11:21)
[2019-02-09] MEDS ORDERED: *HR* Heparin 5,000 UNIT/ML VIAL SQ SCH (06:00)
[2019-02-09 06:40] LABS: Basophils % 0.3 %; Hemoglobin 10.5 g/dL (12.9-16.9); Immature Granulocytes % 0.6 % (0-4); Lymphocytes # 0.4 K/mcL (0.6-4.6); Lymphocytes % 4.8 %; Mean Corpuscular HGB Conc 32.8 g/dL (31.6-35.5); Mean Corpuscular Hemoglobin 32.4 pg (28.0-33.3); Mean Corpuscular Volume 98.8 fL (83.0-100.0); Mean Platelet Volume 9.3 fL (9.4-12.4); Monocytes # 0.1 K/mcL (0.0-1.3); Monocytes % 1.4 %; Neutrophils # 7.4 K/mcL (1.6-8.9); Platelet Count 152 K/mcL (140-400); Red Blood Count 3.24 M/mcL (4.19-5.50); Red Cell Distribution Width 13.2 % (11.5-14.5); Segmented Neutrophils % 92.9 %
[2019-02-09 06:55] LABS: BUN/Creatinine Ratio 31 (6-26); Blood Urea Nitrogen 15 mg/dL (6-20); Calcium 8.5 mg/dL (8.6-10.3); Carbon Dioxide 36 mEq/L (23-29); Chloride 95 mEq/L (98-107); Glucose 192 mg/dL (70-105); Osmolality,Calculated 294 (280-300); Potassium 3.8 mEq/L (3.5-5.1); Sodium 139 mEq/L (136-145); eGFR For African Americans > 60 (> 60); eGFR For Non-African Americans > 60 (> 60)
[2019-02-09] MEDS ORDERED: Ondansetron 4 MG/2 ML VIAL IVP PRN (08:19)
[2019-02-09] MEDS: Furosemide 40 MG/4 ML VIAL IVP SCH (08:29)
[2019-02-09] MEDS ORDERED: *HR* OxyCODONE Immed Rel 15 MG TABLET PO PRN (11:18)
[2019-02-09] MEDS ORDERED: cloNIDine HCl 0.1 MG TABLET PO PRN (11:22)
--- NOTE | 2019-02-09 11:52 | Internal Med Progress Note ---
Hospitalist Progress Note - Encounter Date of Encounter: 02/09/19 - Subjective Interval History: Patient is a 58-year-old male with past medical history significant for non- Hodgkin lymphoma follicular type, sarcoma, renal cell carcinoma status post unilateral nephrectomy, emphysema/COPD, 30 pack year smoker and CHF who presents due to acute on chronic generalized pain with shortness of breath. - Exam Vitals: Temp Pulse Resp BP Pulse Ox 98.2 F 113 16 103/59 93 02/09/19 08:45 02/09/19 08:45 02/09/19 08:45 02/09/19 08:45 02/09/19 08:45 - Assessment and Plan (1) Acute exacerbation of chronic obstructive airways disease Current Visit: Yes Status: Acute Assessment and Plan: Patient requiring supplemental oxygenation at 2 L per minute CTA of the chest showed no PE but she was noted to have emphysema with acute bilateral patchy new pulmonary opacities suspicious for pulmonary edema versus atypical pneumonia; no lobar consolidation identified. He was also noted to have new mild right pleural effusion. Respiratory panel negative Will continue scheduled DuoNeb's, IV Solu-Medrol and IV azithromycin (2) CHF exacerbation Current Visit: No Status: Acute Assessment and Plan: Patient also found to have elevated BNP of 380 which has improved from 899 on 02/04/19. Echocardiogram on 02/05/19 showed LVEF 65% with normal left ventricular diastolic function patient was noted to have mild pulmonary hypertension with RVSP of 40 to mmHG CTA findings concerning for pulmonary edema as above Continue IV diuresis (3) Cancer associated pain Current Visit: No Status: Acute Assessment and Plan: Patient was seen last visit by palliative care with recommendation for fentanyl patch and OxyContin Will start patient on home narcotic pain medications Will reconsult palliative care and appreciate recommendations (4) Follicular lymphoma Current Visit: No Status: Acute Assessment and Plan: Hematology oncology following as an outpatient (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 Current Visit: No Status: Acute Assessment and Plan: She with history of renal cell carcinoma with nephrectomy (6) Sarcoma of head and neck Current Visit: No Status: Acute Assessment and Plan: Patient with history of sarcoma of head and neck DVT Prophylaxis: Heparin subcutaneous - Time Spent with Patient Total time spent is greater than 50% in coordination of care (as documented) at patient's floor/unit and/or counseling patient: Internal Medicine: Result - Labs CBC & Chem 7: 02/09/19 06:14 02/09/19 06:14 Labs: Short CBC 02/08/19 02/09/19 Range/Units 11:12 06:14 WBC 11.7 H 8.0 (4.3-11.1) K/mcL Hgb 10.7 L 10.5 L (12.9-16.9) g/dL Hct 33.1 L 32.0 L (37.5-50.1) % Plt Count 133 L 152 (140-400) K/mcL Neutrophils # 10.2 H 7.4 (1.6-8.9) K/mcL BMP 02/08/19 02/09/19 11:12 06:14 Sodium 140 139 Potassium 3.9 3.8 Chloride 99 95 L Carbon Dioxide 34 H 36 H BUN 20 15 Creatinine 0.51 L 0.49 L Glucose 119 H 192 H Calcium 8.4 L 8.5 L Cardiac Enzymes 02/08/19 Range/Units 11:12 Troponin I 0.03 (< 0.04) ng/mL - ABG Interpretation ABG results: PT/INR, D-dimer PT 10.9 Seconds (9.4-12.1) 02/08/19 11:12 3329 ng/mLFEU (0-500) H 02/08/19 11:12 - Impressions Impressions Chest CTA 02/08/19 11:51 IMPRESSION: 1. No acute pulmonary emboli. 2. Emphysema with stable left hemithorax volume loss and post treatment changes with chronic esophagitis. 3. Acute bilateral patchy new pulmonary opacities which may represent developing pulmonary edema versus atypical pneumonia. No lobar consolidation. 4. New mild right pleural effusion. D/ / 02/08/2019 13:56:47 Rory Lira MD / [email or web address] Interpreting Provider: Rory Lira MD Consult Discharge Plan - Plan Referrals: Brianna Bojorquez MD [Primary Care Provider] - (2) CHF exacerbation Qualifiers: Heart failure type: unspecified Qualified Code(s): I50.9 - Heart failure, unspecified (4) Follicular lymphoma Qualifiers: Follicular lymphoma grade: grade II Lymphoma site: axillary Qualified Cod e(s): C82.14 - Follicular lymphoma grade II, lymph nodes of axilla and upper limb
[2019-02-09] MEDS ORDERED: Sennosides 8.6 MG TABLET PO PRN (11:59)
[2019-02-09] MEDS ORDERED: *HR* FentaNYL PATCH 50 MCG PATCH TD SCH ×2 (12:00→14:00)
--- NOTE | 2019-02-09 12:01 | Palliative - Consult Note ---
<Alicia Lopezgirish Mcleod - Last Filed: 02/09/19 12:06> Date of Encounter: 02/09/19 Time of Encounter: 11:59 - Assessment and Plan (1) Goals of care, counseling/discussion Current Visit: Yes Status: Acute Assessment and plan: Had goals of care discussion with patient. States he lives at home with his mother, who is currently admitted at [facility], and they are able to care for one another. Discussed current clinical status relating to pain and history of multiple malignancies. Pt states he no longer wishes to pursue chemotherapy or other cancer treatment options. States his new focus and goal is pain management and remaining comfortable. Also discussed that he would ideally like to go home at time of discharge, but will think about considering rehab/SNF. Also discussed CODE STATUS. Pt was previously DNR-CCA-DNI, however now that his goals have changed the pt elected to be DNR-CC. State form signed and order placed. (2) Palliative care encounter Current Visit: Yes Status: Acute (3) Cancer associated pain Current Visit: Yes Status: Acute Assessment and plan: At previous admission, transition to fentanyl patch was initiated. However with a 2 day treatment gap the dose of the fentanyl patch will be started at 50mcg and titrated up appropriately. Will also provide Roxicodone 30mg q4hr as needed. Pt to also continue his Percocet 10/325 TID. Provided pt daily prn Senna for constipation associated with pain medication regimen. Palliative-CN HPI - Data of Consult Consult date: 02/09/19 Requesting Physician: Florentino Woo Primary Care Provider: Brianna Bojorquez - Consult Narrative History of present illness: Mr. Angeles is a 58 year old male PMH of non-Hodgkin lymphoma follicular type, sarcoma of the head and neck, renal cell carcinoma s/p unilateral nephrectomy, and COPD with emphysema. This is his 3rd admission within the past month. On 01/19/19 he was admitted for colitis 2/2 chemotherapy agents. On 02/04/19 he was admitted for shortness of breath and treated for pneumonia. During the most recent admission palliative care was consulted for further pain management related to his cancer, however the patient signed out AMA on 02/07/19. He presented to the ED on 02/08/19 complaining of generalized pain and shortness of breath. The patient states his pain was controlled with regimen prior to signing out AMA, but as he did not have pain medication at home, the pain returned. CTA chest in the ED showed acute bilateral patchy pulmonary opacities, possibly pulmonary edema vs atypical pneumonia. No lobar consolidation or PE was visualized. Pt was started on schedules Duonebs, IV solumedrol, and Azithromycin. The palliative care team was consulted for further assistance with pain management. Pt seen and examined at bedside. Pt resting in bed. Reports he is hurting "all over very bad". States his shortness of breath is about the same. States he knows me made a mistake signing out AMA previously. Reports he wishes to stay and work to be treated. CC: Florentino Woo - Time Spent with Patient Time: Total time spent is greater than 50% in coordination of care (as documented) at patient's floor/unit and/or counseling patient: Past Med Surg Social Fam HX - Past Medical History Medical history: cancer, COPD, hyperlipidemia, other Additional medical history: Scarcoma (head and neck), skin cancer, Mass to right lower lobe, heart murmur Psychiatric history: depression - Past Surgical History Surgical History: tonsillectomy Additional surgical history: partial left nephrectomy (for cancer), 3 surgeries on head, 1 on neck, tumor removed from right breast, rods and pins to left leg, left groin biopsy, needle biopsy to right groin - Social History Smoking Status: Current every day smoker Packs per day: 1 Smokeless Tobacco Status: No Alcohol use: none Drug use: none - Family History Father Living Status: Age at : 67 Hx Family Cancer: Yes (T-Cell Lyphoma) Medications and Allergies Albuterol Sulfate [Albuterol Inhaler] 2 puff IH QID 04/16/15 [History] Oxycodone HCl/Acetaminophen [Percocet 10-325 mg Tablet] 1 tab PO TID PRN 04/16/15 [History] Prochlorperazine Maleate [Compazine] 10 mg PO Q6HR PRN #30 tablet 10/06/17 [Rx] clonazePAM [Clonazepam] 1 mg PO HS 01/19/19 [History] Budesonide [Entocort EC] 9 mg PO DAILY 02/08/19 [History] Ondansetron ODT [Zofran ODT] 4 mg SL Q6HR PRN 05/24/19 [History] Promethazine [Phenergan] 25 mg PO Q6HR PRN 02/08/19 [History] Morphine Immed Rel [Morphine Sulfate] 30 mg PO TID PRN 02/09/19 [History] OxyCODONE Immed Rel [Roxicodone 30 MG] 30 mg PO Q8H 02/09/19 [History] cloNIDine HCl [Clonidine HCl] 0.5 mg PO HS 02/09/19 [History] Allergy/AdvReac Type Severity Reaction Status Date / Time Penicillins Allergy Severe Swelling Verified 02/08/19 10:44 of Lip/Tongue/Throat morphine Allergy Rash Verified 02/08/19 10:44 All systems: reviewed and no additional remarkable complaints except as stated - Constitutional Constitutional ROS PAL: malaise Palliative Care-Exam - Constitutional Vitals: Temp Pulse Resp BP Pulse Ox 98.2 F 113 16 103/59 93 02/09/19 08:45 02/09/19 08:45 02/09/19 08:45 02/09/19 08:45 02/09/19 08:45 General appearance: Present: average body habitus, cooperative, no acute distress - Head Head Exam: Present: atraumatic, normal inspection, normocephalic - Eye Eye exam: Present: EOMI, normal appearance, PERRL - Respiratory Respiratory exam: Present: decreased breath sounds. Absent: respiratory distress, tachypnea - Cardiovascular Cardiovascular exam: Present: RRR, +S1, +S2 - GI/Abdominal Exam GI/Abdominal exam: Present: soft. Absent: distended, tenderness - Extremities Exam Extremities exam: Present: pedal edema (+4 bilaterally ). Absent: calf tenderness, tenderness - Neurological Exam Neurological exam: Present: alert, normal gait, oriented X3. Absent: facial droop, speech deficit - Expanded Neurological Exam Coma Scale Eye Opening: Spontaneous Coma Scale Motor Response: Obeys Commands Coma Scale Verbal Response: Oriented Coma Scale Total: 15 - Psychiatric Psychiatric exam: Present: anxious - Skin Skin exam: Present: dry, intact, pallor, warm Internal Medicine - CN: Reslt - Labs CBC & Chem 7: 02/09/19 06:14 02/09/19 06:14 Labs: Short CBC 02/09/19 Range/Units 06:14 WBC 8.0 (4.3-11.1) K/mcL Hgb 10.5 L (12.9-16.9) g/dL Hct 32.0 L (37.5-50.1) % Plt Count 152 (140-400) K/mcL Neutrophils # 7.4 (1.6-8.9) K/mcL BMP 02/09/19 06:14 Sodium 139 Potassium 3.8 Chloride 95 L Carbon Dioxide 36 H BUN 15 Creatinine 0.49 L Glucose 192 H Calcium 8.5 L - ABG Interpretation ABG results: PT/INR, D-dimer PT 10.9 Seconds (9.4-12.1) 02/08/19 11:12 3329 ng/mLFEU (0-500) H 02/08/19 11:12 - Impressions Impressions Chest CTA 02/08/19 11:51 IMPRESSION: 1. No acute pulmonary emboli. 2. Emphysema with stable left hemithorax volume loss and post treatment changes with chronic esophagitis. 3. Acute bilateral patchy new pulmonary opacities which may represent developing pulmonary edema versus atypical pneumonia. No lobar consolidation. 4. New mild right pleural effusion. D/ / 02/08/2019 13:56:47 Rory Lira MD / bcarter Interpreting Provider: Rory Lira MD Consult Discharge Plan - Plan Referrals: Brianna Bojorquez MD [Primary Care Provider] - Palliative Quality Palliative Quality: Screen for Code Status: Yes, Screen for Goals of Care: Yes, Screen for Pain: Yes, If Pain Regimen Started, Initiate Bowel Regimen: Yes, Screen for Nausea/Vomitting: Yes Code Status: 02/08/19 18:39 Resuscitation Status: Active [RES] Routine Comment: Resuscitation Status: [id number] 02/09/19 11:58 Resuscitation Status: Active [RES] Routine Comment: Resuscitation Status: DNR-Comfort Care Palliative Scale - Palliative Performance Scale How ambulatory is this patient?: Full What is patient's level of activity and evidence of disease?: Unable normal job/work, Significant disease How much self-care assistance does patient require?: Full How much oral intake does the patient have?: Normal What is this patient's level of consciousness?: Full Palliative Performance Score: 70 % <Jayde Lowery - Last Filed: 02/09/19 13:18> Date of Encounter: 02/09/19 Palliative-CN HPI - Data of Consult Requesting Physician: Florentino Woo Primary Care Provider: Brianna Bojorquez - Consult Narrative History of present illness: Mr. Angeles is a 58 year old male CC: Florentino Woo - Time Spent with Patient Time: Total time spent is greater than 50% in coordination of care (as documented) at patient's floor/unit and/or counseling patient: Palliative Care-Exam - Constitutional Vitals: Temp Pulse Resp BP Pulse Ox 98.1 F 105 16 102/61 94 02/09/19 12:00 02/09/19 12:00 02/09/19 12:00 02/09/19 12:00 02/09/19 12:00 Internal Medicine - CN: Reslt - Labs CBC & Chem 7: 02/09/19 06:14 02/09/19 06:14 Labs: Short CBC 02/09/19 Range/Units 06:14 WBC 8.0 (4.3-11.1) K/mcL Hgb 10.5 L (12.9-16.9) g/dL Hct 32.0 L (37.5-50.1) % Plt Count 152 (140-400) K/mcL Neutrophils # 7.4 (1.6-8.9) K/mcL BMP 02/09/19 06:14 Sodium 139 Potassium 3.8 Chloride 95 L Carbon Dioxide 36 H BUN 15 Creatinine 0.49 L Glucose 192 H Calcium 8.5 L - ABG Interpretation ABG results: PT/INR, D-dimer PT 10.9 Seconds (9.4-12.1) 02/08/19 11:12 3329 ng/mLFEU (0-500) H 02/08/19 11:12 - Impressions Impressions Chest CTA 02/08/19 11:51 IMPRESSION: 1. No acute pulmonary emboli. 2. Emphysema with stable left hemithorax volume loss and post treatment changes with chronic esophagitis. 3. Acute bilateral patchy new pulmonary opacities which may represent developing pulmonary edema versus atypical pneumonia. No lobar consolidation. 4. New mild right pleural effusion. D/ / 02/08/2019 13:56:47 Rory Lira MD / xander Interpreting Provider: Rory Lira MD - Attending Attestation I performed a history and physical examination of the patient and discussed his management with the resident. I reviewed the residents note and agree with the documented findings and plan of care, except as follow: This is a 58 years old male with history of not also came lymphoma follicular type, sarcoma of the head and neck, renal cell carcinoma status post unilateral nephrectomy, COPD with emphysema. Patient is known to palliative care service from his latest admission, when he signed out AMA on 02/06/19. Patient represented yesterday complaining of generalized pain, and shortness of breath. Patient has not have any pain medications for the last 2 days due to he signing out AMA. Before the latest discharge patient was on fentanyl patch 75 g every 3 days, and oxycodone 30 mg every 4 hours for pain. Patient had been restarted on a lower dose of oxycodone only, and was in generalized pain crisis at the time of exam. Plan: Pain management: - Start fentanyl patch, cut down to 50 mcg, due to patient being off meds for 2 days, to titrate up as needed. - Oxycodone 30 mg q4hrs prn - bowel regimen Advanced care planning: patient wants transition to comfort care at this point. he is still mobile, and would like to return home to live with him mother. Mother to be discharged from hospital today, as per pt she is much improved. Patient made aware that as the disease progresses, will need more help for care. He is against SNF. Planning for family meeting next week, for further planning. DNRCC form filled. Referral made to [place] [facility], if pain remains uncontrolled tomorw, will evaluate if needed GIP for pain management and planning before return home. Total ACP time 20 minutes. Palliative Quality Code Status: 02/08/19 18:39 Resuscitation Status: Active [RES] Routine Comment: Resuscitation Status: [id number] 02/09/19 11:58 Resuscitation Status: Active [RES] Routine Comment: Resuscitation Status: DNR-Comfort Care
--- NOTE | 2019-02-09 15:41 | Discharge Summary ---
Orders not resulted at time of discharge: Pending orders 02/08/19 12:16 Culture,Blood [BC] Stat Date of Encounter: 02/09/19 Time of Encounter: 11:00 - Discharge Diagnosis (1) Goals of care, counseling/discussion Priority: Primary Status: Acute (2) Palliative care encounter Priority: Primary Status: Acute (3) Cancer associated pain Priority: Primary Status: Acute Hospital course: Patient is a 58-year-old male with past medical history significant for non- Hodgkin lymphoma follicular type, sarcoma, renal cell carcinoma status post unilateral nephrectomy, emphysema/COPD, 30 pack year smoker and CHF who presents due to acute on chronic generalized pain with shortness of breath. Patient is a poor historian but states that he came to the ER because I am tired and have too much pain all over. In the ER, patient found to have leukocytosis with white blood cell count 11.7 which has improved from 19.6 on 01/30/19. She also found to have a BNP of 380 which has improved from 899 on 02/04/19. CTA of the chest showed no PE but she was noted to have emphysema with acute bilateral patchy new pulmonary opacities suspicious for pulmonary edema versus atypical pneumonia; no lobar consolidation identified. She also noted to have new mild right pleural effusion. Patient will be admitted to the medical surgical floor for further evaluation/management. During patients hospital stay his shortness of breath resolved and his acute on chronic pain was controlled after restarting home medications. Patient admitted that his reason for coming to the hospital was pain control due to his cancer. Patient will be discharged with a limited amount of pain narcot ics to follow-up with his primary care physician who is managing pain control. - Time Spent with Patient Total time spent providing and/or coordinating discharge services: Time spent: Less than 30 minutes - Discharge Medications Prescriptions: Continued Albuterol Sulfate [Albuterol Inhaler] 2 puff IH QID Prochlorperazine Maleate [Compazine] 10 mg PO Q6HR PRN #30 tablet PRN Reason: Nausea clonazePAM [Clonazepam] 1 mg PO HS Ondansetron ODT [Zofran ODT] 4 mg SL Q6HR PRN PRN Reason: NAUSEA/VOMITING Promethazine [Phenergan] 25 mg PO Q6HR PRN PRN Reason: Nausea Budesonide [Entocort EC] 9 mg PO DAILY cloNIDine HCl [Clonidine HCl] 0.5 mg PO HS Morphine Immed Rel [Morphine Sulfate] 30 mg PO TID PRN 4 Days #12 tablet PRN Reason: Analgesia Oxycodone HCl/Acetaminophen [Percocet 10-325 mg Tablet] 1 tab PO TID PRN 4 Days #12 tablet PRN Reason: Pain OxyCODONE Immed Rel [Roxicodone 30 MG] 30 mg PO Q8H 4 Days #12 tablet Home Medications: Albuterol Sulfate [Albuterol Inhaler] 2 puff IH QID 04/16/15 [History] Prochlorperazine Maleate [Compazine] 10 mg PO Q6HR PRN #30 tablet 10/06/17 [Rx] clonazePAM [Clonazepam] 1 mg PO HS 01/19/19 [History] Budesonide [Entocort EC] 9 mg PO DAILY 02/08/19 [History] Ondansetron ODT [Zofran ODT] 4 mg SL Q6HR PRN 02/08/19 [History] Promethazine [Phenergan] 25 mg PO Q6HR PRN 02/08/19 [History] Morphine Immed Rel [Morphine Sulfate] 30 mg PO TID PRN 4 Days #12 tablet 02/09/19 [Rx] OxyCODONE Immed Rel [Roxicodone 30 MG] 30 mg PO Q8H 4 Days #12 tablet 02/09/19 [Rx] Oxycodone HCl/Acetaminophen [Percocet 10-325 mg Tablet] 1 tab PO TID PRN 4 Days #12 tablet 02/09/19 [Rx] cloNIDine HCl [Clonidine HCl] 0.5 mg PO HS 02/09/19 [History] Allergies/Adverse Reactions: Allergy/AdvReac Type Severity Reaction Status Date / Time Penicillins Allergy Severe Swelling Verified 02/08/19 10:44 of Lip/Tongue/Throat morphine Allergy Rash Verified 02/08/19 10:44 Date of admission: 02/08/19 18:39 Primary care physician: Brianna Bojorquez Consults: 02/08/19 17:22 Consult to Nutrition [CONS] Routine Comment: Cancer and chemo have decreased appetite Consulting Provider: NUTRITION Reason for Dietary Consult: MST Score Consult to Spray Painter Helper [CONS] Routine Reason for SW Consult: O2, discharge planning 02/08/19 18:46 Consult to Palliative Care [CONS] Routine Comment: Consulting Provider: Palliative Care Kerry Reason for Consult: Cancer with chronic pain Call Completed: No - Constitutional Vitals: Temp Pulse Resp BP Pulse Ox 98.1 F 105 16 102/61 94 02/09/19 12:00 02/09/19 12:00 02/09/19 12:00 02/09/19 12:00 02/09/19 12:00 Exam: Gen.: Nonacute distress, alert and oriented 3 ENT: Mucosal membranes moist Respiratory: Lungs are clear to auscultation bilaterally without any wheezing rhonchi or rales Cardiovascular: Normal S1 and S2 regular rate rhythm no murmurs rubs or gallops Abdomen: Soft, nontender and nondistended with positive bowel sounds Extremities: No lower extremity edema Skin: Normal color - Patient Status Disposition: Home, Self-Care Condition: Fair - Discharge Instructions Follow Up With: Brianna Bojorquez MD [Primary Care Provider] -
[2019-02-09] MEDS ORDERED: *HR* OxyCODONE Immed Rel 15 MG TABLET PO SCH (16:00)
[2019-02-09 16:50] VITALS: BP 109/65
--- NOTE | 2019-02-09 19:22 | Electrocardiograph Report ---
[place] [facility] Test Date: 2019-02-08 Pat Name: Chris Angeles Department: EXAM8 Room: 3A22 Gender: M Business Leader: : 1960 Requested By: Nikita Hansen Order Number: [id number] Reading MD: Gustabo Penn Measurements Intervals [place] Rate: 95 P: 69 MS: 132 QRS: 69 QRSD: 83 T: 72 QT: 341 QTc: 429 Interpretive Statements Sinus rhythm Probable left atrial enlargement Electronically Signed On 02-09-2019 19:21:04 EDT by Gustabo Penn
== END 2019-02-09 18:58 | disposition home or self-care (01) | DRG 861 ==
LOC: 3ANU 10:40 → EMEROOARM 10:40 → 3ANU 17:15 → SUATTDRO 18:39
PROVIDERS: ADMIT Internal Medicine Nephrology; ATTEND Hospitalist